=== PATIENT | female | born 1995 | race Two or more races ===

== ENCOUNTER → 2020-05-29 08:38 | Outpatient (BNVA) | payer OTHER, SELFPAY | PROVIDERS: PCP Family Medicine; Visit Provider Nurse Practitioner | DX: R10.33 Periumbilical pain (principal); K21.9 Gastro-esophageal reflux disease without esophagitis; R14.0 Abdominal distension (gaseous); K58.2 Mixed irritable bowel syndrome; Z87.891 Personal history of nicotine dependence | CPT/HCPCS: Q3014 ==

== ENCOUNTER 2023-01-27 09:56 | Outpatient (REF) | payer OTHER, MEDICAID, SELFPAY ==
[2023-01-27 11:19] LABS: MANUAL DIFF FLAG NO
[2023-01-27 11:24] LABS: Basophils Absolute Auto 0.1 X10*3/uL (0.0-0.2); Basophils Percent Auto 0.5 % (0-2); Eosinophils Absolute Auto 0.2 X10*3/uL (0.0-0.4); Eosinophils Percent Auto 2.1 % (0-4); Hematocrit 33.5 % (37.0-47.0); Imm Gran Abs Auto 0.04 X10*3/uL (0.00-0.03); Imm Gran Pct Auto 0.4 % (0.0-0.4); Lymphocytes Absolute Auto 2.2 X10*3/uL (1.2-4.9); Lymphocytes Percent Auto 21.6 % (20-40); Mean Corpuscular HGB Conc 29.9 g/dl (31.0-35.0); Mean Corpuscular Hemoglobin 24.4 pg (27.0-33.0); Mean Corpuscular Volume 81.7 fL (80.0-98.0); Monocytes Absolute Auto 0.5 X10*3/uL (0.1-1.2); Monocytes Percent Auto 5.1 % (2-11); Neutrophils Absolute Auto 7.3 x10*3/uL (2.0-8.3); Neutrophils Percent Auto 70.3 % (45-73); Platelet Count 367 X10*3/uL (160-400); Red Cell Distribution Width 16.8 % (11.0-16.0); White Blood Count 10.3 X10*3/uL (4.8-10.8)
[2023-01-27 11:58] LABS: Cholesterol 150 mg/dL (<200); HDL Cholesterol 39 mg/dL (>40); LDL Cholesterol Calculated 95 mg/dL (<100); Rheumatoid Factor < 13.0 IU/mL (<15.0); Triglycerides 83 mg/dL (<150)
[2023-01-27 12:00] LABS: Alanine Aminotransferase 24 U/L (0-31); Albumin Level 4.2 g/dL (3.5-5.0); Alkaline Phosphatase 95 U/L (39-117); Anion Gap 12 (12-20); Aspartate Amino Transferase 17 U/L (5-31); Bilirubin Total 0.3 mg/dL (0.0-1.0); Blood Urea Nitrogen 10 mg/dL (9-16); C Reactive Protein 2.99 mg/dL (< or = 0.50); Calcium 9.6 mg/dL (8.4-10.2); Carbon Dioxide 23 mmol/L (22-29); Chloride 107 mmol/L (96-108); Estimated Glomerular Filt Rate > 60; Glucose Random 107 mg/dL (60-115); Potassium 3.4 mmol/L (3.3-5.1); Sodium 139 mmol/L (135-145); TSH reflex Free T4 0.67 uIU/mL (0.32-4.0); Total Protein 8.5 g/dL (6.5-8.0)
[2023-01-27 12:04] LABS: Erythrocyte Sedimentation Rate 57 MM/HR (0-20)
[2023-01-27 12:27] LABS: Reflex LDLD? No
[2023-01-29 16:43] LABS: Gliadin Deamidated IgA Ab 1.2 U/mL; Gliadin Deamidated IgG Ab <1.0 U/mL
== END 2023-01-27 09:57 | disposition home or self-care (01) ==
LOC: HO.HHCL 09:56
PROVIDERS: Visit Provider Family Medicine
DX: M25.50 Pain in unspecified joint (principal); R03.0 Elevated blood-pressure reading, without diagnosis of hypertension; E03.9 Hypothyroidism, unspecified; K21.9 Gastro-esophageal reflux disease without esophagitis
CPT/HCPCS: 36415; 80053; 80061; 84443; 85025; 85652; 86140; 86258; 86431

== ENCOUNTER 2023-01-29 12:47 | Outpatient (REF) | payer OTHER, SELFPAY ==
[2023-01-30 14:13] LABS: Cyclic Citrullinated Peptide <16 UNITS
== END 2023-01-29 12:48 | disposition home or self-care (01) ==
LOC: HO.LAB 12:47
PROVIDERS: PCP Family Medicine; Visit Provider Family Medicine
DX: M25.50 Pain in unspecified joint (principal)
CPT/HCPCS: 36415; 86200

== ENCOUNTER 2023-02-27 11:23 | Outpatient (REF) | payer OTHER, SELFPAY ==
[2023-02-27 15:04] LABS: Iron 45 mcg/dL (30-160); Percent Iron Saturation 14 % (15-50); Total Iron Binding Capacity 325 mcg/dL (228-428); Unsaturated Iron Binding 280 ug/dL
[2023-02-27 15:08] LABS: Ferritin 15 ng/mL (10-122)
[2023-02-27 15:22] LABS: Folate 8.8 ng/mL (> or = 4.0); Vitamin B12 443 pg/mL (200-900)
== END 2023-02-27 11:24 | disposition home or self-care (01) ==
LOC: HO.LAB 11:23
PROVIDERS: PCP Family Medicine; Visit Provider Family Medicine
DX: D64.9 Anemia, unspecified (principal); K21.9 Gastro-esophageal reflux disease without esophagitis
CPT/HCPCS: 36415; 82607; 82728; 82746; 83540; 87338

== ENCOUNTER 2023-07-29 10:41 | Outpatient (REF) | payer OTHER, SELFPAY ==
[2023-07-29 11:19] LABS: MANUAL DIFF FLAG NO
[2023-07-29 11:38] LABS: Basophils Absolute Auto 0.1 X10*3/uL (0.0-0.2); Basophils Percent Auto 0.6 % (0-2); Eosinophils Absolute Auto 0.6 X10*3/uL (0.0-0.4); Eosinophils Percent Auto 4.7 % (0-4); Hematocrit 33.1 % (37.0-47.0); Hemoglobin 9.8 g/dl (12.0-16.0); Imm Gran Abs Auto 0.05 X10*3/uL (0.00-0.03); Imm Gran Pct Auto 0.4 % (0.0-0.4); Lymphocytes Absolute Auto 3.6 X10*3/uL (1.2-4.9); Lymphocytes Percent Auto 29.8 % (20-40); Mean Corpuscular HGB Conc 29.6 g/dl (31.0-35.0); Mean Corpuscular Hemoglobin 22.9 pg (27.0-33.0); Mean Corpuscular Volume 77.3 fL (80.0-98.0); Monocytes Absolute Auto 0.7 X10*3/uL (0.1-1.2); Neutrophils Absolute Auto 7.1 x10*3/uL (2.0-8.3); Neutrophils Percent Auto 58.5 % (45-73); Platelet Count 350 X10*3/uL (160-400); Red Blood Count 4.28 X10*6/uL (4.20-5.50); Red Cell Distribution Width 18.6 % (11.0-16.0); White Blood Count 12.1 X10*3/uL (4.8-10.8)
[2023-07-29 12:25] LABS: Alanine Aminotransferase 26 U/L (0-31); Albumin Level 3.9 g/dL (3.5-5.0); Alkaline Phosphatase 95 U/L (39-117); Anion Gap 12 (12-20); Aspartate Amino Transferase 17 U/L (5-31); Bilirubin Total 0.3 mg/dL (0.0-1.0); Blood Urea Nitrogen 11 mg/dL (9-16); Calcium 9.5 mg/dL (8.4-10.2); Carbon Dioxide 26 mmol/L (22-29); Chloride 105 mmol/L (96-108); Estimated Glomerular Filt Rate > 60; Glucose Random 102 mg/dL (60-115); Iron 24 mcg/dL (30-160); Percent Iron Saturation 7 % (15-50); Potassium 3.7 mmol/L (3.3-5.1); Sodium 139 mmol/L (135-145); Total Iron Binding Capacity 341 mcg/dL (228-428); Total Protein 7.9 g/dL (6.5-8.0); Unsaturated Iron Binding 317 ug/dL
[2023-07-29 12:32] LABS: Ferritin 8 ng/mL (10-122)
[2023-07-29 12:42] LABS: Folate 4.5 ng/mL (> or = 4.0); Vitamin B12 486 pg/mL (200-900)
== END 2023-07-29 10:42 | disposition home or self-care (01) ==
LOC: HO.HHCL 10:41
PROVIDERS: Visit Provider Family Medicine
DX: D64.9 Anemia, unspecified (principal); R03.0 Elevated blood-pressure reading, without diagnosis of hypertension
CPT/HCPCS: 36415; 80053; 82607; 82728; 82746; 83540; 85025

== ENCOUNTER 2024-01-07 09:56 | Outpatient (AMB) | payer OTHER, SELFPAY ==
--- NOTE | 2024-01-07 09:57 | MHC.OFFVIS ---
Vital Signs 01/07/24 10:00 Height 5 ft 1 in Weight 276 lb BMI 52.1 Intake Visit Reasons: Hemorrhoids Intake Note: This patient presents for hemorrhoids. Pt c/o; reports no rectal bleeding, reports constipation, occasional straining with bowel movements. Heat Treating Operator Required: No Goodyear Welter: Good[employer] Welter Present (Rickie) Accompanied by: Self / Same As Patient Allergies sulfamethoxazole [From BACTRIM] Allergy (Mild, Verified 01/07/24 10:10) LIVER PROBLEMS trimethoprim [From BACTRIM] Allergy (Mild, Verified 01/07/24 10:10) LIVER PROBLEMS Medication List - Last Reconciled 01/07/24 by Aston Waller MD albuterol sulfate 90 mcg/actuation 2 puffs PO Q4-6H PRN cholecalciferol (vitamin D3) 25 mcg PO DAILY dicyclomine 20 mg PO QID docusate sodium (Colace) 100 mg PO DAILY 30 days levothyroxine 137 mcg PO DAILY loratadine 10 mg PO DAILY montelukast 10 mg PO QPM omeprazole 20 mg PO DAILY PRN simethicone 180 mg PO TID 30 days wheat dextrin (Benefiber Healthy Shape) 2 grams PO BID 30 days HPI HPI Hemorrhoids: Details: [age] year old female referred for hemorrhoid issues. She describes periodic swelling and pain as well as occasional bleeding from her hemorrhoids. She does admit to a long history of constipation and she says that he has had poor control of this She says that her hemorrhoid symptoms happen on and off and these are not constant. [facility] Medical History (Updated 01/07/24 @ 10:23 by Aston Waller MD) Anxiety Hemorrhoids with complication Surgical History No pertinent past surgical history Social History Household Members: Family Alcohol intake: current Alcohol intake frequency: holidays/special occasions only Review of Systems Const Denies chills and Denies fever(s) Card Denies chest pain, Denies dyspnea and Denies dyspnea on exertion Resp Denies cough, Denies dyspnea and Denies dyspnea on exertion GI Denies hematochezia and Denies change in bowel habits Denies hematuria Musc Denies back pain and Denies limited range of motion Neuro Denies focal weakness and Denies convulsions Psych Reports anxiety, Denies depression and Denies mood swings Physical Exam Vital Signs: BMI result Body Mass Index 52.1 Const Other: Morbidly obese General: comfortable and no acute distress Orientation/consciousness: patient oriented x3 Neck Neck: Yes no lymphadenopathy Resp Auscultation: clear to auscultation bilaterally Cardio Rhythm: regular rhythm GI Palpation (GI): Soft to palpation, nontender and no guarding Neuro General: patient oriented x3 Office Procedures Anoscopy She was in joyce-knife position. The anoscope was gently inserted. A full examination of the anal canal was done. She did have mixed hemorrhoidal columns, internal and external on both the left and the right side. This were non bulky. There was no bleeding. There was no fissure. There was no ulceration. There was no induration on digital exam. [id number] Assessment & Plan Assessment & Plan (1) Hemorrhoids with complication: Code(s): K64.8 - Other hemorrhoids Category: Medical Plan: She does have internal and external hemorrhoidal columns which are not bulky. However, he does describe happens with periodic swelling, bleeding and pain. She does admit that her main problem is that she gets constipated frequently. I explained to her that control of her constipation we will be garcia to controlling symptoms of her hemorrhoids. She says she had been told in the past that she has IBS. I am going to prescribe her Colace b.i.d. She is already taking fiber supplements I told her that if she has persistent problems down the line, she can follow up with me in the office. She is comfortable with the plan. I also counseled her on the benefits of weight loss as her body mass index extremely high at 52. Coding Level of Care Code New Pt Level 3 (35687) Diagnoses Hemorrhoids with complication K64.8 CPT Codes Details - CPT: [id number] ([id number])
[2024-01-07 10:00] VITALS: BMI 52.1
== END 2024-01-07 10:22 | disposition home or self-care (01) ==
PROVIDERS: PCP Family Medicine; Visit Provider Surgery
DX: K64.8 Other hemorrhoids (principal)
CPT/HCPCS: 46600; 99203

== ENCOUNTER → 2024-01-07 09:56 | Outpatient (BNVA) | payer OTHER, SELFPAY | PROVIDERS: PCP Family Medicine; Visit Provider Surgery | DX: K64.8 Other hemorrhoids (principal) | CPT/HCPCS: 46600; 99202 ==

== ENCOUNTER 2024-01-28 11:25 | Outpatient (REF) | payer OTHER, SELFPAY ==
[2024-01-28 14:04] LABS: Alanine Aminotransferase 23 U/L (0-31); Albumin Level 4.1 g/dL (3.5-5.0); Alkaline Phosphatase 98 U/L (39-117); Anion Gap 13 (12-20); Aspartate Amino Transferase 22 U/L (5-31); Bilirubin Total 0.2 mg/dL (0.0-1.0); Blood Urea Nitrogen 12 mg/dL (9-16); Carbon Dioxide 25 mmol/L (22-29); Chloride 107 mmol/L (96-108); Estimated Glomerular Filt Rate > 60; Ferritin 11 ng/mL (10-122); Glucose Random 100 mg/dL (60-115); Iron 18 mcg/dL (30-160); Percent Iron Saturation 5 % (15-50); Potassium 4.1 mmol/L (3.3-5.1); Sodium 141 mmol/L (135-145); Total Iron Binding Capacity 352 mcg/dL (228-428); Unsaturated Iron Binding 334 ug/dL
[2024-01-28 14:17] LABS: Folate 10.3 ng/mL (> or = 4.0); Vitamin B12 537 pg/mL (200-900)
== END 2024-01-28 11:26 | disposition home or self-care (01) ==
LOC: HO.HHCL 11:25
PROVIDERS: Visit Provider Family Medicine
DX: E03.9 Hypothyroidism, unspecified (principal); D64.9 Anemia, unspecified
CPT/HCPCS: 36415; 80053; 82607; 82728; 82746; 83540; 84443

== ENCOUNTER 2024-02-23 06:00 | Outpatient (REF) | payer OTHER, SELFPAY ==
--- NOTE | 2024-02-23 | EMG_ITS ---
Bilateral median and ulnar motor and sensory studies were performed. Bilateral radial sensory studies were performed and paraspinal muscles were tested with a needle. IMPRESSION: This study is unremarkable with no evidence of median or ulnar entrapment neuropathy or radiculopathy. MD FREIDA Lozano/BANDAR / [id number]
== END 2024-02-23 06:01 | disposition home or self-care (01) ==
LOC: HO.NEURO 06:00
PROVIDERS: PCP Family Medicine; Visit Provider Family Medicine
DX: R20.0 Anesthesia of skin (principal)
CPT/HCPCS: 95886; 95911

== ENCOUNTER → 2024-03-09 20:30 | Outpatient (REF) | payer OTHER, SELFPAY ==
--- OUTSIDE RECORDS SUMMARY | 2024-03-09 21:10 | XMS_ITS | Encounter Summary ---
Author Organization [employer] Address [address] [place] [address] 7 [place] [address] Care Team Providers Care Entry Specialists Name Role Phone Bijal Mejia MD Primary Care Provider [phone] Puma Sorto Unavailable Unavailable Encounter Details Date Type Department Care Team (Late st Contact Info) Description 02/02/2023 Orders Only [facility] MEDICINE [address] [place], [place] [phone] Bijal Mejia MD [address] [place], [place] [phone] Anemia, unspecified type (Primary Dx) Social History Tobacco Use Types Packs/Day Years Used Date Smoking Tobacco: Never Smokeless Tobacco: Never Depression Answer Date Recorded Patient Health Questionnaire-9 Score 3 01/22/2023 Patient Health Questionnaire-9 Score 3 01/22/2023 Last PHQ-9: Questionnaire Data Not on file 1 03/25/2022 Housing Stability Answer Date Recorded What is your housing situation today? I have magdalena arroyo 01/16/[address] you li ve. Do you have problems with any of the following? None of the above 01/16/2023 Food Insecurity Answer Date Recorded Within the past 12 months, y ou worried that your food would run out before you got money to buy more: Never True 01/16/2023 Within the past 12 months,th e food you bought just didn't last and you didn't have enough money to get more: Never True 02/2022 Transportation Answer Date Recorded In the past 12 months, has l ack of transportation kept you from medical appts, meetings, work or from getting things needed for daily living? No 01/16/2023 Utilities Answer Date Recorded In the past 12 months, has t he electric, gas, oil or water company threatened to shut off services in your home? No 01/16/2023 Depression Answer Date Recorded Patient Health Questionnaire-2 Score 0 01/22/2023 Comments Unknown Sex and Gender Information Value Date Recorded Sex Assigned at Female 02/20/2022 12:34 PM EST Legal Sex Female 8:34 PM EDT Gender Identity Female 02/20/2022 12:34 PM EST Sexual Orientation Choose not to disclose 2023 1:15 PM EDT Sexual Orientation Straight 06/15/2023 1: 15 PM EDT documented as of this encounter Plan of Treatment Not on file documented as of this encounter Procedures Procedure Name Priority Date/Time Associated Diagnosis Comments VITAMIN B12/FOLATE, SERUM PANEL Routine 02/27/2023 11:52 AM EST Anemia, unspecified type IRON AND TOTAL IRON BINDING CAPACITY Routine 02/27/2023 11:52 AM EST Anemia, unspecified type FERRITIN Routine 02/27/2023 11:52 AM EST Anemia, unspecified type documented in this encounter Results * Vitamin B12/Folate, Serum Panel (02/27/2023 11:52 AM EST) Vitamin B12 443 200 - 900 pg/mL [facility] Comment:NORMAL 200-900 PG/ML INDETERMINATE 160-199 PG/ML DEFICIENT < 160 PG/ML Folate 8.8 > or = 4.0 ng/mL [facility] Comment:Reference Values:> o r = 4.0 ng/mL< 4.0 ng/mL suggests folate deficiency Methotrexate, aminopterin and folinic acid(leucovorin) are chemotherapeutic agents whose molecularstructures are similar to folate; therefore, the Architectfolate assay cannot be used for patients using these drugs. 02/27/2023 11:5 2 AM EST 02/27/2023 11:52 AM EST us Bijal Mejia MD LAB BLOOD ORDERABLES Final Resul t [facility] [address] [place] [phone] * (ABNORMAL) Iron And Total Iron Binding Capacity (02/27/2023 11:52 AM EST) Iron 45 30 - 160 mcg/dL [facility] Comment:Moderate Hemolysis Total Iron Binding Capacity 325 228 - 428 mcg/dL [facility] Percent Iron Saturation 14(L) 15 - 50 % [facility] Unsaturated Iron Binding 280 ug/dL [facility] Blood Venous blood specimen / Unknown 02/27/2023 11:52 AM EST 02/27/2023 11:52 AM EST us Bijal Mejia MD LAB BLOOD ORDERABLES Final Resul t Performing Organization Address [facility] Co de Phone Number [facility] [address] [place] [phone] * Ferritin (02/27/2023 11:52 AM EST) Ferritin 15 10 - 122 ng/mL [facility] Blood Venous blood specimen / Unknown 02/27/2023 11:52 AM EST 02/27/2023 11:52 AM EST Bijal Mejia MD LAB BLOOD ORDERABLES Final Resul t Performing Organization Address [facility] de Phone Number [facility] [address] [place] [phone] documented in this encounter Visit Diagnoses Diagnosis Anemia, unspecified type- Primary documented in this encounter Additional Health Concerns Assessment Noted Time PHQ-9 Depression Total Score: 3 01/23/20 23 3:38 PM EST documented as of this encounter Care Teams Entry Specialists Relationship Specialty Start Date End Date Bijal Mejia MD [address] [place] [phone] PCP - General Family Medicine 02/16/18 Puma Sorto FNP [address] [place] [address] Nurse Practitioner Family Medicine 01/06/23 documented as of this encounter
--- OUTSIDE RECORDS SUMMARY | 2024-03-09 21:10 | XMS_ITS | Encounter Summary ---
Author Organization [employer] Address [address] [place] [address] [place] [address] Care Team Providers Care Fiberglass Container Winding Operator Name Role Phone Bijal Mejia MD Primary Care Provider [phone] Puma Sorto Unavailable Unavailable Encounter Details Date Type Department Care Team (Late st Contact Info) Description 09/05/2022 Orders Only [facility] MEDICINE [address] [place], [place] [phone] Tara Amin LPN Social History Tobacco Use Types Packs/Day Years Used Date Smoking Tobacco: Never Assessed Depression Answer Date Recorded Patient Health Questionnaire-9 Score 4 03/18/2022 Depression Answer Date Recorded Patient Health Questionnaire-2 Score 0 03/18/2022 Comments Unknown Sex and Gender Information Value [...] on file documented as of this encounter Visit Diagnoses Not on filedocumented in this encounter Additional Health Concerns Assessment Noted Time PHQ-9 Depression Total Score: 4 03/18/19 23 1:44 PM EST documented as of this encounter Care Teams Fiberglass Container Winding Operator Relationship Specialty Start Date End Date Bijal Mejia MD [address] [place] [address] PCP - General Family Medicine 02/16/18 Puma Sorto FNP [address] [place] [address] Nurse Practitioner Family Medicine 01/06/23 documented as of this encounter
--- OUTSIDE RECORDS SUMMARY | 2024-03-09 21:10 | XMS_ITS | Encounter Summary ---
Author Organization [employer] Address [address] [place] [address] Care Team Providers Care Orchard Pruner Name Role Phone Bijal Mejia MD Primary Care Provider [phone] Puma Sorto Unavailable Unavailable Reason for Visit * Reason Onset Date Comments Appointment Request 04/20/2023 Encounter Details Date Type Department Care Team ([facility] st Contact Info) Description 04/20/2023 Telephone [facility] MEDICINE [address] [place], [place] [phone] Bijal Mejia MD [address] [place], [place] [phone] Appointment Request Social History Tobacco Use Types Packs/Day Years Used Date Smoking Tobacco: Never Smokeless Tobacco: Never Depression Answer Date Recorded Patient Health Questionnaire-9 Score 8 04/16/2023 Patient Health Questionnaire-9 Score 8 04/16/2023 Last PHQ-9: Questionnaire Data Not on file 0 04/16/2023 Housing Stability Answer Date Recorded What is [...] Answer Date Recorded Patient Health Questionnaire-2 Score 2 04/16/2023 Comments Unknown Sex and Gender Information Value Date Recorded Sex Assigned at Female 02/20/2022 12:34 PM EST Legal Sex Female 8:34 PM EDT Gender Identity Female 02/20/2022 12:34 PM EST Sexual Orientation Choose not to disclose 2023 1:15 PM EDT Sexual Orientation Straight 06/15/2023 1: 15 PM EDT documented as of this encounter Miscellaneous Notes * Telephone Encounter - Kelly Sanders - 04/20/2023 8:59 AM EST Tc from pt requesting to r/s PAP appt . documented in this encounter Plan of Treatment Not on file documented as of this encounter Visit Diagnoses Not on filedocumented in this encounter Additional Health Concerns Assessment Noted Time PHQ-9 Depression Total Score: 8 04/16/19 24 2:34 PM EST documented as of this encounter Care Teams Orchard Pruner Relationship Specialty Start Date End Date Bijal Mejia MD [address] [place] [address] PCP - General Family Medicine 02/16/18 Puma Sorto FNP [address] [place] [address] Nurse Practitioner Family Medicine 01/06/23 documented as of this encounter
--- OUTSIDE RECORDS SUMMARY | 2024-03-09 21:10 | XMS_ITS | Encounter Summary ---
Author Organization [employer] Address [address] [place] [address] 7 [place] [address] Care Team Providers Care Java Designer Name Role Phone Bijal Mejia MD Primary Care Provider [phone] Puma Sorto Unavailable Unavailable Encounter Details Date Type Department Care Team (Late st Contact Info) Description 09/11/2022 Orders Only [facility] [address] [place], [place] [phone] Zoya Maldonado LPN Social History Tobacco Use Types Packs/Day [...] documented as of this encounter Care Teams Java Designer Relationship Specialty Start Date End Date Bijal Mejia MD [address] [place] [address] PCP - General Family Medicine 02/16/18 Puma Sorto FNP [address] [place] [address] Nurse Practitioner Family Medicine 01/06/23 documented as of this encounter
--- OUTSIDE RECORDS SUMMARY | 2024-03-09 21:10 | XMS_ITS | Encounter Summary ---
Author Organization [employer] Address [address] [place] [address] [address] [place] [address] Care Team Providers Care Varnisher Name Role Phone Bijal Mejia MD Primary Care Provider [phone] Puma Sorto Unavailable Unavailable Reason for Visit * Reason Onset Date Comments march recall 03/03/2024 Encounter Details Date Type Department Care Team ([facility] st Contact Info) Description 03/03/2024 Telephone [facility] MEDICINE [address] [place] [address] Nesha Espana [place] march recall Social History Tobacco Use Types Packs/Day Years Used Date Smoking Tobacco: Never Smokeless Tobacco: Never Alcohol Answer Date Recorded How often do you have a drink containing alcohol ? 2 01/28/2024 Average Number of Drinks Not on file 024 Frequency of Binge Drinking Not on file 01/16 Depression Answer Date Recorded Patient Health Questionnaire-9 Score 7 07/30/2023 Patient Health Questionnaire-9 Score 7 07/30/2023 Last PHQ-9: Questionnaire Data Not on file 0 07/30/2023 Housing Stability Answer Date Recorded What is your housing situation today? I have magdalena arroyo 01/28/[address] you li ve. Do you have problems with any of the following? None of the above 01/28/2024 Food Insecurity Answer Date Recorded Within the past 12 months, y ou worried that your food would run out before you got money to buy more: Never True 01/28/2024 Within the past 12 months,th e food you bought just didn't last and you didn't have enough money to get more: Never True 01/2024 Transportation Answer Date Recorded In the past 12 months, has l ack of transportation kept you from medical appts, meetings, work or from getting things needed for daily living? No 01/28/2024 Utilities Answer Date Recorded In the past 12 months, has t he electric, gas, oil or water company threatened to shut off services in your home? Already shut Off 01/28/2024 Depression Answer Date Recorded Patient Health Questionnaire-2 Score 0 07/30/2023 Internet Access Answer Date Recorded Internet Access Q1 Yes 01/28/2024 Internet Access Q2 Not on file 01/28/2024 Comments Unknown Sex and Gender Information Value Date Recorded Sex Assigned at Female 02/20/2022 12:34 PM EST Legal Sex Female 8:34 PM EDT Gender Identity Female 02/20/2022 12:34 PM EST Sexual Orientation Choose not to disclose 2023 1:15 PM EDT Sexual Orientation Straight 06/15/2023 1: 15 PM EDT documented as of this encounter Miscellaneous Notes * Telephone Encounter - Nesha Espana [place] - 03/03/2024 4:18 PM EST .JESSICA called the patient to schedule a visit and no answer. Message left to call back and schedule. (March recall pap) documented in this encounter Plan of Treatment Not on file documented as of this encounter Visit Diagnoses Not on filedocumented in this encounter Additional Health Concerns Assessment Noted Time PHQ-9 Depression Total Score: 7 07/30/19 24 1:24 PM EDT documented as of this encounter Care Teams Varnisher Relationship Specialty Start Date End Date Bijal Mejia MD [address] [place] [address] PCP - General Family Medicine 02/16/18 Puma Sorto FNP [address] [place] [address] Nurse Practitioner Family Medicine 01/06/23 documented as of this encounter
--- OUTSIDE RECORDS SUMMARY | 2024-03-09 21:10 | XMS_ITS | Encounter Summary ---
Author Organization [employer] Address [address] [place] [address] [place] [address] Care Team Providers Care Blaster Helper Name Role Phone Bijal Mejia MD Primary Care Provider [phone] Puma Sorto Unavailable Unavailable Reason for Referral * Imaging (Routine) - Closed Specialty Diagnoses / Procedures Referred By Contac t Referred To Contact Radiology Diagnoses Chronic nonintractable headache, unspecified headache type Papilledema Procedures MR Brain w/o Contrast Bijal Mejia MD [address] [place] [address] Phone: tel: fax: [facility] [address] [place] [address] Phone: tel: fax: Referral ID Status Reason Start Date Expiration Date Visits Re quested Visits Authorized [id number] Closed 07/22/2023 07/21/2024 1 1 Encounter Details Date Type Department Care Team (Late st Contact Info) Description 07/22/2023 Orders Only [facility] [address] [place], [place] [phone] Bijal Mejia MD [address] [place], [place] [phone] Anemia, unspecified type (Primary Dx); Chronic nonintractable headache, unspecified headache type; Papilledema; Elevated blood pressure reading in office without diagnosis of hypertension Social History Tobacco Use Types Packs/Day Years Used Date Smoking Tobacco: Never Smokeless Tobacco: Never Depression Answer Date Recorded Patient Health Questionnaire-9 Score 18 06/22/2023 Patient Health Questionnaire-9 Score 18 06/22/2023 Last PHQ-9: Questionnaire Data Not on file 0 06/22/2023 Housing Stability Answer Date Recorded What is [...] Answer Date Recorded Patient Health Questionnaire-2 Score 6 06/22/2023 Comments Unknown Sex and Gender Information Value [...] Diagnosis Comments VITAMIN B12/FOLATE, SERUM PANEL Routine 07/29/2023 10:43 AM EDT Anemia, unspecified type CBC WITH AUTO DIFFERENTIAL Routine 07/29/2023 10:43 AM EDT Anemia, unspecified type IRON AND TOTAL IRON BINDING CAPACITY Routine 07/29/2023 10:43 AM EDT Anemia, unspecified type FERRITIN Routine 07/29/2023 10:43 AM EDT Anemia, unspecified type COMPREHENSIVE METABOLIC PANEL Routine 07/29/2023 10:43 AM EDT Elevated blood pressure reading in office without diagnosis of hypertension MR BRAIN WO CONTRAST Routine 07/02/2023 Chronic nonintractable headache, unspecified headache type Papilledema documented in this encounter Results * Vitamin B12/Folate, Serum Panel (07/29/2023 10:43 AM EDT) Vitamin B12 486 200 - 900 pg/mL [facility] Comment:NORMAL 200-900 PG/ML INDETERMINATE 160-199 PG/ML DEFICIENT < 160 PG/ML Folate 4.5 > or = 4.0 ng/mL [facility] Comment:Reference Values:> o r = 4.0 ng/mL< 4.0 ng/mL suggests folate deficiency Methotrexate, aminopterin and folinic acid(leucovorin) are chemotherapeutic agents whose molecularstructures are similar to folate; therefore, the Architectfolate assay cannot be used for patients using these drugs. 07/29/2023 10:4 3 AM EDT 07/29/2023 11:15 AM EDT us Bijal Mejia MD LAB BLOOD ORDERABLES Final Resul t [facility] [address] [place] [phone] * (ABNORMAL) Iron And Total Iron Binding Capacity (07/29/2023 10:43 AM EDT) Iron 24(L) 30 - 160 mcg/dL [facility] Total Iron Binding Capacity 341 228 - 428 mcg/dL [facility] Percent Iron Saturation 7(L) 15 - 50 % [facility] Unsaturated Iron Binding 317 ug/dL [facility] Blood Venous blood specimen / Unknown 07/29/2023 10:43 AM EDT 07/29/2023 11:15 AM EDT us Bijal Mejia MD LAB BLOOD ORDERABLES Final Resul t Performing Organization Address City/[facility]/ZIP Co de Phone Number [facility] [address] [place] [phone] * (ABNORMAL) Ferritin (07/29/2023 10:43 AM EDT) [facility] Ferritin 8(L) 10 - 122 ng/mL [facility] Blood Venous blood specimen / Unknown 07/29/2023 10:43 AM EDT 07/29/2023 11:15 AM EDT Bijal Mejia MD LAB BLOOD ORDERABLES Final Resul t Performing Organization Address [facility] Co de Phone Number [facility] [address] [place] [phone] * (ABNORMAL) CBC auto differential (07/29/2023 10:43 AM EDT) [facility] White Blood Count 12.1(H) 4.8 - 10.8 X10*3/uL [facility] Red Blood Count 4.28 4.20 - 5.50 X10*6/uL [facility] Hemoglobin 9.8(L) 12.0 - 16.0 g/dl [facility] Hematocrit 33.1(L) 37.0 - 47.0 % [facility] Mean Corpuscular Volume 77.3(L) 80.0 - 98.0 fL [facility] Mean Corpuscular Hemoglobin 22.9(L) 27.0 - 33.0 pg [facility] Mean Corpuscular HGB Conc 29.6(L) 31.0 - 35.0 g/dl [facility] Red Cell Distribution Width 18.6(H) 11.0 - 16.0 % [facility] Platelet Count 350 160 - 400 X10*3/uL [facility] Mean Platelet Volume 10.0 9.4 - 12.3 fL [facility] Neutrophils Percent Auto 58.5 45 - 73 % [facility] Imm Gran Pct Auto 0.4 0.0 - 0.4 % [facility] Lymphocytes Percent Auto 29.8 20 - 40 % [facility] Monocytes Percent Auto 6.0 2 - 11 % [facility] Eosinophils Percent Auto 4.7(H) 0 - 4 % [facility] Basophils Percent Auto 0.6 0 - 2 % [facility] NRBC Pct Auto 0.0 0.0 - 0.2 /100WBC [facility] Neutrophils Absolute Auto 7.1 2.0 - 8.3 x10*3/uL [facility] Imm Gran Abs Auto 0.05(H) 0.00 - 0.03 X10*3/uL [facility] Lymphocytes Absolute Auto 3.6 1.2 - 4.9 X10*3/uL [facility] Monocytes Absolute Auto 0.7 0.1 - 1.2 X10*3/uL [facility] Eosinophils Absolute Auto 0.6(H) 0.0 - 0.4 X10*3/uL [facility] Basophils Absolute Auto 0.1 0.0 - 0.2 X10*3/uL [facility] NRBC Abs Auto 0.000 0.0 - 0.012 X10*3/uL [facility] Blood Venous blood specimen / Unknown 07/29/2023 10:43 AM EDT 07/29/2023 11:15 AM EDT us Bijal Mejia MD LAB BLOOD ORDERABLES Final Resul t [facility] [address] [place] [phone] * Comprehensive Metabolic Panel (07/29/2023 10:43 AM EDT) Sodium 139 135 - 145 mmol/L [facility] Potassium 3.7 3.3 - 5.1 mmol/L [facility] Chloride 105 96 - 108 mmol/L [facility] Carbon Dioxide 26 22 - 29 mmol/L [facility] Anion Gap 12 12 - 20 [facility] Urea Nitrogen (BUN) 11 9 - 16 mg/dL [facility] Creatinine, Serum 0.65 0.5 - 1.4 mg/dL [facility] Estimated Glomerular Filt Rate >60 [facility] Comment:NOTE: For -Am erican individuals, multiply the result by 1.210.Chronic Kidney Disease: Estimated GFR < 60 mL/min/[id number] Kidney Disease: Estimated GFR < 15 mL/min/1.73m2 Glucose 102 60 - 115 mg/dL [facility] Calcium 9.5 8.4 - 10.2 mg/dL [facility] Bilirubin, Total 0.3 0.0 - 1.0 mg/dL [facility] Aspartate Amino Transferase 17 5 - 31 U/L [facility] Alanine Aminotransferase 26 0 - 31 U/L [facility] Total Protein 7.9 6.5 - 8.0 g/dL [facility] Albumin Level 3.9 3.5 - 5.0 g/dL [facility] Alkaline Phosphatase 95 39 - 117 U/L [facility] Blood Venous blood specimen / Unknown 07/29/2023 10:43 AM EDT 07/29/2023 11:15 AM EDT Bijal Mejia MD LAB BLOOD ORDERABLES Final Resul t [facility] [address] [place] [phone] * MR Brain w/o Contrast (07/02/2023) Anatomical Region Laterality Modality Brain Magnetic Resonan ce Bijal Mejia MD IMG MRI PROCEDURES Final Result documented in this encounter Visit Diagnoses Diagnosis Anemia, unspecified type- Primary Chronic nonintractable headache, unspecified headache type Papilledema Unspecified papilledema Elevated blood pressure reading in office without diagnosis of hypertension documented in this encounter Additional Health Concerns Assessment Noted Time PHQ-9 Depression Total Score: 18 024 3:30 PM EDT documented as of this encounter Care Teams Blaster Helper Relationship Specialty Start Date End Date Bijal Mejia MD [address] [place] [address] PCP - General Family Medicine 02/16/18 Puma Sorto FNP [address] [place] [address] Nurse Practitioner Family Medicine 01/06/23 documented as of this encounter
--- OUTSIDE RECORDS SUMMARY | 2024-03-09 21:10 | XMS_ITS | Encounter Summary ---
Author Organization [employer] Address [address] [place] [address] [place] [address] Care Team Providers Care Warp Coiler Name Role Phone Bijal Mejia MD Primary Care Provider [phone] Puma Sorto Unavailable Unavailable Reason for Visit * Reason Onset Date Comments Med Change Request Prior Authorization 01/26/2023 Encounter Details Date Type Department Care Team ([facility] st Contact Info) Description 01/26/2023 Refill [facility] [address] [place], [place] [phone] Bijal Mejia MD [address] [place] [address] Social History Tobacco Use Types Packs/Day Years [...] encounter Miscellaneous Notes * Telephone Encounter - Jaimie Smith - 02/02/2023 3:32 PM EST CHACHA req for Asmanex submitted through [facility]; awaiting decision. documented in this encounter Plan of Treatment Not on file documented as of this encounter Visit Diagnoses Not on filedocumented in this encounter Additional Health Concerns Assessment Noted Time PHQ-9 Depression Total Score: 3 01/23/20 23 3:38 PM EST documented as of this encounter Care Teams Warp Coiler Relationship Specialty Start Date End Date Bijal Mejia MD [address] [place] [address] PCP - General Family Medicine 02/16/18 Puma Sorto FNP [address] [place] [address] Nurse Practitioner Family Medicine 01/06/23 documented as of this encounter
--- OUTSIDE RECORDS SUMMARY | 2024-03-09 21:10 | XMS_ITS | Encounter Summary ---
Author Organization [employer] Address [address] [facility] 7 [place] [address] Care Team Providers Care Staff Radiographer Name Role Phone Bijal Mejia MD Primary Care Provider [phone] Puma Sorto Unavailable Unavailable Encounter Details Date Type Department Care Team (Late st Contact Info) Description 07/29/2023 Orders Only [facility] [address] [place], [place] [phone] Bijal Mejia MD [address] [place], [place] [phone] Social History Tobacco Use Types Packs/Day Years [...] Recorded Patient Health Questionnaire-2 Score 0 07/30/2023 Comments Unknown Sex and Gender Information Value [...] documented as of this encounter Care Teams Staff Radiographer Relationship Specialty Start Date End Date Bijal Mejia MD [address] [place] [address] PCP - General Family Medicine 02/16/18 Puma Sorto FNP [address] [place] [address] Nurse Practitioner Family Medicine 01/06/23 documented as of this encounter
--- OUTSIDE RECORDS SUMMARY | 2024-03-09 21:10 | XMS_ITS | Encounter Summary ---
Author Organization [employer] Address [address] [place] [address] [place] [address] Care Team Providers Care Admission Liaison Name Role Phone Bijal Mejia MD Primary Care Provider [phone] Puma Sorto Unavailable Unavailable Reason for Visit * Reason Comments Med Refill Encounter Details Date Type Department Care Team ([facility] st Contact Info) Description 02/27/2024 Refill [facility] [address] [place], [place] [phone] Bijal Mejia MD [address] [place], [place] [phone] Social History Tobacco Use Types Packs/Day Years [...] documented as of this encounter Care Teams Admission Liaison Relationship Specialty Start Date End Date Bijal Mejia MD [address] [place] [address] PCP - General Family Medicine 02/16/18 Puma Sorto FNP [address] [place] [address] Nurse Practitioner Family Medicine 01/06/23 documented as of this encounter
== END ==
LOC: HO.SL 20:30
PROVIDERS: PCP Family Medicine; Visit Provider Family Medicine
DX: Z13.89 Encounter for screening for other disorder (principal)

== ENCOUNTER 2024-03-14 14:03 | Outpatient (REF) | payer OTHER, SELFPAY ==
[2024-03-14 16:25] LABS: MANUAL DIFF FLAG NO
[2024-03-14 16:34] LABS: Basophils Absolute Auto 0.1 X10*3/uL (0.0-0.2); Basophils Percent Auto 0.5 % (0-2); Eosinophils Absolute Auto 0.3 X10*3/uL (0.0-0.4); Hematocrit 34.2 % (37.0-47.0); Hemoglobin 10.2 g/dl (12.0-16.0); Imm Gran Abs Auto 0.03 X10*3/uL (0.00-0.03); Imm Gran Pct Auto 0.3 % (0.0-0.4); Immature Retic Fraction 26.7 % (3.0-15.9); Lymphocytes Percent Auto 29.8 % (20-40); Mean Corpuscular HGB Conc 29.8 g/dl (31.0-35.0); Mean Corpuscular Hemoglobin 23.1 pg (27.0-33.0); Mean Corpuscular Volume 77.4 fL (80.0-98.0); Monocytes Absolute Auto 0.6 X10*3/uL (0.1-1.2); Monocytes Percent Auto 5.7 % (2-11); Neutrophils Absolute Auto 6.2 x10*3/uL (2.0-8.3); Neutrophils Percent Auto 60.7 % (45-73); Platelet Count 388 X10*3/uL (160-400); Red Blood Count 4.42 X10*6/uL (4.20-5.50); Red Cell Distribution Width 17.8 % (11.0-16.0); Retic HGB Equivalent 21.8 pg (30.0-35.0); Reticulocyte Percent 1.6 % (0.5-1.8); Reticulocytes Absolute 0.069 X10*6/uL (0.026-0.095); White Blood Count 10.2 X10*3/uL (4.8-10.8)
--- OUTSIDE RECORDS SUMMARY | 2024-03-14 18:33 | XMS_ITS | Encounter Summary ---
Author Organization [employer] Address [address] [place] [address] 7 [place] [address] Care Team Providers Care Gold Leaf Roller Name Role Phone Bijal Mejia MD Primary Care Provider [phone] Puma Sorto Unavailable Unavailable Encounter Details Date Type Department Care Team (Late st Contact Info) Description 02/02/2023 Orders Only [facility] [address] [place], [place] [phone] Bijal Mejia MD [address] [place], [place] [phone] Anemia, unspecified type (Primary Dx) Social History [...] Vitamin B12 443 200 - 900 pg/mL [facility] Comment:NORMAL 200-900 PG/ML INDETERMINATE 160-199 PG/ML DEFICIENT < 160 PG/ML Folate 8.8 > or = 4.0 ng/mL [facility] Comment:Reference Values:> o r = 4.0 ng/mL< 4.0 ng/mL suggests folate deficiency Methotrexate, aminopterin and folinic acid(leucovorin) are chemotherapeutic agents whose molecularstructures are similar to folate; therefore, the Architectfolate assay cannot be used for patients using these drugs. 02/27/2023 11:5 2 AM EST 02/27/2023 11:52 AM EST us Bijal Mejia MD LAB BLOOD ORDERABLES Final Resul t [facility] [address] [place] [phone] * (ABNORMAL) Iron And Total Iron Binding Capacity (02/27/2023 11:52 AM EST) Iron 45 30 - 160 mcg/dL [facility] Comment:Moderate Hemolysis Total Iron Binding Capacity 325 228 - 428 mcg/dL [facility] Percent Iron Saturation 14(L) 15 - 50 % [facility] Unsaturated Iron Binding 280 ug/dL [facility] Blood Venous blood specimen / Unknown 02/27/2023 11:52 AM EST 02/27/2023 11:52 AM EST us Bijal Mejia MD LAB BLOOD ORDERABLES Final Resul t Performing Organization Address [facility] Co de Phone Number [facility] [address] [place] [phone] * Ferritin (02/27/2023 11:52 AM EST) Ferritin 15 10 - 122 ng/mL [facility] Blood Venous blood specimen / Unknown 02/27/2023 11:52 AM EST 02/27/2023 11:52 AM EST Bijal Mejia MD LAB BLOOD ORDERABLES Final Resul t Performing Organization Address [facility] de Phone Number [facility] [address] [place] [phone] documented in this encounter Visit Diagnoses Diagnosis Anemia, unspecified type- Primary documented in this encounter Additional Health Concerns Assessment Noted Time PHQ-9 Depression Total Score: 3 01/23/20 23 3:38 PM EST documented as of this encounter Care Teams Gold Leaf Roller Relationship Specialty Start Date End Date Bijal Mejia MD [address] [place] [phone] PCP - General Family Medicine 02/16/18 Puma Sorto FNP [address] [place] [address] Nurse Practitioner Family Medicine 01/06/23 documented as of this encounter
--- OUTSIDE RECORDS SUMMARY | 2024-03-14 18:33 | XMS_ITS | Encounter Summary ---
Author Organization [employer] Address [address] [place] [address] Care Team Providers Care Wind Turbine Mechanic Name Role Phone Bijal Mejia MD Primary Care Provider [phone] Puma Sorto Unavailable Unavailable Reason for Visit * Reason Onset Date Comments Appointment Request 04/20/2023 Encounter Details Date Type Department Care Team ([facility] st Contact Info) Description 04/20/2023 Telephone [facility] [address] [place], [place] [phone] Bijal Mejia MD [address] [place], [place] [phone] Appointment Request Social History Tobacco Use Types Packs/Day Years Used Date Smoking Tobacco: Never Smokeless Tobacco: Never Depression Answer Date Recorded Patient Health Questionnaire-9 Score 8 04/16/2023 Patient Health Questionnaire-9 Score 8 04/16/2023 Last PHQ-9: Questionnaire Data Not on file 0 04/16/2023 Housing Stability Answer Date Recorded What is your housing situation today? I have magdaelna arroyo 01/16/[address] you [...] documented as of this encounter Care Teams Wind Turbine Mechanic Relationship Specialty Start Date End Date Bijal Mejia MD [address] [place] [address] PCP - General Family Medicine 02/16/18 Puma Sorto FNP [address] [place] [address] Nurse Practitioner Family Medicine 01/06/23 documented as of this encounter
--- OUTSIDE RECORDS SUMMARY | 2024-03-14 18:33 | XMS_ITS | Encounter Summary ---
Author Organization [employer] Address [address] [place] [address] [place] [address] Care Team Providers Care Aluminum Pool Installer Name Role Phone Bijal Mejia MD Primary Care Provider [phone] Puma Sorto Unavailable Unavailable Encounter Details Date Type Department Care Team (Late st Contact Info) Description 09/05/2022 Orders Only [facility] [address] [place], [place] [phone] Tara Amin LPN Social History Tobacco Use [...] documented as of this encounter Care Teams Aluminum Pool Installer Relationship Specialty Start Date End Date Bijal Mejia MD [address] [place] [address] PCP - General Family Medicine 02/16/18 Puma Sorto FNP [address] [place] [address] Nurse Practitioner Family Medicine 01/06/23 documented as of this encounter
--- OUTSIDE RECORDS SUMMARY | 2024-03-14 18:33 | XMS_ITS | Clinical Summary ---
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 specimen / Unknown 01/28/2024 11:27 AM EST 01/28/2024 1:13 PM EST Bijal Mejia MD LAB BLOOD ORDERABLES Final Resul t Performing Organization Address [facility] Phone Number [facility] [address] [place] [phone] * Ferritin (01/28/2024 11:27 AM EST) Ferritin 11 10 - 122 ng/mL [facility] Blood Venous blood specimen / Unknown 01/28/2024 11:27 AM EST 01/28/2024 1:13 PM EST us Bijal Mejia MD LAB BLOOD ORDERABLES Final Resul t [facility] [address] [place] [address] [phone] * Comprehensive Metabolic Panel (01/28/2024 11:27 AM EST) Sodium 141 135 - 145 mmol/L [facility] Potassium 4.1 3.3 - 5.1 mmol/L [facility] Chloride 107 96 - 108 mmol/L [facility] Carbon Dioxide 25 22 - 29 mmol/L [facility] Anion Gap 13 12 - 20 [facility] Urea Nitrogen (BUN) 12 9 - 16 mg/dL [facility] Creatinine, Serum 0.63 0.5 - 1.4 mg/dL [facility] Estimated Glomerular Filt Rate >60 [facility] Comment:Chronic Kidney Disea se: Estimated GFR < 60 mL/min/[id number] Kidney Disease: Estimated GFR < 15 mL/min/1.73m2 Glucose 100 60 - 115 mg/dL [facility] Calcium 10.0 8.4 - 10.2 mg/dL [facility] Bilirubin, Total 0.2 0.0 - 1.0 mg/dL [facility] Aspartate Amino Transferase 22 5 - 31 U/L [facility] Alanine Aminotransferase 23 0 - 31 U/L [facility] Total Protein 8.0 6.5 - 8.0 g/dL [facility] Albumin Level 4.1 3.5 - 5.0 g/dL [facility] Alkaline Phosphatase 98 39 - 117 U/L [facility] Blood Venous blood specimen / Unknown 01/28/2024 11:27 AM EST 01/28/2024 1:13 PM EST Bijal Mejia MD LAB BLOOD ORDERABLES Final Resul t Performing Organization Address [facility] Co de Phone Number [facility] [address] [place] [phone] * (ABNORMAL) Lipid Panel with Reflex to Direct LDL (01/27/2023 9:58 AM EST) Triglycerides 83 <150 mg/dL [facility] Comment:Desirable Triglyceri de: less than 150 mg/dLBorderline High Triglyceride 150-199 mg/dLHigh Triglyceride: 200-499 mg/dLVery High Triglyceride: greater than or equal to 5OO mg/dL Cholesterol 150 <200 mg/dL [facility] Comment:Desirable Cholestero l: less than 200 mg/dLBorderline High Cholesterol: 200-239 mg/dLHigh Cholesterol: greater than 239 mg/dL LDL Cholesterol Calculated 95 <100 mg/dL [facility] Comment:Desirable LDL: less than 100 mg/dLNear Optimal/Above Optimal LDL: 110- 129 mg/dLBorderline High LDL: 130-159 mg/dLHigh LDL: 160-189 mg/dLVery High LDL: greater than or equal to 190 mg/dL HDL Cholesterol 39(L) >40 mg/dL [facility] Comment:Desirable HDL: great er than 40 mg/dL Note: This HDL assay may give artificially low results in patients with liver disease. Blood 01/27/2023 9:58 AM EST 01/27/2023 11:12 AM EST Bijal Mejia MD LAB BLOOD ORDERABLES Final Resul t Performing Organization Address City/[facility]/ZIP Co de Phone Number [facility] [address] [place] [phone] * HEPATITIS C AB W/REFL TO HCV RNA, QN, PCR (07/18/2021 12:00 AM EDT) HEPATITIS C ANTIBODY NON-REACT RIMMA NON-REACT RIMMA [facility] INDEX 0.05 <1.00 [facility] Comment: ?? HCV antibody was non-reactive. There is no laboratory ?? evidence of HCV infection. ?? In most cases, no further action is required. However, if recent HCV exposure is suspected, a test for HCV RNA (test code 40106) is suggested. ?? For additional information please refer to http://Prizzm.[employer]/faq/QJO71v1 (This link is being provided for informational/ educational purposes only.) ?? 07/18/2021 Bijal Mejia MD HISTORICAL/NON ORDERABLE LABS Fi nal Result [facility] [address] * HIV 1/2 ANTIGEN/ANTIBODY,FOURTH GENERATION W/RFL (07/18/2021 12:00 AM EDT) HIV-1/2 ANTIGEN AND ANTIBODIES, 4TH GENERATION W/ REFLEX NON-REACT RIMMA NON-REACT RIMMA [facility] Comment: HIV-1 antigen and HIV-1/HIV-2 antibodies were not detected. There is no laboratory evidence of HIV infection. ?? PLEASE NOTE: This information has been disclosed to you from records whose confidentiality may be protected by state law. ??If your state requires such protection, then the state law prohibits you from making any further disclosure of the information without the specific written consent of the person to whom it pertains, or as otherwise permitted by law. A general authorization for the release of medical or other information is NOT sufficient for this purpose. ? For additional information please refer to http://Prizzm.[employer]/faq/HBF376 (This link is being provided for informational/ educational purposes only.) ? The performance of this assay has not been clinically validated in patients less than 2 years old. ?? 07/18/2021 us Bijal Mejia MD LAB BLOOD ORDERABLES Final Resul t [facility] [address] from Last 3 Months or Most Recently Relevant to Health Maintenance Insurance [facility] Member Subscriber Plan / Payer (Ef fective 2022-Present) Name:Simran Hadley Relation to Subscriber:Self Name:Simran Hadley Payer ID:Not on file Group ID:[id number] Type:Not on file Address: [address] STANDARD Care Teams Multiple Resaw Operator Relationship Specialty Start Date End Date Bijal Mejia MD [address] [place] [address] PCP - General Family Medicine 02/16/18 Puma Sorto FNP [address] [place] [phone] Nurse Practitioner Family Medicine 01/06/23
--- OUTSIDE RECORDS SUMMARY | 2024-03-14 18:33 | XMS_ITS | Encounter Summary ---
Author Organization [employer] Address [address] [place] [address] 7 [place] [address] Care Team Providers Care Naphthalene Operator Name Role Phone Bijal Mejia MD Primary Care Provider [phone] Puma Sorto Unavailable Unavailable Reason for Visit * Reason Onset Date Comments march recall 03/03/2024 Encounter Details Date Type Department Care Team ([facility] st Contact Info) Description 03/03/2024 Telephone [facility] MEDICINE [address] [place] [address] Nesha Espana [place] march recall Social History [...] documented as of this encounter Care Teams Naphthalene Operator Relationship Specialty Start Date End Date Bijal Mejia MD [address] [place] [address] PCP - General Family Medicine 02/16/18 Puma Sorto FNP [address] [place] [address] Nurse Practitioner Family Medicine 01/06/23 documented as of this encounter
--- OUTSIDE RECORDS SUMMARY | 2024-03-14 18:33 | XMS_ITS | Encounter Summary ---
Author Organization [employer] Address [address] [place] [address] 7 [place] [address] Care Team Providers Care Coremaking Machine Setter Name Role Phone Bijal Mejia MD Primary Care Provider [phone] Puma Sorto Unavailable Unavailable Encounter Details Date Type Department Care Team (Late st Contact Info) Description 09/11/2022 Orders Only [facility] [address] [place], [place] [phone] Zoya Maldonado LPN Social History Tobacco Use [...] documented as of this encounter Care Teams Coremaking Machine Setter Relationship Specialty Start Date End Date Bijal Mejia MD [address] [place] [address] PCP - General Family Medicine 02/16/18 Puma Sorto FNP [address] [place] [address] Nurse Practitioner Family Medicine 01/06/23 documented as of this encounter
--- OUTSIDE RECORDS SUMMARY | 2024-03-14 18:33 | XMS_ITS | Encounter Summary ---
Author Organization [employer] Address [address] [place] [address] [place] [address] Care Team Providers Care Asphalt Mixing Machine Operator Name Role Phone Bijal Mejia MD Primary Care Provider Puma Sorto Unavailable Unavailable Reason for Visit * Reason Onset Date Comments Med Change Request Prior Authorization 01/26/2023 Encounter Details Date Type Department Care Team ([facility] st Contact Info) Description 01/26/2023 Refill [facility] [address] [place], [place] [phone] Bijal Mejia MD [address] [place] [address] Social History Tobacco Use Types Packs/Day Years [...] EST CHACHA req for Asmanex submitted through [facility]; awaiting decision. documented in this encounter Plan of Treatment Not on file documented as of this encounter Visit Diagnoses Not on filedocumented in this encounter Additional Health Concerns Assessment Noted Time PHQ-9 Depression Total Score: 3 01/23/20 23 3:38 PM EST documented as of this encounter Care Teams Asphalt Mixing Machine Operator Relationship Specialty Start Date End Date Bijal Mejia MD [address] [place] [address] PCP - General Family Medicine 02/16/18 Puma Sorto FNP [address] [place] [address] Nurse Practitioner Family Medicine 01/06/23 documented as of this encounter
--- OUTSIDE RECORDS SUMMARY | 2024-03-14 18:33 | XMS_ITS | Encounter Summary ---
Author Organization [employer] Address [address] [place] [address] 7 [place] [address] Care Team Providers Care Correspondence Review Clerk Name Role Phone Bijal Mejia MD Primary Care Provider [phone] Puma Sorto Unavailable Unavailable Reason for Visit * Reason Onset Date Comments lab work 03/10/2024 Encounter Details Date Type Department Care Team ([facility] st Contact Info) Description 03/10/2024 Telephone [facility] MEDICINE [address] [place] [address] Nesha Espana [place] lab work Social History Tobacco Use Types Packs/Day Years [...] Telephone Encounter - Nesha Espana [place] - 03/10/2024 8:20 AM EST Maximo inform pt that she has pending labs .Lab work needs to get done before referral gets done documented in this encounter Plan of Treatment Not on file documented as of this encounter Visit Diagnoses Not on filedocumented in this encounter Additional Health Concerns Assessment Noted Time PHQ-9 Depression Total Score: 7 07/30/19 24 1:24 PM EDT documented as of this encounter Care Teams Correspondence Review Clerk Relationship Specialty Start Date End Date Bijal Mejia MD [address] [place] [address] PCP - General Family Medicine 02/16/18 Puam Sorto FNP [address] [place] [phone] Nurse Practitioner Family Medicine 01/06/23 documented as of this encounter
--- OUTSIDE RECORDS SUMMARY | 2024-03-14 18:33 | XMS_ITS | Encounter Summary ---
Author Organization [employer] Address [address] [place] [address] [place] [address] Care Team Providers Care Economics Department Chair Name Role Phone Bijal Mejia MD Primary Care Provider [phone] Puma Sorto Unavailable Unavailable Reason for Visit * Reason Comments Med Refill Encounter Details Date Type Department Care Team ([facility] st Contact Info) Description 02/27/2024 Refill [facility] MEDICINE [address] [place], [place] [phone] Bijal Mejia MD [address] [place], [place] [phone] Social History Tobacco Use Types Packs/Day Years [...] documented as of this encounter Care Teams Economics Department Chair Relationship Specialty Start Date End Date Bijal Mejia MD [address] [place] [address] PCP - General Family Medicine 02/16/18 Puma Sorto FNP [address] [place] [address] Nurse Practitioner Family Medicine 01/06/23 documented as of this encounter
--- OUTSIDE RECORDS SUMMARY | 2024-03-14 18:33 | XMS_ITS | Encounter Summary ---
Author Organization [employer] Address [address] [facility] 7 [place] [address] Care Team Providers Care Gut Sorter Name Role Phone Bijal Mejia MD Primary Care Provider [phone] Puma Sorto Unavailable Unavailable Encounter Details Date Type Department Care Team (Late st Contact Info) Description 07/29/2023 Orders Only [facility] MEDICINE [address] [place], [place] [phone] Bijal Mejia MD [address] [place], [place] [phone] Social History Tobacco Use Types Packs/Day Years [...] documented as of this encounter Care Teams Gut Sorter Relationship Specialty Start Date End Date Bijal Mejia MD [address] [place] [address] PCP - General Family Medicine 02/16/18 Puma Sorto FNP [address] [place] [address] Nurse Practitioner Family Medicine 01/06/23 documented as of this encounter
--- OUTSIDE RECORDS SUMMARY | 2024-03-14 18:33 | XMS_ITS | Encounter Summary ---
Author Organization [employer] Address [address] [place] [address] [place] [address] Care Team Providers Care Client Support Representative Name Role Phone Bijal Mejia MD Primary Care Provider [phone] Puma Sorto Unavailable Unavailable Reason for Referral * Imaging (Routine) - Closed Specialty Diagnoses / Procedures Referred By Contac t Referred To Contact Radiology Diagnoses Chronic nonintractable headache, unspecified headache type Papilledema Procedures MR Brain w/o Contrast Bijal Mejia MD [address] [place] [address] Phone: tel: fax: [facility] [address] [place] [address] Phone: tel: fax: Referral ID Status Reason Start Date Expiration Date Visits Re quested Visits Authorized [id number] Closed 07/22/2023 07/21/2024 1 1 Encounter Details Date Type Department Care Team (Late st Contact Info) Description 07/22/2023 Orders Only [facility] MED[facility] [address] [place], [place] [phone] Bijal Mejia MD [address] [place], [place] [phone] Anemia, unspecified type (Primary Dx); Chronic nonintractable [...] Vitamin B12 486 200 - 900 pg/mL [facility] Comment:NORMAL 200-900 PG/ML INDETERMINATE 160-199 PG/ML DEFICIENT < 160 PG/ML Folate 4.5 > or = 4.0 ng/mL [facility] Comment:Reference Values:> o r = 4.0 ng/mL< 4.0 ng/mL suggests folate deficiency Methotrexate, aminopterin and folinic acid(leucovorin) are chemotherapeutic agents whose molecularstructures are similar to folate; therefore, the Architectfolate assay cannot be used for patients using these drugs. 07/29/2023 10:4 3 AM EDT 07/29/2023 11:15 AM EDT us Bijal Mejia MD LAB BLOOD ORDERABLES Final Resul t [facility] [address] [place] [phone] * (ABNORMAL) Iron And Total Iron Binding Capacity (07/29/2023 10:43 AM EDT) Iron 24(L) 30 - 160 mcg/dL [facility] Total Iron Binding Capacity 341 228 - 428 mcg/dL [facility] Percent Iron Saturation 7(L) 15 - 50 % [facility] Unsaturated Iron Binding 317 ug/dL [facility] Blood Venous blood specimen / Unknown 07/29/2023 10:43 AM EDT 07/29/2023 11:15 AM EDT us Bijal Mejia MD LAB BLOOD ORDERABLES Final Resul t Performing Organization Address City/[facility]/ZIP Co de Phone Number [facility] [address] [place] [address] [phone] * (ABNORMAL) Ferritin (07/29/2023 10:43 AM EDT) [facility] Ferritin 8(L) 10 - 122 ng/mL [facility] Blood Venous blood specimen / Unknown 07/29/2023 10:43 AM EDT 07/29/2023 11:15 AM EDT Bijal Mejia MD LAB BLOOD ORDERABLES Final Resul t Performing Organization Address [facility] Co de Phone Number [facility] [address] [place] [address] [phone] * (ABNORMAL) CBC auto differential (07/29/2023 10:43 AM EDT) [facility] White Blood Count 12.1(H) 4.8 - 10.8 X10*3/uL [facility] Red Blood Count 4.28 4.20 - 5.50 X10*6/uL [facility] Hemoglobin 9.8(L) 12.0 - 16.0 g/dl [facility] Hematocrit 33.1(L) 37.0 - 47.0 % [facility] Mean Corpuscular Volume 77.3(L) 80.0 - 98.0 fL [facility] Mean Corpuscular Hemoglobin 22.9(L) 27.0 - 33.0 pg [facility] Mean Corpuscular HGB Conc 29.6(L) 31.0 - 35.0 g/dl [facility] Red Cell Distribution Width 18.6(H) 11.0 - 16.0 % [facility] Platelet Count 350 160 - 400 X10*3/uL [facility] Mean Platelet Volume 10.0 9.4 - 12.3 fL [facility] Neutrophils Percent Auto 58.5 45 - 73 % [facility] Imm Gran Pct Auto 0.4 0.0 - 0.4 % [facility] Lymphocytes Percent Auto 29.8 20 - 40 % [facility] Monocytes Percent Auto 6.0 2 - 11 % [facility] Eosinophils Percent Auto 4.7(H) 0 - 4 % [facility] Basophils Percent Auto 0.6 0 - 2 % [facility] NRBC Pct Auto 0.0 0.0 - 0.2 /100WBC [facility] Neutrophils Absolute Auto 7.1 2.0 - 8.3 x10*3/uL [facility] Imm Gran Abs Auto 0.05(H) 0.00 - 0.03 X10*3/uL [facility] Lymphocytes Absolute Auto 3.6 1.2 - 4.9 X10*3/uL [facility] Monocytes Absolute Auto 0.7 0.1 - 1.2 X10*3/uL [facility] Eosinophils Absolute Auto 0.6(H) 0.0 - 0.4 X10*3/uL [facility] Basophils Absolute Auto 0.1 0.0 - 0.2 X10*3/uL [facility] NRBC Abs Auto 0.000 0.0 - 0.012 X10*3/uL [facility] Blood Venous blood specimen / Unknown 07/29/2023 10:43 AM EDT 07/29/2023 11:15 AM EDT us Bijal Mejia MD LAB BLOOD ORDERABLES Final Resul t [facility] [address] [place] [address] [phone] * Comprehensive Metabolic Panel (07/29/2023 10:43 AM EDT) Sodium 139 135 - 145 mmol/L [facility] Potassium 3.7 3.3 - 5.1 mmol/L [facility] Chloride 105 96 - 108 mmol/L [facility] Carbon Dioxide 26 22 - 29 mmol/L [facility] Anion Gap 12 12 - 20 [facility] Urea Nitrogen (BUN) 11 9 - 16 mg/dL [facility] Creatinine, Serum 0.65 0.5 - 1.4 mg/dL [facility] Estimated Glomerular Filt Rate >60 [facility] Comment:NOTE: For -Am erican individuals, multiply the result by 1.210.Chronic Kidney Disease: Estimated GFR < 60 mL/min/1.96s5Upxvms Kidney Disease: Estimated GFR < 15 mL/min/1.73m2 Glucose 102 60 - 115 mg/dL [facility] Calcium 9.5 8.4 - 10.2 mg/dL [facility] Bilirubin, Total 0.3 0.0 - 1.0 mg/dL [facility] Aspartate Amino Transferase 17 5 - 31 U/L [facility] Alanine Aminotransferase 26 0 - 31 U/L [facility] Total Protein 7.9 6.5 - 8.0 g/dL [facility] Albumin Level 3.9 3.5 - 5.0 g/dL [facility] Alkaline Phosphatase 95 39 - 117 U/L [facility] Blood Venous blood specimen / Unknown 07/29/2023 10:43 AM EDT 07/29/2023 11:15 AM EDT Bijal Mejia MD LAB BLOOD ORDERABLES Final Resul t [facility] [address] [place] [phone] * MR Brain w/o Contrast (07/02/2023) [...] documented as of this encounter Care Teams Client Support Representative Relationship Specialty Start Date End Date Bijal Mejia MD [address] [place] [address] PCP - General Family Medicine 02/16/18 Puma Sorto FNP [address] [place] [address] Nurse Practitioner Family Medicine 01/06/23 documented as of this encounter
== END 2024-03-14 14:04 | disposition home or self-care (01) ==
LOC: HO.HHCL 14:03
PROVIDERS: Visit Provider Family Medicine
DX: D64.9 Anemia, unspecified (principal)
CPT/HCPCS: 36415; 85025; 85045

== ENCOUNTER 2024-03-16 08:47 | Day surgery (SDC) | payer OTHER, SELFPAY ==
--- NOTE | ~2024-03-16 | FL_ITS ---
FLUOROSCOPIC LUMBAR PUNCTURE Indication: Idiopathic intracranial hypertension Risks and benefits and possible complications were discussed with the patient and the consent form was signed. Patient was placed prone on the fluoroscopy table. The back was prepped and draped in routine sterile fashion. Betadine was used as a skin antiseptic. Utilizing fluoroscopic guidance, the L2-3 interlaminar space was accessed with a 22 gauge quinkie spinal needle and clear CSF fluid obtained. Opening pressure was 34 cm H2O. 12 cc of fluid was sent for analysis. The needle was removed without immediate complications. Total fluoroscopy time: 0.7 minutes FL/FL guided lumbar puncture LP Impression: Successful fluoroscopic guided lumbar puncture at L2-L3. Opening pressure was 34 cm H2O. This procedure was performed by Nahid Fernandez PA-C and supervised by Dr. Cheng. Electronically signed by: Lionel Cheng MD 03/17/2024 05:01 PM RUBEN
--- OUTSIDE RECORDS SUMMARY | 2024-03-16 09:40 | XMS_ITS | Encounter Summary ---
Author Organization [email or web address] Address [address] [place] [address] 7 [place] [address] Care Team Providers Care Relations Manager Name Role Phone Bijal Mejia MD Primary Care Provider [phone] Puma Sorto Unavailable Unavailable Reason for Visit * Reason Onset Date Comments lab work 03/10/2024 Encounter Details Date Type Department Care Team ([facility] st Contact Info) Description 03/10/2024 Telephone [facility] MEDICINE [address] [place] [address] Nesha Espana [place] lab work Social History [...] documented as of this encounter Care Teams Relations Manager Relationship Specialty Start Date End Date Bijal Mejia MD [address] [place] [address] PCP - General Family Medicine 02/16/18 Puma Sorto FNP [address] [place] [phone] Nurse Practitioner Family Medicine 01/06/23 documented as of this encounter
--- OUTSIDE RECORDS SUMMARY | 2024-03-16 09:41 | XMS_ITS | Encounter Summary ---
Author Organization [facility] Address [address] [place] [address] [place] [address] Care Team Providers Care Patient Financial Specialist Name Role Phone Bijal Mejia MD Primary Care Provider [phone] Puma Sorto Unavailable Unavailable Reason for Referral * Imaging (Routine) - Closed Specialty Diagnoses / Procedures Referred By Contac t Referred To Contact Radiology Diagnoses Chronic nonintractable headache, unspecified headache type Papilledema Procedures MR Brain w/o Contrast Bijal Mejia MD [address] [place] [address] Phone: tel: fax: [facility] [address] [place] [address] Phone: tel: fax: Referral ID Status Reason Start Date Expiration Date Visits Re quested Visits Authorized [id number] Closed 07/22/2023 07/21/2024 1 1 Encounter Details Date Type Department Care Team (Late st Contact Info) Description 07/22/2023 Orders Only [facility] [address] [place], [place] [phone] Bijal Mejia MD [address] [place], [place] [phone] Anemia, unspecified type (Primary Dx); Chronic nonintractable [...] Vitamin B12 486 200 - 900 pg/mL [facility] Comment:NORMAL 200-900 PG/ML INDETERMINATE 160-199 PG/ML DEFICIENT < 160 PG/ML Folate 4.5 > or = 4.0 ng/mL [facility] Comment:Reference Values:> o r = 4.0 ng/mL< 4.0 ng/mL suggests folate deficiency Methotrexate, aminopterin and folinic acid(leucovorin) are chemotherapeutic agents whose molecularstructures are similar to folate; therefore, the Architectfolate assay cannot be used for patients using these drugs. 07/29/2023 10:4 3 AM EDT 07/29/2023 11:15 AM EDT us Bijal Mejia MD LAB BLOOD ORDERABLES Final Resul t [facility] [address] [place] [phone] * (ABNORMAL) Iron And Total Iron Binding Capacity (07/29/2023 10:43 AM EDT) Iron 24(L) 30 - 160 mcg/dL [facility] Total Iron Binding Capacity 341 228 - 428 mcg/dL [facility] Percent Iron Saturation 7(L) 15 - 50 % [facility] Unsaturated Iron Binding 317 ug/dL [facility] Blood Venous blood specimen / Unknown 07/29/2023 10:43 AM EDT 07/29/2023 11:15 AM EDT us Bijal Mejia MD LAB BLOOD ORDERABLES Final Resul t Performing Organization Address City/[facility]/ZIP Co de Phone Number [facility] [address] [place] [phone] * (ABNORMAL) Ferritin (07/29/2023 10:43 AM EDT) [facility] Ferritin 8(L) 10 - 122 ng/mL [facility] Blood Venous blood specimen / Unknown 07/29/2023 10:43 AM EDT 07/29/2023 11:15 AM EDT Bijal Mejia MD LAB BLOOD ORDERABLES Final Resul t Performing Organization Address [facility] Co de Phone Number [facility] [address] [place] [address] [phone] * (ABNORMAL) CBC auto differential (07/29/2023 10:43 AM EDT) [facility] White Blood Count 12.1(H) 4.8 - 10.8 X10*3/uL [facility] Red Blood Count 4.28 4.20 - 5.50 X10*6/uL [facility] Hemoglobin 9.8(L) 12.0 - 16.0 g/dl [facility] Hematocrit 33.1(L) 37.0 - 47.0 % [facility] Mean Corpuscular Volume 77.3(L) 80.0 - 98.0 fL [facility] Mean Corpuscular Hemoglobin 22.9(L) 27.0 - 33.0 pg [facility] Mean Corpuscular HGB Conc 29.6(L) 31.0 - 35.0 g/dl [facility] Red Cell Distribution Width 18.6(H) 11.0 - 16.0 % [facility] Platelet Count 350 160 - 400 X10*3/uL [facility] Mean Platelet Volume 10.0 9.4 - 12.3 fL [facility] Neutrophils Percent Auto 58.5 45 - 73 % [facility] Imm Gran Pct Auto 0.4 0.0 - 0.4 % [facility] Lymphocytes Percent Auto 29.8 20 - 40 % [facility] Monocytes Percent Auto 6.0 2 - 11 % [facility] Eosinophils Percent Auto 4.7(H) 0 - 4 % [facility] Basophils Percent Auto 0.6 0 - 2 % [facility] NRBC Pct Auto 0.0 0.0 - 0.2 /100WBC [facility] Neutrophils Absolute Auto 7.1 2.0 - 8.3 x10*3/uL [facility] Imm Gran Abs Auto 0.05(H) 0.00 - 0.03 X10*3/uL [facility] Lymphocytes Absolute Auto 3.6 1.2 - 4.9 X10*3/uL [facility] Monocytes Absolute Auto 0.7 0.1 - 1.2 X10*3/uL [facility] Eosinophils Absolute Auto 0.6(H) 0.0 - 0.4 X10*3/uL [facility] Basophils Absolute Auto 0.1 0.0 - 0.2 X10*3/uL [facility] NRBC Abs Auto 0.000 0.0 - 0.012 X10*3/uL [facility] Blood Venous blood specimen / Unknown 07/29/2023 10:43 AM EDT 07/29/2023 11:15 AM EDT us Bijal Mejia MD LAB BLOOD ORDERABLES Final Resul t [facility] [address] [place] [phone] * Comprehensive Metabolic Panel (07/29/2023 10:43 AM EDT) Sodium 139 135 - 145 mmol/L [facility] Potassium 3.7 3.3 - 5.1 mmol/L [facility] Chloride 105 96 - 108 mmol/L [facility] Carbon Dioxide 26 22 - 29 mmol/L [facility] Anion Gap 12 12 - 20 [facility] Urea Nitrogen (BUN) 11 9 - 16 mg/dL [facility] Creatinine, Serum 0.65 0.5 - 1.4 mg/dL [facility] Estimated Glomerular Filt Rate >60 [facility] Comment:NOTE: For -Am erican individuals, multiply the result by 1.210.Chronic Kidney Disease: Estimated GFR < 60 mL/min/[id number] Kidney Disease: Estimated GFR < 15 mL/min/1.73m2 Glucose 102 60 - 115 mg/dL [facility] Calcium 9.5 8.4 - 10.2 mg/dL [facility] Bilirubin, Total 0.3 0.0 - 1.0 mg/dL [facility] Aspartate Amino Transferase 17 5 - 31 U/L [facility] Alanine Aminotransferase 26 0 - 31 U/L [facility] Total Protein 7.9 6.5 - 8.0 g/dL [facility] Albumin Level 3.9 3.5 - 5.0 g/dL [facility] Alkaline Phosphatase 95 39 - 117 U/L [facility] Blood Venous blood specimen / Unknown 07/29/2023 10:43 AM EDT 07/29/2023 11:15 AM EDT Bijal Mejia MD LAB BLOOD ORDERABLES Final Resul t [facility] [address] [place] [phone] * MR Brain w/o Contrast (07/02/2023) [...] documented as of this encounter Care Teams Patient Financial Specialist Relationship Specialty Start Date End Date Bijal Mejia MD [address] [place] [address] PCP - General Family Medicine 02/16/18 Puma Sorto FNP [address] [place] [address] Nurse Practitioner Family Medicine 01/06/23 documented as of this encounter
--- OUTSIDE RECORDS SUMMARY | 2024-03-16 09:41 | XMS_ITS | Encounter Summary ---
Author Organization [facility] Address [address] [place] [address] 7 [place] [address] Care Team Providers Care Doll Wig Hackler Name Role Phone Bijal Mejia MD Primary Care Provider [phone] Puma Sorto Unavailable Unavailable Reason for Visit * Reason Onset Date Comments march recall 03/03/2024 Encounter Details Date Type Department Care Team ([facility] st Contact Info) Description 03/03/2024 Telephone [facility] [address] [place] [address] Nesha Espana [place] march recall Social History [...] documented as of this encounter Care Teams Doll Wig Hackler Relationship Specialty Start Date End Date Bijal Mejia MD [address] [place] [address] PCP - General Family Medicine 02/16/18 Puma Sorto FNP [address] [place] [address] Nurse Practitioner Family Medicine 01/06/23 documented as of this encounter
--- OUTSIDE RECORDS SUMMARY | 2024-03-16 09:41 | XMS_ITS | Encounter Summary ---
Author Organization [employer] Address [address] [place] [address] [place] [address] Care Team Providers Care Mail Processing Equipment Mechanic Name Role Phone Bijal Mejia MD Primary Care Provider [phone] Puma Sorto Unavailable Unavailable Reason for Visit * Reason Onset Date Comments Med Change Request Prior Authorization 01/26/2023 Encounter Details Date Type Department Care Team ([facility] st Contact Info) Description 01/26/2023 Refill [facility] [address] [place], [place] [phone] Bijal Mejia MD [address] [place] [address] Social History Tobacco Use Types Packs/Day Years [...] EST CHACHA req for Asmanex submitted through [facility]; awaiting decision. documented in this encounter Plan of Treatment Not on file documented as of this encounter Visit Diagnoses Not on filedocumented in this encounter Additional Health Concerns Assessment Noted Time PHQ-9 Depression Total Score: 3 01/23/20 23 3:38 PM EST documented as of this encounter Care Teams Mail Processing Equipment Mechanic Relationship Specialty Start Date End Date Bijal Mejia MD [address] [place] [address] PCP - General Family Medicine 02/16/18 Puma Sorto FNP [address] [place] [address] Nurse Practitioner Family Medicine 01/06/23 documented as of this encounter
--- OUTSIDE RECORDS SUMMARY | 2024-03-16 09:41 | XMS_ITS | Encounter Summary ---
Author Organization [employer] Address [address] [place] [address] [place] [address] Care Team Providers Care Instructor Decorating Name Role Phone Bijal Mejia MD Primary Care Provider [phone] Puma Sorto Unavailable Unavailable Encounter Details Date Type Department Care Team (Late st Contact Info) Description 09/05/2022 Orders Only [facility] [address] [place], [place] [phone] Tara Amin LPN Social History Tobacco Use [...] documented as of this encounter Care Teams Instructor Decorating Relationship Specialty Start Date End Date Bijal Mejia MD [address] [place] [address] PCP - General Family Medicine 02/16/18 Puma Sorto FNP [address] [place] [address] Nurse Practitioner Family Medicine 01/06/23 documented as of this encounter
--- OUTSIDE RECORDS SUMMARY | 2024-03-16 09:41 | XMS_ITS | Encounter Summary ---
Author Organization [employer] [facility] Address [address] [place] [address] 7 [place] [address] Care Team Providers Care Florist'S Decorator Name Role Phone Bijal Mejia MD Primary Care Provider [phone] Puma Sorto Unavailable Unavailable Encounter Details Date Type Department Care Team (Late st Contact Info) Description 09/11/[address] [facility] [address] [place], [place] [phone] Zoya Maldonado LPN Social History Tobacco Use [...] documented as of this encounter Care Teams Florist'S Decorator Relationship Specialty Start Date End Date Bijal Mejia MD [address] [place] [address] PCP - General Family Medicine 02/16/18 Puma Sorto FNP [address] [place] [address] Nurse Practitioner Family Medicine 01/06/23 documented as of this encounter
--- OUTSIDE RECORDS SUMMARY | 2024-03-16 09:41 | XMS_ITS | Encounter Summary ---
Author Organization [employer] Address [address] [place] [address] [place] [address] Care Team Providers Care Aed Trainer Name Role Phone Bijal Mejia MD Primary Care Provider [phone] Puma Sorto Unavailable Unavailable Reason for Visit * Reason Comments Med Refill Encounter Details Date Type Department Care Team ([facility] st Contact Info) Description 02/27/2024 Refill [facility] [address] [place], [place] [phone] Bijal Mejia MD [address] [place], [place] [phone] Social History Tobacco Use Types Packs/Day Years [...] documented as of this encounter Care Teams Aed Trainer Relationship Specialty Start Date End Date Bijal Mejia MD [address] [place] [address] PCP - General Family Medicine 02/16/18 Puma Sorto FNP [address] [place] [address] Nurse Practitioner Family Medicine 01/06/23 documented as of this encounter
--- OUTSIDE RECORDS SUMMARY | 2024-03-16 09:41 | XMS_ITS | Encounter Summary ---
Author Organization [employer] Address [address] [facility] 7 [place] [address] Care Team Providers Care Dip Painter Name Role Phone Bijal Mejia MD Primary Care Provider [phone] Puma Sorto Unavailable Unavailable Encounter Details Date Type Department Care Team (Late st Contact Info) Description 07/29/2023 Orders Only [facility] [address] [place], [place] [phone] Bijal Mejia MD [address] [place], [place] [phone] Social History Tobacco Use Types Packs/Day Years [...] documented as of this encounter Care Teams Dip Painter Relationship Specialty Start Date End Date Bijal Mejia MD [address] [place] [address] PCP - General Family Medicine 02/16/18 Puma Sorto FNP [address] [place] [address] Nurse Practitioner Family Medicine 01/06/23 documented as of this encounter
--- OUTSIDE RECORDS SUMMARY | 2024-03-16 09:41 | XMS_ITS | Encounter Summary ---
Author Organization [employer] Address [address] [place] [address] Care Team Providers Care Tripe Washer Name Role Phone Bijal Mejia MD Primary Care Provider [phone] Puma Sorto Unavailable Unavailable Reason for Visit * Reason Onset Date Comments Appointment Request 04/20/2023 Encounter Details Date Type Department Care Team ([facility] st Contact Info) Description 04/20/2023 Telephone [facility] [address] [place], [place] [phone] Bijal Mejia MD [address] [place], [place] [phone] Appointment Request Social History Tobacco Use Types [...] documented as of this encounter Care Teams Tripe Washer Relationship Specialty Start Date End Date Bijal Mejia MD [address] [place] [address] PCP - General Family Medicine 02/16/18 Puma Sorto FNP [address] [place] [address] Nurse Practitioner Family Medicine 01/06/23 documented as of this encounter
--- OUTSIDE RECORDS SUMMARY | 2024-03-16 09:41 | XMS_ITS | Encounter Summary ---
Author Organization [employer] Address [address] [place] [address] 7 [place] [address] Care Team Providers Care Auto Service Mechanic Name Role Phone Bijal Mejia MD Primary Care Provider [phone] Puma Sorto Unavailable Unavailable Encounter Details Date Type Department Care Team (Late st Contact Info) Description 02/02/2023 Orders Only [facility] [address] [place], [place] [phone] Bijal Mejia MD [address] [place], [place] [phone] Anemia, unspecified type (Primary Dx) Social History [...] Vitamin B12 443 200 - 900 pg/mL [facility] Comment:NORMAL 200-900 PG/ML INDETERMINATE 160-199 PG/ML DEFICIENT < 160 PG/ML Folate 8.8 > or = 4.0 ng/mL [facility] Comment:Reference Values:> o r = 4.0 ng/mL< 4.0 ng/mL suggests folate deficiency Methotrexate, aminopterin and folinic acid(leucovorin) are chemotherapeutic agents whose molecularstructures are similar to folate; therefore, the Architectfolate assay cannot be used for patients using these drugs. 02/27/2023 11:5 2 AM EST 02/27/2023 11:52 AM EST us Bijal Mejia MD LAB BLOOD ORDERABLES Final Resul t [facility] [address] [place] [phone] * (ABNORMAL) Iron And Total Iron Binding Capacity (02/27/2023 11:52 AM EST) Iron 45 30 - 160 mcg/dL [facility] Comment:Moderate Hemolysis Total Iron Binding Capacity 325 228 - 428 mcg/dL [facility] Percent Iron Saturation 14(L) 15 - 50 % [facility] Unsaturated Iron Binding 280 ug/dL [facility] Blood Venous blood specimen / Unknown 02/27/2023 11:52 AM EST 02/27/2023 11:52 AM EST us Bijal Mejia MD LAB BLOOD ORDERABLES Final Resul t Performing Organization Address [facility] Co de Phone Number [facility] [address] [place] [phone] * Ferritin (02/27/2023 11:52 AM EST) Ferritin 15 10 - 122 ng/mL [facility] Blood Venous blood specimen / Unknown 02/27/2023 11:52 AM EST 02/27/2023 11:52 AM EST Bijal Mejia MD LAB BLOOD ORDERABLES Final Resul t Performing Organization Address [facility] de Phone Number [facility] [address] [place] [phone] documented in this encounter Visit Diagnoses Diagnosis Anemia, unspecified type- Primary documented in this encounter Additional Health Concerns Assessment Noted Time PHQ-9 Depression Total Score: 3 01/23/20 23 3:38 PM EST documented as of this encounter Care Teams Auto Service Mechanic Relationship Specialty Start Date End Date Bijal Mejia MD [address] [place] [address] PCP - General Family Medicine 02/16/18 Puma Sorto FNP [address] [place] [address] Nurse Practitioner Family Medicine 01/06/23 documented as of this encounter
--- OUTSIDE RECORDS SUMMARY | 2024-03-16 09:41 | XMS_ITS | Clinical Summary ---
Author Organization [employer] Address [address] [place] [address] 7 [place] [address] Care Team Providers Care Palliative Senior Np Name Role Phone Bijal Mejia MD Primary Care Provider [phone] Puma Sorto Unavailable Unavailable Allergies Active Allergy [...] EST): - Chronic headache - Dr. Hines, tool room attendant, examined her and patient had papilledema in July 2023 - MRI ion 08/02/23 was normal (done at [facility]) - Evaluated by neurologist, Dr. Trimble, [...] PM EST): - evaluated by Dr. Waller, [facility] general surgery on 01/11/24 - internal and external hemorrhoids, not bulky - continue hydrocortisone cream and/or suppository - recommended to optimize treatment for constipation - continue fiber supplement - restart docusate sodium - continue improving diet Papilledema of both eyes 11/11/2023 Assessment & Plan (01/28/2024 5:55 PM EST): - MRI normal in July 2023 - Following with [facility] Eye care Assessment & Plan (11/11/2023 10:17 [...] retiring, patient will be transferred to new [facility] prescriber. She is aware that this clinician will not be an employee of [facility] and gives permission to share PHI. All [...] & Plan (01/27/2023 11:28 AM EST): - [facility] provider: Puma and [facility] clinician - most likely Bipolar Type II - Continue Aripiprazole 20 mg daily. (Puma has been entertaining an alternative that is metabolically-neutral medication such as Latuda and Geodon). - Continue Clonidine 0.1 mg at bedtime or BID - Pt is not taking Buspirone 30 mg prn - follow up with [facility] providers as scheduled Assessment & [...] Type Department Care Team Description 03/10/2024 Telephone [facility] [place] [address] Nesha Espana [place] lab work 03/03/2024 Telephone [facility] [place] [address] Nesha Espana [place] march02/27/2024 Refill [facility] [address] Bijal Mejia MD 01/30/2024 Refill [facility] [place] [address] Bijal Mejia MD 01/28/2024 10:30 AM EST Office Visit [facility] [place] [address] Bijal Mejia MD Chronic nonintractable headache, unspecified headache type (Primary Dx); Moderate persistent asthma without complication; Hemorrhoids, unspecified hemorrhoid type; Elevated blood pressure reading in office without diagnosis of hypertension; Hypothyroidism, unspecified type; Class 3 severe obesity due to excess calories with serious comorbidity and body mass index (BMI) of 50.0 to 59.9 in adult ([facility]); Anemia, unspecified type; Eczema, unspecified type; Mood disorder ([facility]); Allergic rhinitis, unspecified seasonality, unspecified trigger; Routine general medical examination at a health care facility; Dietary counseling; Exercise counseling; Papilledema of both eyes; Gastroesophageal reflux disease, unspecified whether esophagitis present; Constipation, unspecified constipation type; Irregular periods; Intracranial hypertension; Bilateral hand numbness; Sleep disturbance; Dysmenorrhea 01/28/2024 Travel 01/27/2024 Telephone [facility] [place] [address] Nesha Espana [place] chart prep 12/23/2023 Telephone [facility] [address] [place] [address] Hilaria Dc MD 12/17/2023 1:00 PM EDT Office Visit [facility] [address] [place] [address] Hilaria Dc MD Hemorrhoids, unspecified hemorrhoid type (Primary Dx) 12/17/2023 Travel 12/16/2023 Telephone [facility] [address] [place] [address] Bijal Mejia MD Nurse Triage from Last [...] 5 Years) and At-Risk Patients (6 to 49) Years) Completed 01/26/2023 COVID-19 Vaccine Completed 11/11/2023, [...] Blood Count 10.2 4.8 - 10.8 X10*3/uL [facility] Red Blood Count 4.42 4.20 - 5.50 X10*6/uL [facility] Hemoglobin 10.2(L) 12.0 - 16.0 g/dl [facility] Hematocrit 34.2(L) 37.0 - 47.0 % [facility] Mean Corpuscular Volume 77.4(L) 80.0 - 98.0 fL [facility] Mean Corpuscular Hemoglobin 23.1(L) 27.0 - 33.0 pg [facility] Mean Corpuscular HGB Conc 29.8(L) 31.0 - 35.0 g/dl [facility] Red Cell Distribution Width 17.8(H) 11.0 - 16.0 % [facility] Platelet Count 388 160 - 400 X10*3/uL [facility] Mean Platelet Volume 10.0 9.4 - 12.3 fL [facility] Neutrophils Percent Auto 60.7 45 - 73 % [facility] Imm Gran Pct Auto 0.3 0.0 - 0.4 % [facility] Lymphocytes Percent Auto 29.8 20 - 40 % [facility] Monocytes Percent Auto 5.7 2 - 11 % [facility] Eosinophils Percent Auto 3.0 0 - 4 % [facility] Basophils Percent Auto 0.5 0 - 2 % [facility] NRBC Pct Auto 0.0 0.0 - 0.2 /100WBC [facility] Neutrophils Absolute Auto 6.2 2.0 - 8.3 x10*3/uL [facility] Imm Gran Abs Auto 0.03 0.00 - 0.03 X10*3/uL [facility] Lymphocytes Absolute Auto 3.0 1.2 - 4.9 X10*3/uL [facility] Monocytes Absolute Auto 0.6 0.1 - 1.2 X10*3/uL [facility] Eosinophils Absolute Auto 0.3 0.0 - 0.4 X10*3/uL [facility] Basophils Absolute Auto 0.1 0.0 - 0.2 X10*3/uL [facility] NRBC Abs Auto 0.000 0.0 - 0.012 X10*3/uL [facility] Blood Venous blood specimen / Unknown 03/14/2024 2:05 PM EST 03/14/2024 4:20 PM EST Bijal Mejia MD LAB BLOOD ORDERABLES Final Resul t Performing Organization Address [facility] de Phone Number [facility] [address] [place] [phone] * (ABNORMAL) Reticulocyte Count (03/14/2024 2:05 PM EST) Pathologist [facility] Reticulocytes Absolute 0.069 0.026 - 0.095 X10*6/uL [facility] Immature Retic Fraction 26.7(H) 3.0 - 15.9 % [facility] Retic HGB Equivalent 21.8(L) 30.0 - 35.0 pg [facility] Reticulocyte Percent 1.6 0.5 - 1.8 % [facility] Blood Venous blood specimen / Unknown 03/14/2024 2:05 PM EST 03/14/2024 4:20 PM EST Bijal Mejia MD LAB BLOOD ORDERABLES Final Resul t Performing Organization Address [facility] de Phone Number [facility] [address] [place] [phone] * Vitamin B12 (Cobalamin) and Folate Panel, Serum (01/28/2024 11:27 AM EST) Pathologist [facility] Vitamin B12 537 200 - 900 pg/mL [facility] Comment:NORMAL 200-900 PG/M L INDETERMINATE 160-199 PG/ML DEFICIENT < 160 PG/ML Folate 10.3 > or = 4.0 ng/mL [facility] Comment:Reference Values:> o r = 4.0 ng/mL< 4.0 ng/mL suggests folate deficiency Methotrexate, aminopterin and folinic acid(leucovorin) are chemotherapeutic agents whose molecularstructures are similar to folate; therefore, the Architectfolate assay cannot be used for patients using these drugs. Blood 01/28/2024 11:2 7 AM EST 01/28/2024 1:13 PM EST Bijal Mejia MD LAB BLOOD ORDERABLES Final Resul t Performing Organization Address [facility] de Phone Number [facility] [address] [place] [phone] * TSH with Reflex to Free T4 (01/28/2024 11:27 AM EST) TSH reflex Free T4 0.60 0.32 - 4.0 uIU/mL [facility] Blood 01/28/2024 11:2 7 AM EST 01/28/2024 1:13 PM EST Bijal Mejia MD LAB BLOOD ORDERABLES Final Resul t Performing Organization Address [facility] Phone Number [facility] [address] [place] [phone] * (ABNORMAL) Iron And Total Iron Binding Capacity (01/28/2024 11:27 AM EST) Iron 18(L) 30 - 160 mcg/dL [facility] Total Iron Binding Capacity 352 228 - 428 mcg/dL [facility] Percent Iron Saturation 5(L) 15 - 50 % [facility] Unsaturated Iron Binding 334 ug/dL [facility] Blood Venous blood specimen / Unknown 01/28/2024 11:27 AM EST 01/28/2024 1:13 PM EST Bijal Mejia MD LAB BLOOD ORDERABLES Final Resul t Performing Organization Address [facility] Co in Phone Number [facility] [address] [place] [address] [place] [phone] * Ferritin (01/28/2024 11:27 AM EST) Ferritin 11 10 - 122 ng/mL [facility] Blood Venous blood specimen / Unknown 01/28/2024 11:27 AM EST 01/28/2024 1:13 PM EST us Bijal Mejia MD LAB BLOOD ORDERABLES Final Resul t [facility] [address] [place] [phone] * Comprehensive Metabolic Panel (01/28/2024 11:27 AM EST) Sodium 141 135 - 145 mmol/L [facility] Potassium 4.1 3.3 - 5.1 mmol/L [facility] Chloride 107 96 - 108 mmol/L [facility] Carbon Dioxide 25 22 - 29 mmol/L [facility] Anion Gap 13 12 - 20 [facility] Urea Nitrogen (BUN) 12 9 - 16 mg/dL [facility] Creatinine, Serum 0.63 0.5 - 1.4 mg/dL [facility] Estimated Glomerular Filt Rate >60 [facility] Comment:Chronic Kidney Disea se: Estimated GFR < 60 mL/min/[id number] Kidney Disease: Estimated GFR < 15 mL/min/1.73m2 Glucose 100 60 - 115 mg/dL [facility] Calcium 10.0 8.4 - 10.2 mg/dL [facility] Bilirubin, Total 0.2 0.0 - 1.0 mg/dL [facility] Aspartate Amino Transferase 22 5 - 31 U/L [facility] Alanine Aminotransferase 23 0 - 31 U/L [facility] Total Protein 8.0 6.5 - 8.0 g/dL [facility] Albumin Level 4.1 3.5 - 5.0 g/dL [facility] Alkaline Phosphatase 98 39 - 117 U/L [facility] Blood Venous blood specimen / Unknown 01/28/2024 11:27 AM EST 01/28/2024 1:13 PM EST Bijal Mejia MD LAB BLOOD ORDERABLES Final Resul t Performing Organization Address [facility] Co de Phone Number [facility] [address] [place] [phone] * (ABNORMAL) Lipid Panel with Reflex to Direct LDL (01/27/2023 9:58 AM EST) Triglycerides 83 <150 mg/dL [facility] Comment:Desirable Triglyceri de: less than 150 mg/dLBorderline High Triglyceride 150-199 mg/dLHigh Triglyceride: 200-499 mg/dLVery High Triglyceride: greater than or equal to 5OO mg/dL Cholesterol 150 <200 mg/dL [facility] Comment:Desirable Cholestero l: less than 200 mg/dLBorderline High Cholesterol: 200-239 mg/dLHigh Cholesterol: greater than 239 mg/dL LDL Cholesterol Calculated 95 <100 mg/dL [facility] Comment:Desirable LDL: less than 100 mg/dLNear Optimal/Above Optimal LDL: 110- 129 mg/dLBorderline High LDL: 130-159 mg/dLHigh LDL: 160-189 mg/dLVery High LDL: greater than or equal to 190 mg/dL HDL Cholesterol 39(L) >40 mg/dL [facility] Comment:Desirable HDL: great er than 40 mg/dL Note: This HDL assay may give artificially low results in patients with liver disease. Blood 01/27/2023 9:58 AM EST 01/27/2023 11:12 AM EST us Bijal Mejia MD LAB BLOOD ORDERABLES Final Resul t Performing Organization Address [facility]/ZIP Co de Phone Number [facility] [address] [place] [phone] * HEPATITIS C AB W/REFL TO HCV RNA, QN, PCR (07/18/2021 12:00 AM EDT) HEPATITIS C ANTIBODY NON-REACT [facility] NON-REACT [facility] INDEX 0.05 <1.00 [facility] Comment: ?? HCV antibody was non-reactive. There is no laboratory ?? evidence of HCV infection. ?? In most cases, no further action is required. However, if recent HCV exposure is suspected, a test for HCV RNA (test code 99868) is suggested. ?? For additional information please refer to http://[employer] [facility]/faq/JDP53l8 (This link is being provided for informational/ educational purposes only.) ?? 07/18/2021 Bijal Mejia MD HISTORICAL/NON ORDERABLE LABS Fi nal Result [facility] [address] * HIV 1/2 ANTIGEN/ANTIBODY,FOURTH GENERATION W/RFL (07/18/2021 12:00 AM EDT) HIV-1/2 ANTIGEN AND ANTIBODIES, 4TH GENERATION W/ REFLEX NON-REACT [facility] NON-REACT [facility] Comment: HIV-1 antigen and HIV-1/HIV-2 [...] ? For additional information please refer to http://[employer] [facility]/faq/OLJ390 (This link is being provided for informational/ educational purposes only.) ? The performance of this assay has not been clinically validated in patients less than 2 years old. ?? 07/18/2021 us Bijal Mejia MD LAB BLOOD ORDERABLES Final Resul t [facility] [address] from Last 3 Months or Most Recently Relevant to Health Maintenance Insurance [facility] Member Subscriber Plan / Payer (Ef fective 2022-Present) Name:Simran Hadley Relation to Subscriber:Self Name:Simran Hadley Payer ID:Not on file Group ID:[id number] Type:Not on file Address: [address] STANDARD Care Teams Palliative Senior Np Relationship Specialty Start Date End Date Bijal Mejia MD [address] [place], [place] [phone] PCP - General Family Medicine 02/16/18 Puma Sorto FNP [address] [place] [phone] Nurse Practitioner Family Medicine 01/06/23
[2024-03-16 09:48] VITALS: BMI 51.0
[2024-03-16 10:01] VITALS: BP 135/84; PULSE 87; RESP 15; TEMP 36.7; O2SAT 97
[2024-03-16 10:11] LABS: UPreg QC Valid YES; Urine Pregnancy NEGATIVE (NEGATIVE)
[2024-03-16 11:55] VITALS: BP 106/67; PULSE 74; RESP 18; TEMP 36.9; O2SAT 98
[2024-03-16 12:10] VITALS: BP 104/64; PULSE 72; RESP 18; O2SAT 98
[2024-03-16 12:25] VITALS: BP 106/73; PULSE 68; RESP 18; O2SAT 98
[2024-03-16 12:40] VITALS: BP 118/76; PULSE 74; RESP 18; TEMP 36.6; O2SAT 98
[2024-03-16 13:08] LABS: Glucose CSF 65 mg/dL; Total Protein CSF 23.9 mg/dL (15-45)
[2024-03-16 13:17] LABS: Oligoclonal Serum Yes
[2024-03-16 14:57] LABS: Appearance CSF CLEAR; CSF Tube # 4; Color CSF COLORLESS; Lymphocytes CSF 100 %; Red Blood Cell CSF 0 MM*3; White Blood Cell CSF 1 MM*3
[2024-03-16 15:45] LABS: CSF Appearance Clear, Colorless; CSF Tube # 1
[2024-03-18 21:58] LABS: Albumin 3.9 g/dL (3.6-5.1); Albumin, CSF 10.9 mg/dL (8.0-42.0); IgG 1500 mg/dL (600-1640); IgG Synthesis Rate -4.3 mg/24 h (-9.9-3.3); IgG, CSF 2.2 mg/dL (0.8-7.7)
[2024-03-22 12:03] LABS: Oligoclonal Banding Absent (Absent)
== END 2024-03-16 12:49 | disposition home or self-care (01) ==
PROVIDERS: Physician Assistant Surgical; PCP Family Medicine; Visit Provider Psychiatry & Neurology Neurology
PROC: 009U3ZZ Drainage of Spinal Canal, Percutaneous Approach (ICD-10-PCS; CPT 62270; principal; 2024-03-16 11:00)
DX: G93.2 Benign intracranial hypertension (principal); H47.10 Unspecified papilledema; E66.01 Morbid (severe) obesity due to excess calories; Z68.42 Body mass index [BMI] 45.0-49.9, adult; F31.9 Bipolar disorder, unspecified; E03.9 Hypothyroidism, unspecified; K21.9 Gastro-esophageal reflux disease without esophagitis; Z79.899 Other long term (current) drug therapy; Z88.2 Allergy status to sulfonamides
CPT/HCPCS: 62328; 81025; 82042; 82945; 83916; 84157; 87015; 87070; 87205; 89051; J2003

== ENCOUNTER → 2024-03-16 11:20 | Outpatient (BNV) | payer OTHER, SELFPAY | PROVIDERS: PCP Family Medicine; Visit Provider Physician Assistant Surgical | DX: G93.2 Benign intracranial hypertension (principal) | CPT/HCPCS: 62328 ==

== ENCOUNTER 2024-05-10 13:02 | Outpatient (REF) | payer OTHER, SELFPAY ==
[2024-05-10 18:33] LABS: CT PCR NOT DETECTED (Not Detect.); NG PCR NOT DETECTED (Not Detect.)
[2024-05-13 14:55] LABS: HPV Genotype 16 Negative (Negative); HPV High Risk Negative (Negative)
[2024-05-13 14:56] LABS: HPV Genotype 18 Negative (Negative)
== END 2024-05-10 13:03 | disposition home or self-care (01) ==
LOC: HO.LNP 13:02
PROVIDERS: PCP Family Medicine; Visit Provider Obstetrics & Gynecology
DX: Z12.4 Encounter for screening for malignant neoplasm of cervix (principal); Z11.51 Encounter for screening for human papillomavirus (HPV); N93.9 Abnormal uterine and vaginal bleeding, unspecified
CPT/HCPCS: 87491; 87591; 87626; 88175; 99202

== ENCOUNTER 2024-05-10 13:02 | Outpatient (AMB) | payer OTHER, SELFPAY ==
--- NOTE | 2024-05-10 13:20 | MHC.OFFVIS ---
Vital Signs 05/10/24 13:32 Height 5 ft 1 in Weight 265 lb BMI 50.1 BP 136/72 Intake Visit Reasons: AUB/Anemia per Social Work Therapist: Social Work Therapist Present (Michela) Accompanied by: Self / Same As Patient Allergies sulfamethoxazole [From BACTRIM] Allergy (Mild, Verified 05/10/24 13:28) LIVER PROBLEMS trimethoprim [From BACTRIM] Allergy (Mild, Verified 05/10/24 13:28) LIVER PROBLEMS Is last menstrual period known: Yes Last menstrual period: 04/29/24 Post menopausal: No Patient : No HPI Comments Details: Presenting complaining of heavy menstrual cycles associated with passage of blood clots and pelvic cramping no associated hair growth or nipple discharge or any other complaints No recent Pap smear [facility] Medical History (Updated 05/10/24 @ 13:45 by Joe Pimentel MD) Intracranial hypertension Bipolar disease, chronic Thyroid disease GERD (gastroesophageal reflux disease) Asthma Anxiety Hemorrhoids with complication Surgical History No pertinent past surgical history Social History Household Members: Family Alcohol intake: current Alcohol intake frequency: holidays/special occasions only Patient Tobacco Use Status: Never used Tobacco service: No Current occupational status: student Female Reproductive History Menstrual Age of Menarche: 10 Duration of menses: 3-5 days Date of last menstrual period: 04/29/24 Total pregnancies: 0 Review of Systems Const All systems reviewed & are unremarkable except as noted in HPI and below Card Reports as per HPI Resp Reports as per HPI GI Reports as per HPI and Reports no additional complaints Reports as per HPI Physical Exam Chest Chest palpation & inspection: normal inspection of the chest and normal palpation of entire chest wall Breast/axilla inspection: normal inspection of the breasts and normal inspection of the axillae Breast/axilla palpation: normal palpation of the breasts, normal palpation of the axillae and no axillary lymphadenopathy General: Yes bladder normal to palpation External Female Exam: No lesion Speculum Exam - Vagina: normal appearance of the vagina, normal palpation, normal vaginal discharge and not erythematous Speculum Exam - Cervix: normal appearance of the cervix and normal palpation Bimanual exam- vagina & uterus: normal bimanual exam, normal palpation, uterine size normal, bladder normal to palpation, consistency normal and normal palpation Bimanual Exam- Adnexa, other: normal adnexae, no masses and no tenderness Assessment & Plan Assessment & Plan (1) Abnormal uterine bleeding (AUB): Comment: History of intracranial hypertension Code(s): N93.9 - Abnormal uterine and vaginal bleeding, unspecified Category: Medical Plan: Pap smear taken, GC and chlamydia taken CBC, TSH, HCG, and pelvic ultrasound ordered. Discussed with the patient the different causes of abnormal bleeding including thyroid disorders, uterine and ovarian pathology and others. Discussed with the patient the work up including CBC (to r/o anemia), TSH, pelvic Ultrasound. All questions answered and the patient verbalized understanding. Instructed the patient to schedule a follow up appointment in 2 weeks. Orders: Orders HCG Quantitative Today N93.9 - Abnormal uterine and vaginal bleeding, unspecified US pelvic and transvaginal Today N93.9 - Abnormal uterine and vaginal bleeding, unspecified TSH reflex Free T4 Today N93.9 - Abnormal uterine and vaginal bleeding, unspecified Complete Blood Count no Diff Today N93.9 - Abnormal uterine and vaginal bleeding, unspecified Coding Level of Care Code New Pt Level 3 (66319) Diagnoses Abnormal uterine bleeding (AUB) N93.9
[2024-05-10 13:32] VITALS: BP 136/72; BMI 50.1
--- OUTSIDE RECORDS SUMMARY | 2024-05-10 15:51 | XMS_ITS | Encounter Summary ---
Author Organization [employer] Address [address] [place] [address] [place] [address] Care Team Providers Care Special Education Superintendent Name Role Phone Bijal Mejia MD Primary Care Provider [phone] Puma Sorto Unavailable Unavailable Reason for Visit * Reason Onset Date Comments Med Refill 04/25/2024 Encounter Details Date Type Department Care Team (Late st Contact Info) Description 04/25/2024 Refill [facility] [address] [place], [place] [phone] Bijal Mejia MD [address] [place] [address] Social History Tobacco Use Types Packs/Day Years [...] as of this encounter Plan of Treatment Upcoming Encounters Date Type Department Care Team (Late st Contact Info) Description 05/16/2024 3:45 PM EDT Office Visit [facility] [address] [place] [phone] Bijal Mejia MD [address] [place] [phone] documented as of this encounter Visit Diagnoses Not on filedocumented in this encounter Additional Health Concerns Assessment Noted Time PHQ-9 Depression Total Score: 7 07/30/19 24 1:24 PM EDT documented as of this encounter Care Teams Special Education Superintendent Relationship Specialty Start Date End Date Bijal Mejia MD [address] [place] [phone] PCP - General Family Medicine 02/16/18 Puma Sorto FNP [address] [place] [phone] Nurse Practitioner Family Medicine 01/06/23 documented as of this encounter
--- OUTSIDE RECORDS SUMMARY | 2024-05-10 15:51 | XMS_ITS | Encounter Summary ---
Author Organization [employer] Address [address] [place] [address] [place] [address] Care Team Providers Care Bindery Operator Name Role Phone Bijal Mejia MD Primary Care Provider [phone] Puma Sorto Unavailable Unavailable Reason for Visit * Reason Comments Pre-visit Planning SDOH Screening negat milo and Tobacco screening negative Encounter Details Date Type Department Care Team ([facility] st Contact Info) Description 05/09/2024 Patient Outreach [facility] [address] [place], [place] [phone] Bijal Mejia MD [address] [place] [address] Pre-visit Planning (SDOH Screening negative and Tobacco screening negative) Social History Tobacco Use Types Packs/Day Years [...] shut off services in your home? No 05/09/2024 Depression Answer Date Recorded Patient Health Questionnaire-2 [...] PM EDT documented as of this encounter Progress Notes * Magy Montanez - 05/09/2024 10:20 AM EDT TERA Tong placed successful outbound call to patient for pre-visit planning. Patient name and confirmed. Patient confirms appt date and time, and has transportation arrangements. Biggest concern for appointment at this time is her weight. Patient advised to bring to appointment a photo id and insurance card. Appropriate screenings completed in anticipation of appointment. documented in this encounter Plan of Treatment Upcoming Encounters Date Type Department Care Team (Late st Contact Info) Description 05/16/2024 3:45 PM EDT Office Visit [facility] [address] [place] [address] Bijal Mejia MD [address] [place] [address] documented as of this encounter Visit Diagnoses Not on filedocumented in this encounter Additional Health Concerns Assessment Noted Time PHQ-9 Depression Total Score: 7 07/30/19 24 1:24 PM EDT documented as of this encounter Care Teams Bindery Operator Relationship Specialty Start Date End Date Bijal Mejia MD [address] [place] [address] PCP - General Family Medicine 02/16/18 Puma Sorto FNP [address] [place] [address] Nurse Practitioner Family Medicine 01/06/23 documented as of this encounter
--- OUTSIDE RECORDS SUMMARY | 2024-05-10 15:51 | XMS_ITS | Clinical Summary ---
Author Organization [employer] Address [address] [place] [address] 7 [place] [address] Care Team Providers Care Music Manager Name Role Phone Bijal Mejia MD Primary Care Provider [phone] Puma Sorto Unavailable Unavailable Allergies Active Allergy [...] USE. 13 g 3 12/03/19 24 Active hydrocortisone (Anusol-HC) 2.5 % rectal [...] in the morning and at bedtime for constipation . 60 capsule 5 01/28/20 24 Active loratadine [...] HEARTBURN 90 capsule 3 02/28/19 25 Active ondansetron (Zofran) 4 MG tablet Take 1 tablet (4 mg) by mouth every 8 (eight) hours if needed for nausea or vomiting for up to 27 days. 20 tablet 3 04/23/19 25 025 Active albuterol 108 (90 Base) MCG/ACT inhaler INHALE 2 PUFFS BY MOUTH EVERY 4 HOURS IF NEEDED FOR WHEEZING OR SHORTNESS OF BREATH. MAXIMUM 8 PUFFS PER DAY. 18 g 3 04/26/19 25 Active simethicone (Mylicon,Gas-X) 180 MG capsule Take 1 capsule (180 mg) by mouth if needed in the morning, at noon, and at bedtime for flatulence. 90 capsule 1 04/26/19 25 Active albuterol 108 (90 Base) MCG/ACT inhaler INHALE 2 PUFFS BY MOUTH EVERY 4 HOURS IF NEEDED FOR WHEEZING OR SHORTNESS OF BREATH. MAXIMUM 8 PUFFS PER DAY. 18 g 3 12/03/19 24 025 Discontinued(Re order (will not trigger notification to Pharmacy)) simethicone (Mylicon,Gas-X) 180 MG capsule Take 1 capsule (180 mg) by mouth if needed in the morning, at noon, and at bedtime for flatulence. 90 capsule 1 12/04/19 24 025 Discontinued(Re order (will not trigger notification to Pharmacy)) Active Problems Problem Noted Date Diagnosed Date Intracranial hypertension 01/28/2024 Assessment & Plan (01/28/2024 5:51 PM EST): - Chronic headache - Dr. Hines, room manager, examined her and patient had papilledema in July 2023 - MRI ion 08/02/23 was normal (done at [facility]) - Evaluated by neurologist, Dr. Trimble, [...] PM EST): - evaluated by Dr. Waller, [facility] general surgery on 01/11/24 - internal and external hemorrhoids, not bulky - continue hydrocortisone cream and/or suppository - recommended to optimize treatment for constipation - continue fiber supplement - restart docusate sodium - continue improving diet Papilledema of both eyes 11/11/2023 Assessment & Plan (01/28/2024 5:55 PM EST): - MRI normal in July 2023 - Following with [facility] Eye care Assessment & Plan (11/11/2023 10:17 AM EDT): Saw Ophthalmology on 07/22/23, had Optic Nerve Study showing Papilledema. Advised to refer to Neurology and obtain MR. MR Brain on 08/02/23 IMPRESSION: Unremarkable MR Brain without contrast. Referred to Neurology 11/11/23 to evaluate for possible normal pressure hydrocephalus. Chronic nonintractable headache 11/11/2023 Assessment & Plan (04/27/2024 9:15 AM EDT): Her main concern around the headaches is having nausea with them and not being controlled by Tylenol. - likely she would be able to have acetazolamide for IIH. - for now, trial Excedrin migraine and Zofran for relief (scripts sent) - continue working on diet and exercise for sustainable weight loss as well. Assessment & Plan (01/28/2024 5:55 PM EST): [...] retiring, patient will be transferred to new [facility] prescriber. She is aware that this clinician will not be an employee of [facility] and gives permission to share PHI. All [...] & Plan (01/27/2023 11:28 AM EST): - [facility] provider: [facility] clinician - most likely Bipolar Type II - Continue Aripiprazole 20 mg daily. (Puma has been entertaining an alternative that is metabolically-neutral medication such as Latuda and Geodon). - Continue Clonidine 0.1 mg at bedtime or BID - Pt is not taking Buspirone 30 mg prn - follow up with [facility] providers as scheduled Assessment & Plan (01/22/2023 [...] Encounters Date Type Department Care Team Description 05/09/2024 Patient Outreach [facility] [address] [place] [phone] Bijal Mejia MD Pre-visit Planning (SDOH Screening negative and Tobacco screening negative) 04/25/2024 Refill [facility] [address] [place], [place] [phone] Bijal Mejia MD 04/25/2024 Refill [facility] [address] [place], [place] [phone] Bijal Mejia MD 04/22/2024 3:15 PM EST Office Visit [facility] [address] [place] [phone] Briana Galeas MD Chronic nonintractable headache, unspecified headache type (Primary Dx); Papilledema of both eyes 04/22/2024 Travel 03/16/2024 Orders Only GENERIC EXTERNAL DATA DEPARTMENT Provider, Generic External Data 03/10/[address] [address] Nesha Espana [place] lab work 03/03/[address] [address] Nesha Espana [place] march02/27/2024 Refill [facility] [address] [place] [address] Bijal Mejia MD from Last 3 Months Immunizations Name Administration [...] Sign Reading Time Taken Comments Blood Pressure 127/75 04/22/2024 3:13 PM EST Pulse 84 04/22/2024 3:13 PM EST Temperature 36 ??C (96.8 ??F) 04/22/2024 3:13 PM EST Respiratory Rate 18 04/22/2024 3:13 PM EST Oxygen Saturation 98% 01/28/2024 10:36 AM EST Inhaled Oxygen Concentration - - Weight 121 kg (266 lb 9.6 oz) 04/22/2024 3:13 PM EST Height 154.9 cm (5' 1 ) 04/22/2024 3:13 PM EST Body Mass Index 50.37 04/22/2024 3:13 PM EST Plan of Treatment Upcoming Encounters Date Type Department Care Team (Late st Contact Info) Description 05/16/2024 3:45 PM EDT Office Visit [facility] [address], [place] [phone] Bijal Mejia MD [address], [place] [phone] Health Maintenance Due Date Last Done Comments Family Planning (PISQ) 2010 Pap Smear 2016 Depression Screening 07/29/2024 07/30/2023, 07/30/19 Alcohol/Substance Use Screening 01/27/2025 01/28/2024 Tobacco Screening 04/27/2025 04/27/2024 SDOH Screening 05/09/2025 05/09/2024 Lipid Panel 01/28/2028 01/27/2023, 07/18/2021 DTaP/Tdap/Td Vaccines (7 - Td or Tdap) 07/07/2028 07/07/2018, 04/27/2008, 11/03/1996, Additional history exists Zoster Vaccines (1 of 2) 2045 RSV Patients and Patients Aged 60 years or older (1 - 1-dose 75+ series) 2070 Hepatitis B Vaccines Completed 1995, 1995, 1995 HIB Vaccines Completed 07/05/1996, 06/1995, 1995, Additional history exists IPV Vaccines Completed 07/05/1996, 06/1995, 1995, Additional history exists HPV Vaccines Completed 04/27/2009, 07/02/2008, 04/27/2008 Meningococcal Vaccine Completed 11/19/2012, 009 Hepatitis [...] Procedure Name Priority Date/Time Associated Diagnosis Comments OLIGOCLONAL BANDING Routine 03/16/2024 1 1:30 AM EST IGG SYNTHESIS RATE/INDEX, CSF Routine 03/16/2024 11:30 AM EST CSF CELL COUNT WITH DIFFERENTIAL Routine 03/16/2024 11:30 AM EST TOTAL PROTEIN CSF Routine 03/16/2024 11: 30 AM EST GLUCOSE, CSF Routine 03/16/2024 11:30 AM EST GRAM STAIN Routine 03/16/2024 11:30 AM EST FL GUIDED LUMBAR PUNCTURE LP Routine 03/16/2024 11:20 AM EST HCG, QL, URINE Routine 03/16/2024 9:45 AM EST RETICULOCYTE COUNT Routine 03/14/2024 2: 05 PM EST Anemia, unspecified type CBC WITH AUTO DIFFERENTIAL Routine 03/14/2024 2:05 PM EST Anemia, unspecified type LIPID PANEL WITH REFLEX TO [...] Recently Relevant to Health Maintenance Results * Total Protein CSF (03/16/2024 11:30 AM EST) Total Protein CSF 23.9 15 - 45 mg/dL [facility] 03/16/2024 11:3 0 AM EST 03/16/2024 12:36 PM EST us Generic External Data Provider LAB BODY FLUIDS A ND STOOLS ORDERABLES Final Result [facility] [address] [place] [phone] * Oligoclonal banding (03/16/2024 11:30 AM EST) Oligoclonal Bands (IgG), CSF Absent Absent [facility] Comment: GREATER THAN FIVE identical (mirror image) gammarestriction bands are observed in the patient's CSFand serum sample. This finding is indicative ofsystemic rather than intra-cerebral synthesis ofgamma globulins. The results should be interpreted inconjunction with all clinical and laboratory datapertaining to this patient.Oligoclonal bands are present in the CSF of more than85% of patients with clinically definite multiplesclerosis (MS). To distinguish between oligoclonalbands in the CSF due to a peripheral gammopathy andoligoclonal bands due to local production in the COSTUME TECHNICIAN,serum and CSF should be tested simultaneously.Oligoclonal bands can however be observed in a varietyof other diseases, e.g., subacute sclerosing panen-cephalitis, inflammatory polyneuropathy, COSTUME TECHNICIAN lupus,and brain tumors and infarctions. The clinicalsignificance of a numerical band count, determinedby isoelectric focusing, has not been definitivelydefined. The data should be interpreted in conjunctionwith all pertinent clinical and laboratory data forthis patient.THIS TEST WAS PERFORMED AT:[facility] [place], [place] ??[address]HEATHER HELLER MD,PHD 03/16/2024 11:3 0 AM EST 03/16/2024 12:36 PM EST us Generic External Data Provider LAB BLOOD ORDERAB LES Final Result [facility] [address] [place] [phone] * IgG Synthesis Rate/Index, CSF (03/16/2024 11:30 AM EST) Albumin 3.9 3.6 - 5.1 g/dL [facility] Comment:THIS TEST WAS PERFOR MED AT:[facility] [place] [phone] HELLER MD,PHD Immunoglobulin G 1500 600 - 1640 mg/dL [facility] IgG, CSF 2.2 0.8 - 7.7 mg/dL [facility] Albumin, CSF 10.9 8.0 - 42.0 mg/dL [facility] IgG Index, CSF 0.52 <0.70 [facility] Comment:The IgG Synthesis ra te, CSF and IgG index, CSF are twoformulae for estimating the amount of IgG produced inthe central nervous system. Evidence of increasedsynthesis of IgG provides support for the diagnosis ofmultiple sclerosis. Synthesis Rate IgG, CSF -4.3 -9.9 - 3.3 mg/24 h [facility] 03/16/2024 11:3 0 AM EST 03/16/2024 12:36 PM EST us Generic External Data Provider LAB BODY FLUIDS A ND STOOLS ORDERABLES Final Result Performing Organization Address [facility] de Phone Number [facility] [address] [place] [phone] * Gram stain (03/16/2024 11:30 AM EST) 03/16/2024 11:3 0 AM EST 03/16/2024 12:36 PM EST Comment:CSF Narrative [facility] - 03/19/2024 8:00 AM EST TUBE #3 Gram stain results: No polys No organisms seen TUBE #3 CSF Volume CSF volume mL CSF Volume 3 TUBE #3 Appearance Appearance Appearance Clear Appearance COLORLESS TUBE #3 CSF Culture No growth after 3 days. Specimen Source: Cerebrospinal Fluid Generic External Data Provider LAB MICROBIOLOGY - GENERAL ORDERABLES Final Result Performing Organization Address [facility] de Phone Number [facility] [address] [place] [phone] * CSF cell count with differential (03/16/2024 11:30 AM EST) Appearance CSF CLEAR [facility] CSF Tube Number 4 [facility] CSF Volume 3.0 ML [facility] CSF Color COLORLESS [facility] CSF White Blood Cell 1 MM*3 [facility] Comment:Body Fluid WBC is a total nucleated cell count.When a differential is performed, the specimen isconcentrated by cytocentrifugation. This sometimes resultsin the number of cells in the differential being greaterthan the actual cell count performed on thenon-concentrated specimen. CSF Red Blood Cell 0 MM*3 [facility] Comment:The reference interv al(s) and other method performancespecifications are unavailable for this body fluid.Comparison of the result with concentration in the blood,serum, or plasma is recommended. LYMPHOCYTES %, CSF 100 % [facility] 03/16/2024 11:3 0 AM EST 03/16/2024 12:36 PM EST us Generic External Data Provider LAB BODY FLUIDS A ND STOOLS ORDERABLES Final Result Performing Organization Address [facility] de Phone Number [facility] [address] [place] [phone] * Glucose, CSF (03/16/2024 11:30 AM EST) CSF Appearance Clear, Colorless [facility] CSF Tube Number 1 [facility] Glucose CSF 65 mg/dL [facility] 03/16/2024 11:3 0 AM EST 03/16/2024 12:36 PM EST us Generic External Data Provider LAB BODY FLUIDS A ND STOOLS ORDERABLES Final Result Performing Organization Address [facility] de Phone Number [facility] [address] [place] [phone] * FL guided lumbar puncture LP (03/16/2024 11:20 AM EST) Anatomical Region Laterality Modality Abdomen Radiographic Jordyn ging 03/16/2024 11:2 0 AM EST Narrative 03/17/2024 5:04 PM EST ? [facility] ?[address] ?[place] [address] ? Fluoroscopy Report ? Signed ? Patient: Leonie,Simran ?MR#: [id number] ?? 2 ? : 1995 ?Acct:[id number] ? Age/Sex: 28 / F ?ADM Date: 03/16/24 ? Loc: HO.SSS ? Attending Dr: Robert Trimble MD ? Ordering Physician: Robert Trimble MD ?? Date of Service: 01/29/25 ?? Procedure(s): FL guided lumbar puncture LP ?? Accession Number(s): [id number] ? cc: Robert Trimble MD; Bijal Mejia MD ? FLUOROSCOPIC LUMBAR PUNCTURE ? Indication: Idiopathic intracranial hypertension ? Risks and benefits and possible complications were discussed with the ?? patient and the consent form was signed. Patient was placed prone on ?? the fluoroscopy table. The back was prepped and draped in routine ?? sterile fashion. Betadine was used as a skin antiseptic. Utilizing ?? fluoroscopic guidance, the L2-3 interlaminar space was accessed with a ?? 22 gauge quinkie spinal needle and clear CSF fluid obtained. Opening ?? pressure was 34 cm H2O. ??12 cc of fluid was sent for analysis. The ?? needle was removed without immediate complications. ? Total fluoroscopy time: 0.7 minutes ? FL/FL guided lumbar puncture LP ?? Impression: Successful fluoroscopic guided lumbar puncture at L2-L3. ?? Opening pressure was 34 cm H2O. ? This procedure was performed by Nahid Fernandez PA-C and supervised by ?? Prosper. ? Electronically signed by: ??Lionel Cheng MD ??03/17/2024 05:01 PM EST RP ? Dictated By: ?Nahid Fernandez ? Signed By: ?<Electronically signed by Nahid Fernandez in OV> ? 03/17/24 1701 ?<Electronically signed by Lionel Cheng MD in OV> ? 03/17/24 1704 ? DD/ 1120 ? TD/TT: 03/16/24 1150 ? Steam Turbine Operator: ? Procedure Note Donblake, Image - 03/17/2024 [place] [address] Fluoroscopy Report Signed Patient: Sabrina Hadley#: [id number] 2 : 1995Acct:[id number] Age/Sex: 28 / FADM Date: 03/16/24 Loc: [facility] Attending Dr: Robert Trimble MD Ordering Physician: Robert Trimble MD Date of Service: 03/16/24 Procedure(s): FL guided lumbar puncture LP Accession Number(s): [id number] cc: Robert Trimble MD; Bijal eMjia MD FLUOROSCOPIC LUMBAR PUNCTURE Indication: Idiopathic intracranial hypertension Risks and benefits and possible complications were discussed with the patient and the consent form was signed. Patient was placed prone on the fluoroscopy table. The back was prepped and draped in routine sterile fashion. Betadine was used as a skin antiseptic. Utilizing fluoroscopic guidance, the L2-3 interlaminar space was accessed with a 22 gauge quinkie spinal needle and clear CSF fluid obtained. Opening pressure was 34 cm H2O. 12 cc of fluid was sent for analysis. The needle was removed without immediate complications. Total fluoroscopy time: 0.7 minutes FL/FL guided lumbar puncture LP Impression: Successful fluoroscopic guided lumbar puncture at L2-L3. Opening pressure was 34 cm H2O. This procedure was performed by Nahid Fernandez PA-C and supervised by Dr. Cheng. Electronically signed by: Lionel Cheng MD 03/17/2024 05:01 PM EST RP Dictated By: Nahid Fernandez Signed By: <Electronically signed by Nahid Fernandez in OV> 03/17/24 1701 <Electronically signed by Lionel Cheng MD in OV> 03/17/24 1704 DD/ 1120 TD/TT: 03/16/24 1150 Steam Turbine Operator: [facility] External Provider IMG FLU OROSCOPY PROCEDURES Final Result * HCG, Qualitative, Urine (03/16/2024 9:45 AM EST) Urine NEGATIVE NEGATIVE [facility] Comment:This test was develo ped to detect early . Falsenegative results may occur after the 5th - 7th week ofpregnancy when using this test method. If clinicallyindicated, consider a serum hCG. 03/16/2024 9:45 AM EST 03/16/2024 10:06 AM EST Generic External Data Provider LAB URINE ORDERAB LES Final Result [facility] [address] [place] [phone] * (ABNORMAL) CBC auto differential (03/14/2024 2:05 PM EST) White Blood Count 10.2 4.8 - 10.8 X10*3/uL [facility] Red Blood Count 4.42 4.20 - 5.50 X10*6/uL [facility] Hemoglobin 10.2(L) 12.0 - 16.0 g/dl [facility] Hematocrit 34.2(L) 37.0 - 47.0 % [facility] Mean Corpuscular Volume 77.4(L) 80.0 - 98.0 fL [facility] Mean Corpuscular Hemoglobin 23.1(L) 27.0 - 33.0 pg [facility] Mean Corpuscular HGB Conc 29.8(L) 31.0 - 35.0 g/dl [facility] Red Cell Distribution Width 17.8(H) 11.0 - 16.0 % [facility] Platelet Count 388 160 - 400 X10*3/uL [facility] Mean Platelet Volume 10.0 9.4 - 12.3 fL [facility] Neutrophils Percent Auto 60.7 45 - 73 % [facility] Imm Gran Pct Auto 0.3 0.0 - 0.4 % [facility] Lymphocytes Percent Auto 29.8 20 - 40 % [facility] Monocytes Percent Auto 5.7 2 - 11 % [facility] Eosinophils Percent Auto 3.0 0 - 4 % [facility] Basophils Percent Auto 0.5 0 - 2 % [facility] NRBC Pct Auto 0.0 0.0 - 0.2 /100WBC [facility] Neutrophils Absolute Auto 6.2 2.0 - 8.3 x10*3/uL [facility] Imm Gran Abs Auto 0.03 0.00 - 0.03 X10*3/uL [facility] Lymphocytes Absolute Auto 3.0 1.2 - 4.9 X10*3/uL [facility] Monocytes Absolute Auto 0.6 0.1 - 1.2 X10*3/uL [facility] Eosinophils Absolute Auto 0.3 0.0 - 0.4 X10*3/uL [facility] Basophils Absolute Auto 0.1 0.0 - 0.2 X10*3/uL [facility] NRBC Abs Auto 0.000 0.0 - 0.012 X10*3/uL [facility] Blood Venous blood specimen / Unknown 03/14/2024 2:05 PM EST 03/14/2024 4:20 PM EST Bijal Mejia MD LAB BLOOD ORDERABLES Final Resul t Performing Organization Address [facility] de Phone Number [facility] [address] [place] [phone] * (ABNORMAL) Reticulocyte Count (03/14/2024 2:05 PM EST) Reticulocytes Absolute 0.069 0.026 - 0.095 X10*6/uL [facility] Immature Retic Fraction 26.7(H) 3.0 - 15.9 % [facility] Retic HGB Equivalent 21.8(L) 30.0 - 35.0 pg [facility] Reticulocyte Percent 1.6 0.5 - 1.8 % [facility] Blood Venous blood specimen / Unknown 03/14/2024 2:05 PM EST 03/14/2024 4:20 PM EST Bijal Mejia MD LAB BLOOD ORDERABLES Final Resul t Performing Organization Address [facility] Co nv Phone Number [facility] [address] [place] [phone] * (ABNORMAL) Lipid Panel with Reflex to Direct LDL (01/27/2023 9:58 AM EST) Triglycerides 83 <150 mg/dL [facility] Comment:Desirable Triglyceri de: less than 150 mg/dLBorderline High Triglyceride 150-199 mg/dLHigh Triglyceride: 200-499 mg/dLVery High Triglyceride: greater than or equal to 5OO mg/dL Cholesterol 150 <200 mg/dL [facility] Comment:Desirable Cholestero l: less than 200 mg/dLBorderline High Cholesterol: 200-239 mg/dLHigh Cholesterol: greater than 239 mg/dL LDL Cholesterol Calculated 95 <100 mg/dL [facility] Comment:Desirable LDL: less than 100 mg/dLNear Optimal/Above Optimal LDL: 110- 129 mg/dLBorderline High LDL: 130-159 mg/dLHigh LDL: 160-189 mg/dLVery High LDL: greater than or equal to 190 mg/dL HDL Cholesterol 39(L) >40 mg/dL [facility] Comment:Desirable HDL: great er than 40 mg/dL Note: This HDL assay may give artificially low results in patients with liver disease. Blood 01/27/2023 9:58 AM EST 01/27/2023 11:12 AM EST us Bijal Mejia MD LAB BLOOD ORDERABLES Final Resul t [facility] [address] [place] [phone] * HEPATITIS C AB W/REFL TO HCV RNA, QN, PCR (07/18/2021 12:00 AM EDT) HEPATITIS C ANTIBODY NON-REACT [facility] NON-REACT [facility] INDEX 0.05 <1.00 [facility] Comment: ?? HCV antibody was non-reactive. There is no laboratory ?? evidence of HCV infection. ?? In most cases, no further action is required. However, if recent HCV exposure is suspected, a test for HCV RNA (test code 49299) is suggested. ?? For additional information please refer to http://education.[employer]/faq/IRL30v4 (This link is being provided for informational/ educational purposes only.) ?? 07/18/2021 us Bijal Mejia MD HISTORICAL/NON ORDERABLE LABS Fi nal Result [facility] [address] * HIV 1/2 ANTIGEN/ANTIBODY,FOURTH GENERATION W/RFL (07/18/2021 12:00 AM EDT) HIV-1/2 ANTIGEN AND ANTIBODIES, 4TH GENERATION W/ REFLEX NON-REACT [facility] NON-REACT [facility] Comment: HIV-1 antigen and HIV-1/HIV-2 [...] ? For additional information please refer to http://education.[employer]/faq/MXE602 (This link is being provided for informational/ educational purposes only.) ? The performance of this assay has not been clinically validated in patients less than 2 years old. ?? 07/18/2021 us Bijal Mejia MD LAB BLOOD ORDERABLES Final Resul t [facility] [address] from Last 3 Months or Most Recently Relevant to Health Maintenance Insurance [facility] Member Subscriber Plan / Payer (Ef fective 2022-Present) Name:Simran Hadley Relation to Subscriber:Self Name:Simran Hadley Payer ID:Not on file Group ID:[id number] Type:Not on file Address: [address] STANDARD Care Teams Music Manager Relationship Specialty Start Date End Date Bijal Mejia MD [address] [place] [address] PCP - General Family Medicine 02/16/18 Puma Sorto FNP [address] [place] [address] Nurse Practitioner Family Medicine 01/06/23
--- OUTSIDE RECORDS SUMMARY | 2024-05-10 15:51 | XMS_ITS | Encounter Summary ---
Author Organization [employer] Address [address] [place] [address] 7 [place] [address] Care Team Providers Care Customs Compliance Director Name Role Phone Bijal Mejia MD Primary Care Provider [phone] Puma Sorto Unavailable Unavailable Encounter Details Date Type Department Care Team (Latest Contact Info) Description 04/22/2024 Travel Social History Tobacco Use Types Packs/Day Years [...] t he electric, gas, oil or water [employer] threatened to shut off services in your [...] Description 05/16/2024 3:45 PM EDT Office Visit [facility] [address] [place] [address] Bijal Mejia MD [address] [place] [address] documented as of this encounter Visit Diagnoses Not on filedocumented in this encounter Additional Health Concerns Assessment Noted Time PHQ-9 Depression Total Score: 7 07/30/19 24 1:24 PM EDT documented as of this encounter Care Teams Customs Compliance Director Relationship Specialty Start Date End Date Bijal Mejia MD [address] [place] [address] PCP - General Family Medicine 02/16/18 Puma Sorto FNP [address] [place] [address] Nurse Practitioner Family Medicine 01/06/23 documented as of this encounter
--- OUTSIDE RECORDS SUMMARY | 2024-05-10 15:51 | XMS_ITS | Encounter Summary ---
Author Organization [employer] Address [address] [place] [address] Care Team Providers Care Offset Pressman Name Role Phone Bijal Mejia MD Primary Care Provider [phone] Puma Sorto Unavailable Unavailable Reason for Visit * Reason Onset Date Comments Appointment Request 04/20/2023 Encounter Details Date Type Department Care Team ([facility] st Contact Info) Description 04/20/2023 Telephone [facility] [address] [place], [place] [phone] Bijal Mejia MD [address] [place], [place] [phone] Appointment Request Social History Tobacco Use Types [...] Description 05/16/2024 3:45 PM EDT Office Visit [facility] [address] [place] [phone] Bijal Mejia MD [address] [place] [address] documented as of this encounter Visit Diagnoses Not on filedocumented in this encounter Additional Health Concerns Assessment Noted Time PHQ-9 Depression Total Score: 8 04/16/19 24 2:34 PM EST documented as of this encounter Care Teams Offset Pressman Relationship Specialty Start Date End Date Bijal Mejia MD [address] [place] [address] PCP - General Family Medicine 02/16/18 Puma Sorto FNP [address] [place] [address] Nurse Practitioner Family Medicine 01/06/23 documented as of this encounter
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
--- OUTSIDE RECORDS SUMMARY | 2024-05-10 15:51 | XMS_ITS | Encounter Summary ---
Author Organization [employer] Address [address] [place] [address] Care Team Providers Care Motorboat Mechanic Inboard Name Role Phone Bijal Mejia MD Primary Care Provider [phone] Puma Sorto Unavailable Unavailable Encounter Details Date Type Department Care Team (Late Contact Info) Description 09/11/2022 Orders Only [facility] [address] [place], [place] [phone] Zoya Maldonado LPN Social History Tobacco Use [...] Description 05/16/2024 3:45 PM EDT Office Visit [facility] [address] [place], [place] [phone] Bijal Mejia MD [address] [place], [place] [phone] documented as of this encounter Visit Diagnoses Not on filedocumented in this encounter Additional Health Concerns Assessment Noted Time PHQ-9 Depression Total Score: 4 03/18/19 23 1:44 PM EST documented as of this encounter Care Teams Motorboat Mechanic Inboard Relationship Specialty Start Date End Date Bijal Mejia MD [address] [place] [address] PCP - General Family Medicine 02/16/18 Puma Sorto FNP [address] [place] [address] Nurse Practitioner Family Medicine 01/06/23 documented as of this encounter
--- OUTSIDE RECORDS SUMMARY | 2024-05-10 15:51 | XMS_ITS | Encounter Summary ---
Author Organization [employer] Address [address] [place] [address] [place] [address] Care Team Providers Care Microfilm Processor Name Role Phone Bijal Mejia MD Primary Care Provider [phone] Puma Sorto Unavailable Unavailable Reason for Referral * Imaging (Routine) - Closed Specialty Diagnoses / Procedures Referred By Contac t Referred To Contact Radiology Diagnoses Chronic nonintractable headache, unspecified headache type Papilledema Procedures MR Brain w/o Contrast Bijal Mejia MD [address] [place] [address] Phone: tel: fax: [facility] [address] [place] [address] Phone: tel: fax: Referral ID Status Reason Start Date Expiration Date Visits Re quested Visits Authorized [id number] Closed 07/22/2023 07/21/2024 1 1 Encounter Details Date Type Department Care Team (Late st Contact Info) Description 07/22/2023 Orders Only [facility] [address] [place], [place] [phone] Bijal Mejia MD [address] [place], [place] [phone] Anemia, unspecified type (Primary Dx); Chronic nonintractable [...] Description 05/16/2024 3:45 PM EDT Office Visit [facility] [address] [place] [address] Bijal Mejia MD [address] [place] [address] documented as of this encounter Procedures Procedure [...] Vitamin B12 486 200 - 900 pg/mL [facility] Comment:NORMAL 200-900 PG/ML INDETERMINATE 160-199 PG/ML DEFICIENT < 160 PG/ML Folate 4.5 > or = 4.0 ng/mL [facility] Comment:Reference Values:> o r = 4.0 ng/mL< 4.0 ng/mL suggests folate deficiency Methotrexate, aminopterin and folinic acid(leucovorin) are chemotherapeutic agents whose molecularstructures are similar to folate; therefore, the Architectfolate assay cannot be used for patients using these drugs. 07/29/2023 10:4 3 AM EDT 07/29/2023 11:15 AM EDT us Bijal Mejia MD LAB BLOOD ORDERABLES Final Resul t [facility] [address] [place] [address] [phone] * (ABNORMAL) Iron And Total Iron Binding Capacity (07/29/2023 10:43 AM EDT) Iron 24(L) 30 - 160 mcg/dL [facility] Total Iron Binding Capacity 341 228 - 428 mcg/dL [facility] Percent Iron Saturation 7(L) 15 - 50 % [facility] Unsaturated Iron Binding 317 ug/dL [facility] Blood Venous blood specimen / Unknown 07/29/2023 10:43 AM EDT 07/29/2023 11:15 AM EDT Bijal Mejia MD LAB BLOOD ORDERABLES Final Resul t Performing Organization Address City/[facility]/ZIP Co de Phone Number [facility] [address] [place] [phone] * (ABNORMAL) Ferritin (07/29/2023 10:43 AM EDT) Pathologist [facility] Ferritin 8(L) 10 - 122 ng/mL [facility] Blood Venous blood specimen / Unknown 07/29/2023 10:43 AM EDT 07/29/2023 11:15 AM EDT Bijal Mejia MD LAB BLOOD ORDERABLES Final Resul t Performing Organization Address [facility] Co de Phone Number [facility] [address] [place] [phone] * (ABNORMAL) CBC auto differential (07/29/2023 10:43 AM EDT) White Blood Count 12.1(H) 4.8 - 10.8 X10*3/uL [facility] Red Blood Count 4.28 4.20 - 5.50 X10*6/uL [facility] Hemoglobin 9.8(L) 12.0 - 16.0 g/dl [facility] Hematocrit 33.1(L) 37.0 - 47.0 % [facility] Mean Corpuscular Volume 77.3(L) 80.0 - 98.0 fL [facility] Mean Corpuscular Hemoglobin 22.9(L) 27.0 - 33.0 pg [facility] Mean Corpuscular HGB Conc 29.6(L) 31.0 - 35.0 g/dl [facility] Red Cell Distribution Width 18.6(H) 11.0 - 16.0 % [facility] Platelet Count 350 160 - 400 X10*3/uL [facility] Mean Platelet Volume 10.0 9.4 - 12.3 fL [facility] Neutrophils Percent Auto 58.5 45 - 73 % [facility] Imm Gran Pct Auto 0.4 0.0 - 0.4 % [facility] Lymphocytes Percent Auto 29.8 20 - 40 % [facility] Monocytes Percent Auto 6.0 2 - 11 % [facility] Eosinophils Percent Auto 4.7(H) 0 - 4 % [facility] Basophils Percent Auto 0.6 0 - 2 % [facility] NRBC Pct Auto 0.0 0.0 - 0.2 /100WBC [facility] Neutrophils Absolute Auto 7.1 2.0 - 8.3 x10*3/uL [facility] Imm Gran Abs Auto 0.05(H) 0.00 - 0.03 X10*3/uL [facility] Lymphocytes Absolute Auto 3.6 1.2 - 4.9 X10*3/uL [facility] Monocytes Absolute Auto 0.7 0.1 - 1.2 X10*3/uL [facility] Eosinophils Absolute Auto 0.6(H) 0.0 - 0.4 X10*3/uL [facility] Basophils Absolute Auto 0.1 0.0 - 0.2 X10*3/uL [facility] NRBC Abs Auto 0.000 0.0 - 0.012 X10*3/uL [facility] Blood Venous blood specimen / Unknown 07/29/2023 10:43 AM EDT 07/29/2023 11:15 AM EDT us Bijal Mejia MD LAB BLOOD ORDERABLES Final Resul t [facility] [address] [place] [phone] * Comprehensive Metabolic Panel (07/29/2023 10:43 AM EDT) Sodium 139 135 - 145 mmol/L [facility] Potassium 3.7 3.3 - 5.1 mmol/L [facility] Chloride 105 96 - 108 mmol/L [facility] Carbon Dioxide 26 22 - 29 mmol/L [facility] Anion Gap 12 12 - 20 [facility] Urea Nitrogen (BUN) 11 9 - 16 mg/dL [facility] Creatinine, Serum 0.65 0.5 - 1.4 mg/dL [facility] Estimated Glomerular Filt Rate >60 [facility] Comment:NOTE: For -Am erican individuals, multiply the result by 1.210.Chronic Kidney Disease: Estimated GFR < 60 mL/min/1.86z3Mmpqvj Kidney Disease: Estimated GFR < 15 mL/min/1.73m2 Glucose 102 60 - 115 mg/dL [facility] Calcium 9.5 8.4 - 10.2 mg/dL [facility] Bilirubin, Total 0.3 0.0 - 1.0 mg/dL [facility] Aspartate Amino Transferase 17 5 - 31 U/L [facility] Alanine Aminotransferase 26 0 - 31 U/L [facility] Total Protein 7.9 6.5 - 8.0 g/dL [facility] Albumin Level 3.9 3.5 - 5.0 g/dL [facility] Alkaline Phosphatase 95 39 - 117 U/L [facility] Blood Venous blood specimen / Unknown 07/29/2023 10:43 AM EDT 07/29/2023 11:15 AM EDT Bijal Mejia MD LAB BLOOD ORDERABLES Final Resul t [facility] [address] [place] [phone] * MR Brain w/o Contrast (07/02/2023) [...] documented as of this encounter Care Teams Microfilm Processor Relationship Specialty Start Date End Date Bijal Mejia MD [address] [place] [address] PCP - General Family Medicine 02/16/18 Puma Sorto FNP [address] [place] [address] Nurse Practitioner Family Medicine 01/06/23 documented as of this encounter
--- OUTSIDE RECORDS SUMMARY | 2024-05-10 15:51 | XMS_ITS | Encounter Summary ---
Author Organization [employer] Address [address] [place] [address] [place] [address] Care Team Providers Care Demonstrator Sewing Techniques Name Role Phone Bijal Mejia MD Primary Care Provider Puma Sorto Unavailable Unavailable Reason for Visit * Reason Onset Date Comments Med Refill 04/25/2024 Encounter Details Date Type Department Care Team (Late st Contact Info) Description 04/25/2024 Refill [facility] [address] [place], [place] [phone] Bijal Mejia MD [address] [place] [address] Social History Tobacco Use Types Packs/Day Years [...] Description 05/16/2024 3:45 PM EDT Office Visit [facility] [address] [place] [phone] Bijal Mejia MD [address] [place] [address] documented as of this encounter Visit Diagnoses Not on filedocumented in this encounter Additional Health Concerns Assessment Noted Time PHQ-9 Depression Total Score: 7 07/30/19 24 1:24 PM EDT documented as of this encounter Care Teams Demonstrator Sewing Techniques Relationship Specialty Start Date End Date Bijal Mejia MD [address] [place] [address] PCP - General Family Medicine 02/16/18 Puma Sorto FNP [address] [place] [address] Nurse Practitioner Family Medicine 01/06/23 documented as of this encounter
--- OUTSIDE RECORDS SUMMARY | 2024-05-10 15:51 | XMS_ITS | Encounter Summary ---
Author Organization [employer] Address [address] [place] [address] Care Team Providers Care Tele Grout Sewer Line Repairer Name Role Phone Bijal Mejia MD Primary Care Provider [phone] Puma Sorto Unavailable Unavailable Encounter Details Date Type Department Care Team (Late st Contact Info) Description 09/05/[address] [facility] [address] [place] [address] Tara Amin LPN Social History Tobacco Use [...] Description 05/16/2024 3:45 PM EDT Office Visit [facility] [address] [place] [address] [phone] Bijal Mejia MD [address] [place], [place] [phone] documented as of this encounter Visit Diagnoses Not on filedocumented in this encounter Additional Health Concerns Assessment Noted Time PHQ-9 Depression Total Score: 4 03/18/19 23 1:44 PM EST documented as of this encounter Care Teams Tele Grout Sewer Line Repairer Relationship Specialty Start Date End Date Bijal Mejia MD [address] [place] [address] PCP - General Family Medicine 02/16/18 Puma Sorto FNP [address] [place] [address] Nurse Practitioner Family Medicine 01/06/23 documented as of this encounter
--- OUTSIDE RECORDS SUMMARY | 2024-05-10 15:51 | XMS_ITS | Encounter Summary ---
Author Organization [employer] Address [address] [facility] 7 [place] [address] Care Team Providers Care Consumer Insight Analyst Name Role Phone Bijal Mejia MD Primary Care Provider [phone] Puma Sorto Unavailable Unavailable Encounter Details Date Type Department Care Team (Late st Contact Info) Description 07/29/2023 Orders Only [facility] [address] [place], [place] [phone] Bijal Mejia MD [address] [place], [place] [phone] Social History Tobacco Use Types Packs/Day Years [...] Description 05/16/2024 3:45 PM EDT Office Visit [facility] [address] [place] [phone] Bijal Mejia MD [address] [place] [address] documented as of this encounter Visit Diagnoses Not on filedocumented in this encounter Additional Health Concerns Assessment Noted Time PHQ-9 Depression Total Score: 18 024 3:30 PM EDT documented as of this encounter Care Teams Consumer Insight Analyst Relationship Specialty Start Date End Date Bijal Mejia MD [address] [place] [phone] PCP - General Family Medicine 02/16/18 Puma Sorto FNP [address] [place] [address] Nurse Practitioner Family Medicine 01/06/23 documented as of this encounter
--- OUTSIDE RECORDS SUMMARY | 2024-05-10 15:51 | XMS_ITS | Encounter Summary ---
Author Organization [employer] Address [address] [place] [address] 7 [place] [address] Care Team Providers Care Sql Ssis Developer Name Role Phone Bijal Mejia MD Primary Care Provider [phone] Puma Sorto Unavailable Unavailable Encounter Details Date Type Department Care Team (Late st Contact Info) Description 02/02/2023 Orders Only [facility] [address] [place], [place] [phone] Bijal Mejia MD [address] [place], [place] [phone] Anemia, unspecified type (Primary Dx) Social History [...] Description 05/16/2024 3:45 PM EDT Office Visit [facility] [address] [place], [place] [phone] Bijal Mejia MD [address] [place], [place] [phone] documented as of this encounter Procedures Procedure [...] Vitamin B12 443 200 - 900 pg/mL [facility] Comment:NORMAL 200-900 PG/ML INDETERMINATE 160-199 PG/ML DEFICIENT < 160 PG/ML Folate 8.8 > or = 4.0 ng/mL [facility] Comment:Reference Values:> o r = 4.0 ng/mL< 4.0 ng/mL suggests folate deficiency Methotrexate, aminopterin and folinic acid(leucovorin) are chemotherapeutic agents whose molecularstructures are similar to folate; therefore, the Architectfolate assay cannot be used for patients using these drugs. 02/27/2023 11:5 2 AM EST 02/27/2023 11:52 AM EST Bijal Mejia MD LAB BLOOD ORDERABLES Final Resul t Performing Organization Address [facility] de Phone Number [facility] [address] [place] [phone] * (ABNORMAL) Iron And Total Iron Binding Capacity (02/27/2023 11:52 AM EST) Iron 45 30 - 160 mcg/dL [facility] Comment:Moderate Hemolysis Total Iron Binding Capacity 325 228 - 428 mcg/dL [facility] Percent Iron Saturation 14(L) 15 - 50 % [facility] Unsaturated Iron Binding 280 ug/dL [facility] Blood Venous blood specimen / Unknown 02/27/2023 11:52 AM EST 02/27/2023 11:52 AM EST Bijal Mejia MD LAB BLOOD ORDERABLES Final Resul t Performing Organization Address [facility] Phone Number [facility] [address] [place] [phone] * Ferritin (02/27/2023 11:52 AM EST) Ferritin 15 10 - 122 ng/mL [facility] Blood Venous blood specimen / Unknown 02/27/2023 11:52 AM EST 02/27/2023 11:52 AM EST Bijal Mejia MD LAB BLOOD ORDERABLES Final Resul t Performing Organization Address [facility] Phone Number [facility] [address] [place] [phone] documented in this encounter Visit Diagnoses Diagnosis Anemia, unspecified type- Primary documented in this encounter Additional Health Concerns Assessment Noted Time PHQ-9 Depression Total Score: 3 01/23/20 3:38 PM EST documented as of this encounter Care Teams Sql Ssis Developer Relationship Specialty Start Date End Date Bijal Mejia MD [address] [place] [address] PCP - General Family Medicine 02/16/18 Puma Sorto FNP [address] [place] [address] Nurse Practitioner Family Medicine 01/06/23 documented as of this encounter
--- OUTSIDE RECORDS SUMMARY | 2024-05-10 15:51 | XMS_ITS | Encounter Summary ---
Author Organization [employer] Address [address] [place] [address] [place] [address] Care Team Providers Care Flight Test Engineer Name Role Phone Bijal Mejia MD Primary Care Provider [phone] Puma Sorto Unavailable Unavailable Reason for Visit * Reason Onset Date Comments Med Change Request Prior Authorization 01/26/2023 Encounter Details Date Type Department Care Team ([facility] st Contact Info) Description 01/26/2023 Refill [facility] [address] [place], [place] [phone] Bijal Mejia MD [address] [place] [address] Social History Tobacco Use Types Packs/Day Years [...] EST CHACHA req for Asmanex submitted [facility]; awaiting decision. documented in this encounter Plan of Treatment Upcoming Encounters Date Type Department Care Team (Late st Contact Info) Description 05/16/2024 3:45 PM EDT Office Visit [facility] [address] [place] [address] Bijal Mejia MD [address] [place] [address] documented as of this encounter Visit Diagnoses Not on filedocumented in this encounter Additional Health Concerns Assessment Noted Time PHQ-9 Depression Total Score: 3 01/23/20 23 3:38 PM EST documented as of this encounter Care Teams Flight Test Engineer Relationship Specialty Start Date End Date Bijal Mejia MD [address] [place] [address] PCP - General Family Medicine 02/16/18 Puma Sorto FNP [address] [place] [phone] Nurse Practitioner Family Medicine 01/06/23 documented as of this encounter
== END 2024-05-10 14:04 | disposition home or self-care (01) ==
LOC: HO.HWS 13:02
PROVIDERS: PCP Family Medicine; Visit Provider Obstetrics & Gynecology
DX: N93.9 Abnormal uterine and vaginal bleeding, unspecified (principal)
CPT/HCPCS: 99203

== ENCOUNTER 2024-05-19 11:30 | Outpatient (RCR) | payer OTHER, SELFPAY ==
[2024-04-14 10:44] VITALS: BP 123/89; PULSE 99; RESP 20; TEMP 37.4; O2SAT 99
[2024-04-14] MEDS: Iron Sucrose Complex 200 MG/10 ML VIAL IVPUSH (10:55)
[2024-04-21 11:18] VITALS: BP 126/85; PULSE 91; RESP 18; TEMP 36.6; O2SAT 100
[2024-04-21] MEDS: Iron Sucrose Complex 200 MG/10 ML VIAL IVPUSH (11:39)
[2024-04-28 11:36] VITALS: BP 158/91; PULSE 110; RESP 18; TEMP 36.5; O2SAT 99
[2024-04-28] MEDS: Iron Sucrose Complex 200 MG/10 ML VIAL IVPUSH (12:01)
[2024-05-05 11:38] VITALS: BP 137/85; PULSE 92; RESP 16; TEMP 36.6; O2SAT 100
[2024-05-05] MEDS: Iron Sucrose Complex 200 MG/10 ML VIAL IVPUSH (11:51)
[2024-05-05 12:02] LABS: Hematocrit 36.1 % (37.0-47.0); Hemoglobin 11.2 g/dl (12.0-16.0); Mean Corpuscular Hemoglobin 24.6 pg (27.0-33.0); Mean Corpuscular Volume 79.2 fL (80.0-98.0); Mean Platelet Volume 9.5 fL (9.4-12.3); Platelet Count 387 X10*3/uL (160-400); Red Blood Count 4.56 X10*6/uL (4.20-5.50); Red Cell Distribution Width 24.6 % (11.0-16.0); White Blood Count 9.6 X10*3/uL (4.8-10.8)
[2024-05-05 12:34] LABS: Ferritin 121 ng/mL (10-122)
[2024-05-12 12:55] VITALS: BP 140/83; PULSE 91; RESP 16; TEMP 37.3; O2SAT 100
[2024-05-12] MEDS: Iron Sucrose Complex 200 MG/10 ML VIAL IVPUSH (13:13)
[2024-05-19 11:41] VITALS: BP 154/96; PULSE 105; RESP 16; TEMP 36.4; O2SAT 100
[2024-05-19] MEDS: Iron Sucrose Complex 200 MG/10 ML VIAL IVPUSH (11:54)
== END 2024-05-19 12:03 | disposition home or self-care (01) ==
LOC: HO.INF 11:30
PROVIDERS: Visit Provider Nurse Practitioner Family
DX: D64.9 Anemia, unspecified (principal)
CPT/HCPCS: 36415; 82728; 85027; 96374; J1756

== ENCOUNTER 2024-06-07 11:32 | Outpatient (REF) | payer OTHER, SELFPAY ==
[2024-06-07 13:35] LABS: Hematocrit 40.5 % (37.0-47.0); Hemoglobin 12.2 g/dl (12.0-16.0); Mean Corpuscular HGB Conc 30.1 g/dl (31.0-35.0); Mean Corpuscular Hemoglobin 26.8 pg (27.0-33.0); Mean Platelet Volume 10.1 fL (9.4-12.3); Platelet Count 319 X10*3/uL (160-400); Red Blood Count 4.55 X10*6/uL (4.20-5.50); Red Cell Distribution Width 25.7 % (11.0-16.0); White Blood Count 9.9 X10*3/uL (4.8-10.8)
--- OUTSIDE RECORDS SUMMARY | 2024-06-07 14:05 | XMS_ITS | Encounter Summary ---
Author Organization [employer] Address [address] [place] [address] [place] [address] Care Team Providers Care Ribbon Tier Name Role Phone Bijal Mejia MD Primary Care Provider [phone] Puma Sorto Unavailable Unavailable Reason for Visit * Reason Onset Date Comments Med Refill 06/02/2024 Encounter Details Date Type Department Care Team (Late st Contact Info) Description 06/02/2024 Refill [facility] 230 [place], [place] [phone] Bijal Mejia MD [address] [place] [address] Social History Tobacco Use Types Packs/Day Years Used Date Smoking Tobacco: Never Smokeless Tobacco: Never Alcohol Answer Date Recorded How often do you have a drink containing alcohol ? 2 01/28/2024 Average Number of Drinks Not on file Frequency of Binge Drinking Not on file 01/16 Depression Answer Date Recorded Patient Health Questionnaire-9 Score 10 05/16/2024 Patient Health Questionnaire-9 Score 10 05/16/2024 Last PHQ-9: Questionnaire Data Not on file 0 05/16/2024 Housing Stability Answer Date Recorded What is [...] Date Recorded Patient Health Questionnaire-2 Score 2 05/16/2024 Internet Access Answer Date Recorded Internet Access [...] Assessment Noted Time PHQ-9 Depression Total Score: 10 025 4:27 PM EDT documented as of this encounter Care Teams Ribbon Tier Relationship Specialty Start Date End Date Bijal Mejia MD [address] [place] [address] PCP - General Family Medicine 02/16/18 Puma Sorto FNP [address] [place] [address] Nurse Practitioner Family Medicine 01/06/23 documented as of this encounter
--- OUTSIDE RECORDS SUMMARY | 2024-06-07 14:05 | XMS_ITS | Encounter Summary ---
Author Organization [employer] Address [address] [facility] 7 [place] [address] Care Team Providers Care Tool Sharpener Name Role Phone Bijal Mejia MD Primary Care Provider [phone] Puma Sorto Unavailable Unavailable Encounter Details Date Type Department Care Team (Late st Contact Info) Description 07/29/2023 Orders Only [facility] [address] [place], [place] [phone] Bijal Mejia MD 230 [place], [place] [phone] Social History Tobacco Use Types Packs/Day Years [...] documented as of this encounter Care Teams Tool Sharpener Relationship Specialty Start Date End Date Bijal Mejia MD 230 [place] [address] PCP - General Family Medicine 02/16/18 Puma Sorto FNP 230 [place] [address] Nurse Practitioner Family Medicine 01/06/23 documented as of this encounter
--- OUTSIDE RECORDS SUMMARY | 2024-06-07 14:05 | XMS_ITS | Encounter Summary ---
Author Organization [employer] Address [address] [place] [address] Care Team Providers Care Head Of Insight Name Role Phone Bijal Mejia MD Primary Care Provider [phone] Puma Sorto Unavailable Unavailable Reason for Visit * Reason Onset Date Comments Appointment Request 04/20/2023 Encounter Details Date Type Department Care Team ([facility] st Contact Info) Description 04/20/2023 Telephone [facility] [address] [place], [place] [phone] Bijal Mejia MD [address] [place], [place] [phone] Appointment Request Social History Tobacco Use Types [...] documented as of this encounter Care Teams Head Of Insight Relationship Specialty Start Date End Date Bijal Mejia MD [address] [place] [address] PCP - General Family Medicine 02/16/18 Puma Sorto FNP [address] [place] [address] Nurse Practitioner Family Medicine 01/06/23 documented as of this encounter
--- OUTSIDE RECORDS SUMMARY | 2024-06-07 14:05 | XMS_ITS | Encounter Summary ---
Author Organization [employer] Address [address] [place] [address] [place] [address] Care Team Providers Care Post Hole Digging Machine Operator Name Role Phone Bijal Mejia MD Primary Care Provider [phone] Puma Sorto Unavailable Unavailable Reason for Referral * Imaging (Routine) - Closed Specialty Diagnoses / Procedures Referred By Contac t Referred To Contact Radiology Diagnoses Chronic nonintractable headache, unspecified headache type Papilledema Procedures MR Brain w/o Contrast Bijal Mejia MD [address] [place] [address] Phone: tel: fax: [facility] [address] [place] [address] Phone: tel: fax: Referral ID Status Reason Start Date Expiration Date Visits Re quested Visits Authorized [id number] Closed 07/22/2023 07/21/2024 1 1 Encounter Details Date Type Department Care Team (Late st Contact Info) Description 07/22/2023 Orders Only [facility] 230 [place], [place] [phone] Bijal Mejia MD [address] [place], [place] [phone] Anemia, unspecified type (Primary Dx); Chronic nonintractable [...] Vitamin B12 486 200 - 900 pg/mL [facility] Comment:NORMAL 200-900 PG/ML INDETERMINATE 160-199 PG/ML DEFICIENT < 160 PG/ML Folate 4.5 > or = 4.0 ng/mL [facility] Comment:Reference Values:> o r = 4.0 ng/mL< 4.0 ng/mL suggests folate deficiency Methotrexate, aminopterin and folinic acid(leucovorin) are chemotherapeutic agents whose molecularstructures are similar to folate; therefore, the Architectfolate assay cannot be used for patients using these drugs. 07/29/2023 10:4 3 AM EDT 07/29/2023 11:15 AM EDT us iBjal Mejia MD LAB BLOOD ORDERABLES Final Resul t [facility] [address] [place] [phone] * (ABNORMAL) Iron And Total Iron Binding Capacity (07/29/2023 10:43 AM EDT) Iron 24(L) 30 - 160 mcg/dL [facility] Total Iron Binding Capacity 341 228 - 428 mcg/dL [facility] Percent Iron Saturation 7(L) 15 - 50 % [facility] Unsaturated Iron Binding 317 ug/dL [facility] Blood Venous blood specimen / Unknown 07/29/2023 10:43 AM EDT 07/29/2023 11:15 AM EDT us Bijal Mejia MD LAB BLOOD ORDERABLES Final Resul t Performing Organization Address City/[facility]/ZIP Co de Phone Number [facility] [address] [place] [address] [phone] * (ABNORMAL) Ferritin (07/29/2023 10:43 AM EDT) [facility] Ferritin 8(L) 10 - 122 ng/mL [facility] Blood Venous blood specimen / Unknown 07/29/2023 10:43 AM EDT 07/29/2023 11:15 AM EDT Bijal Mejia MD LAB BLOOD ORDERABLES Final Resul t Performing Organization Address [facility] Co de Phone Number [facility] [address] [place] [phone] [phone] * (ABNORMAL) CBC auto differential (07/29/2023 10:43 AM EDT) [facility] White Blood Count 12.1(H) 4.8 - 10.8 X10*3/uL [facility] Red Blood Count 4.28 4.20 - 5.50 X10*6/uL [facility] Hemoglobin 9.8(L) 12.0 - 16.0 g/dl [facility] Hematocrit 33.1(L) 37.0 - 47.0 % [facility] Mean Corpuscular Volume 77.3(L) 80.0 - 98.0 fL [facility] Mean Corpuscular Hemoglobin 22.9(L) 27.0 - 33.0 pg [facility] Mean Corpuscular HGB Conc 29.6(L) 31.0 - 35.0 g/dl [facility] Red Cell Distribution Width 18.6(H) 11.0 - 16.0 % [facility] Platelet Count 350 160 - 400 X10*3/uL [facility] Mean Platelet Volume 10.0 9.4 - 12.3 fL [facility] Neutrophils Percent Auto 58.5 45 - 73 % [facility] Imm Gran Pct Auto 0.4 0.0 - 0.4 % [facility] Lymphocytes Percent Auto 29.8 20 - 40 % [facility] Monocytes Percent Auto 6.0 2 - 11 % [facility] Eosinophils Percent Auto 4.7(H) 0 - 4 % [facility] Basophils Percent Auto 0.6 0 - 2 % [facility] NRBC Pct Auto 0.0 0.0 - 0.2 /100WBC [facility] Neutrophils Absolute Auto 7.1 2.0 - 8.3 x10*3/uL [facility] Imm Gran Abs Auto 0.05(H) 0.00 - 0.03 X10*3/uL [facility] Lymphocytes Absolute Auto 3.6 1.2 - 4.9 X10*3/uL [facility] Monocytes Absolute Auto 0.7 0.1 - 1.2 X10*3/uL [facility] Eosinophils Absolute Auto 0.6(H) 0.0 - 0.4 X10*3/uL [facility] Basophils Absolute Auto 0.1 0.0 - 0.2 X10*3/uL [facility] NRBC Abs Auto 0.000 0.0 - 0.012 X10*3/uL [facility] Blood Venous blood specimen / Unknown 07/29/2023 10:43 AM EDT 07/29/2023 11:15 AM EDT us Bijal Mejia MD LAB BLOOD ORDERABLES Final Resul t [facility] [address] [place] [phone] * Comprehensive Metabolic Panel (07/29/2023 10:43 AM EDT) Sodium 139 135 - 145 mmol/L [facility] Potassium 3.7 3.3 - 5.1 mmol/L [facility] Chloride 105 96 - 108 mmol/L [facility] Carbon Dioxide 26 22 - 29 mmol/L [facility] Anion Gap 12 12 - 20 [facility] Urea Nitrogen (BUN) 11 9 - 16 mg/dL [facility] Creatinine, Serum 0.65 0.5 - 1.4 mg/dL [facility] Estimated Glomerular Filt Rate >60 [facility] Comment:NOTE: For -Am erican individuals, multiply the result by 1.210.Chronic Kidney Disease: Estimated GFR < 60 mL/min/1.67n3Wlxlgi Kidney Disease: Estimated GFR < 15 mL/min/1.73m2 Glucose 102 60 - 115 mg/dL [facility] Calcium 9.5 8.4 - 10.2 mg/dL [facility] Bilirubin, Total 0.3 0.0 - 1.0 mg/dL [facility] Aspartate Amino Transferase 17 5 - 31 U/L [facility] Alanine Aminotransferase 26 0 - 31 U/L [facility] Total Protein 7.9 6.5 - 8.0 g/dL [facility] Albumin Level 3.9 3.5 - 5.0 g/dL [facility] Alkaline Phosphatase 95 39 - 117 U/L [facility] Blood Venous blood specimen / Unknown 07/29/2023 10:43 AM EDT 07/29/2023 11:15 AM EDT Bijal Mejia MD LAB BLOOD ORDERABLES Final Resul t [facility] [address] [place] [phone] * MR Brain w/o Contrast (07/02/2023) [...] documented as of this encounter Care Teams Post Hole Digging Machine Operator Relationship Specialty Start Date End Date Bijal Mejia MD [address] [place] [address] PCP - General Family Medicine 02/16/18 Puma Sorto FNP [address] [place] [address] Nurse Practitioner Family Medicine 01/06/23 documented as of this encounter
--- OUTSIDE RECORDS SUMMARY | 2024-06-07 14:05 | XMS_ITS | Encounter Summary ---
Author Organization [employer] Address [address] [place] [address] 7 [place] [address] Care Team Providers Care Loss Prevention Specialist Name Role Phone Bijal Mejia MD Primary Care Provider [phone] Puma Sorto Unavailable Unavailable Encounter Details Date Type Department Care Team (Late st Contact Info) Description 09/11/2022 Orders Only [facility] [address] [place], [place] [phone] Zoya Maldonado LPN Social History Tobacco Use [...] documented as of this encounter Care Teams Loss Prevention Specialist Relationship Specialty Start Date End Date Bijal Mejia MD [address] [place] [address] PCP - General Family Medicine 02/16/18 Puma Sorto FNP [address] [place] [address] Nurse Practitioner Family Medicine 01/06/23 documented as of this encounter
--- OUTSIDE RECORDS SUMMARY | 2024-06-07 14:05 | XMS_ITS | Encounter Summary ---
Author Organization [employer] Address [address] [place] [address] [place] [address] Care Team Providers Care Express Clerk Name Role Phone Bijal Mejia MD Primary Care Provider [phone] Puma Sorto Unavailable Unavailable Reason for Visit * Reason Onset Date Comments Med Change Request Prior Authorization 01/26/2023 Encounter Details Date Type Department Care Team ([facility] st Contact Info) Description 01/26/2023 Refill [facility] [address] [place], [place] [phone] Bijal Mejia MD [address] [place] [address] Social History Tobacco Use Types Packs/Day Years Used Date Smoking Tobacco: Never Smokeless Tobacco: Never Depression Answer Date Recorded Patient Health Questionnaire-9 Score 3 01/22/2023 Patient Health Questionnaire-9 Score 3 01/22/2023 Last PHQ-9: Questionnaire Data Not on file 1 03/25/2022 Housing Stability Answer Date Recorded What is your housing situation today? I have magdalena arrooy 01/16/[address] you li [...] EST CHACHA req for Asmanex submitted through [facility]; awaiting decision. documented in this encounter Plan of Treatment Not on file documented as of this encounter Visit Diagnoses Not on filedocumented in this encounter Additional Health Concerns Assessment Noted Time PHQ-9 Depression Total Score: 3 01/23/20 23 3:38 PM EST documented as of this encounter Care Teams Express Clerk Relationship Specialty Start Date End Date Bijal Mejia MD [address] [place] [address] PCP - General Family Medicine 02/16/18 Puma Sorto FNP [address] [place] [address] Nurse Practitioner Family Medicine 01/06/23 documented as of this encounter
--- OUTSIDE RECORDS SUMMARY | 2024-06-07 14:05 | XMS_ITS | Encounter Summary ---
Author Organization [employer] Address [address] [place] [address] [place] [address] Care Team Providers Care Scouring Machine Operator Name Role Phone Bijal Mejia MD Primary Care Provider [phone] Puma Sorto Unavailable Unavailable Encounter Details Date Type Department Care Team (Late st Contact Info) Description 09/05/2022 Orders Only [facility] [address] [place], [place] [phone] Tara Amin LPN Social History Tobacco Use [...] documented as of this encounter Care Teams Scouring Machine Operator Relationship Specialty Start Date End Date Bijal Mejia MD [address] [place] [address] PCP - General Family Medicine 02/16/18 Puma Sorto FNP [address] [place] [address] Nurse Practitioner Family Medicine 01/06/23 documented as of this encounter
--- OUTSIDE RECORDS SUMMARY | 2024-06-07 14:05 | XMS_ITS | Encounter Summary ---
Author Organization [employer] Address [address] [place] [address] [place] [address] Care Team Providers Care Block Sorter Name Role Phone Bijal Mejia MD Primary Care Provider Puma Sorto Unavailable Unavailable Reason for Visit * Reason Onset Date Comments Med Refill 04/25/2024 Encounter Details Date Type Department Care Team (Late st Contact Info) Description 04/25/2024 Refill [facility] MED[facility]INE [address] [place], [place] [phone] Bijal Mejia MD [address] [place] [address] Social History Tobacco Use Types Packs/Day Years [...] documented as of this encounter Care Teams Block Sorter Relationship Specialty Start Date End Date Bijal Mejia MD [address] [place] [address] PCP - General Family Medicine 02/16/18 Puma Sorto FNP [address] [place] [address] Nurse Practitioner Family Medicine 01/06/23 documented as of this encounter
--- OUTSIDE RECORDS SUMMARY | 2024-06-07 14:05 | XMS_ITS | Encounter Summary ---
Author Organization [employer] Address [address] [place] [address] 7 [place] [address] Care Team Providers Care Human Resources Hr Representative Name Role Phone Bijal Mejia MD Primary Care Provider Puma Sorto Unavailable Unavailable Encounter Details Date Type Department Care Team (Late st Contact Info) Description 02/02/2023 Orders Only [facility]INE [address] [place], [place] [phone] Bijal Mejia MD [address] [place], [place] [phone] Anemia, unspecified type (Primary Dx) Social History [...] Vitamin B12 443 200 - 900 pg/mL [facility] Comment:NORMAL 200-900 PG/ML INDETERMINATE 160-199 PG/ML DEFICIENT < 160 PG/ML Folate 8.8 > or = 4.0 ng/mL [facility] Comment:Reference Values:> o r = 4.0 ng/mL< 4.0 ng/mL suggests folate deficiency Methotrexate, aminopterin and folinic acid(leucovorin) are chemotherapeutic agents whose molecularstructures are similar to folate; therefore, the Architectfolate assay cannot be used for patients using these drugs. 02/27/2023 11:5 2 AM EST 02/27/2023 11:52 AM EST us Bijal Mejia MD LAB BLOOD ORDERABLES Final Resul t [facility] [address] [place] [phone] * (ABNORMAL) Iron And Total Iron Binding Capacity (02/27/2023 11:52 AM EST) Iron 45 30 - 160 mcg/dL [facility] Comment:Moderate Hemolysis Total Iron Binding Capacity 325 228 - 428 mcg/dL [facility] Percent Iron Saturation 14(L) 15 - 50 % [facility] Unsaturated Iron Binding 280 ug/dL [facility] Blood Venous blood specimen / Unknown 02/27/2023 11:52 AM EST 02/27/2023 11:52 AM EST us Bijal Mejia MD LAB BLOOD ORDERABLES Final Resul t Performing Organization Address [facility] Co de Phone Number [facility] [address] [place] [phone] * Ferritin (02/27/2023 11:52 AM EST) Ferritin 15 10 - 122 ng/mL [facility] Blood Venous blood specimen / Unknown 02/27/2023 11:52 AM EST 02/27/2023 11:52 AM EST Bijal Mejia MD LAB BLOOD ORDERABLES Final Resul t Performing Organization Address [facility] de Phone Number [facility] [address] [place] [phone] documented in this encounter Visit Diagnoses Diagnosis Anemia, unspecified type- Primary documented in this encounter Additional Health Concerns Assessment Noted Time PHQ-9 Depression Total Score: 3 01/23/20 23 3:38 PM EST documented as of this encounter Care Teams Human Resources Hr Representative Relationship Specialty Start Date End Date Bijal Mejia MD [address] [place] [address] PCP - General Family Medicine 02/16/18 Puma Sorto FNP [address] [place] [address] Nurse Practitioner Family Medicine 01/06/23 documented as of this encounter
--- OUTSIDE RECORDS SUMMARY | 2024-06-07 14:05 | XMS_ITS | Clinical Summary ---
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 0.3 0.0 - 0.4 X10*3/uL [facility] Basophils Absolute Auto 0.1 0.0 - 0.2 X10*3/uL [facility] NRBC Abs Auto 0.000 0.0 - 0.012 X10*3/uL [facility] Blood Venous blood specimen / Unknown 03/14/2024 2:05 PM EST 03/14/2024 4:20 PM EST us Bijal Mejia MD LAB BLOOD ORDERABLES Final Resul t [facility] [address] [place], [place] [phone] * (ABNORMAL) Reticulocyte Count (03/14/2024 2:05 PM EST) Reticulocytes Absolute 0.069 0.026 - 0.095 X10*6/uL [facility] Immature Retic Fraction 26.7(H) 3.0 - 15.9 % [facility] Retic HGB Equivalent 21.8(L) 30.0 - 35.0 pg [facility] Reticulocyte Percent 1.6 0.5 - 1.8 % [facility] Blood Venous blood specimen / Unknown 03/14/2024 2:05 PM EST 03/14/2024 4:20 PM EST Bijal Mejia MD LAB BLOOD ORDERABLES Final Resul t Performing Organization Address [facility] Co de Phone Number [facility] [address] [place] [phone] * (ABNORMAL) Lipid Panel with Reflex to Direct LDL (01/27/2023 9:58 AM EST) Triglycerides 83 <150 mg/dL [facility] Comment:Desirable Triglyceri de: less than 150 mg/dLBorderline High Triglyceride 150-199 mg/dLHigh Triglyceride: 200-499 mg/dLVery High Triglyceride: greater than or equal to 5OO mg/dL Cholesterol 150 <200 mg/dL [facility] Comment:Desirable Cholestero l: less than 200 mg/dLBorderline High Cholesterol: 200-239 mg/dLHigh Cholesterol: greater than 239 mg/dL LDL Cholesterol Calculated 95 <100 mg/dL [facility] Comment:Desirable LDL: less than 100 mg/dLNear Optimal/Above Optimal LDL: 110- 129 mg/dLBorderline High LDL: 130-159 mg/dLHigh LDL: 160-189 mg/dLVery High LDL: greater than or equal to 190 mg/dL HDL Cholesterol 39(L) >40 mg/dL [facility] Comment:Desirable HDL: great er than 40 mg/dL Note: This HDL assay may give artificially low results in patients with liver disease. Blood 01/27/2023 9:58 AM EST 01/27/2023 11:12 AM EST us Bijal Mejia MD LAB BLOOD ORDERABLES Final Resul t Performing Organization Address [facility] [address]/ZIP Co de Phone Number [facility] [address] [place] [phone] * HEPATITIS C AB W/REFL TO HCV RNA, QN, PCR (07/18/2021 12:00 AM EDT) HEPATITIS C ANTIBODY NON-REACT RIMMA NON-REACT RIMMA [facility] INDEX 0.05 <1.00 [facility] Comment: ?? HCV antibody was non-reactive. There is no laboratory ?? evidence of HCV infection. ?? In most cases, no further action is required. However, if recent HCV exposure is suspected, a test for HCV RNA (test code 29335) is suggested. ?? For additional information please refer to http://FIXO.SpineThera/faq/ZTQ86a3 (This link is being provided for informational/ educational purposes only.) ?? 07/18/2021 us Bijal Mejia MD HISTORICAL/NON ORDERABLE LABS Fi nal Result Performing Organization Address City/[facility] [address] [facility] Co de Phone Number [facility] [address] [place] [address], * HIV 1/2 ANTIGEN/ANTIBODY,FOURTH GENERATION W/RFL (07/18/2021 12:00 AM EDT) HIV-1/2 ANTIGEN AND ANTIBODIES, 4TH GENERATION W/ REFLEX NON-REACT RIMMA NON-REACT RIMMA [facility] Comment: HIV-1 antigen and HIV-1/HIV-2 [...] ? For additional information please refer to http://FIXO.SpineThera/faq/YFO863 (This link is being provided for informational/ educational purposes only.) ? The performance of this assay has not been clinically validated in patients less than 2 years old. ?? 07/18/2021 us Bijal Mejia MD LAB BLOOD ORDERABLES Final Resul t Performing Organization Address City/State/[facility] Co de Phone Number [facility] [address] from Last 3 Months or Most Recently Relevant to Health Maintenance Insurance [facility] Care Teams Technology Specialist Relationship Specialty Start Date End Date Bijal Mejia MD [address] [place] [phone] PCP - General Family Medicine 02/16/18 Puma Sorto FNP [address] [place] [phone] Nurse Practitioner Family Medicine 01/06/23
[2024-06-07 14:13] LABS: HCG Quantitative < 2 mIU/mL
[2024-06-07 14:44] LABS: Free T4 (Free Thyroxine) 1.21 ng/dL (0.71-1.85)
== END 2024-06-07 11:33 | disposition home or self-care (01) ==
LOC: HO.HHCL 11:32
PROVIDERS: Visit Provider Obstetrics & Gynecology
DX: N93.9 Abnormal uterine and vaginal bleeding, unspecified (principal)
CPT/HCPCS: 36415; 84439; 84443; 84702; 85027

== ENCOUNTER 2024-06-10 14:40 | Outpatient (REF) | payer OTHER, SELFPAY ==
--- OUTSIDE RECORDS SUMMARY | 2024-06-10 15:21 | XMS_ITS | Encounter Summary ---
Author Organization [employer] Address [address] [place] [phone] Care Team Providers Care Vp Rheumatology Name Role Phone Bijal Mejia MD Primary Care Provider [phone] Puma Sorto Unavailable Unavailable Encounter Details Date Type Department Care Team (Late st Contact Info) Description 09/05/2022 Orders Only [facility] [address] [place] [phone] Tara Amin LPN Social History Tobacco [...] Care Team (Late st Contact Info) Description 08/03/2024 10:15 AM EDT Office Visit [facility] [address] [place] [address] [phone] Bijal Mejia MD [address] [place], [place] [phone] documented as of this encounter Visit Diagnoses Not on filedocumented in this encounter Additional Health Concerns Assessment Noted Time PHQ-9 Depression Total Score: 4 03/18/19 23 1:44 PM EST documented as of this encounter Care Teams Vp Rheumatology Relationship Specialty Start Date End Date Bijal Mejia MD [address] [place] [address] PCP - General Family Medicine 02/16/18 Puma Sorto FNP [address] [place] [address] Nurse Practitioner Family Medicine 01/06/23 documented as of this encounter
--- OUTSIDE RECORDS SUMMARY | 2024-06-10 15:21 | XMS_ITS | Encounter Summary ---
Author Organization [employer] Address [address] [place] [address] [place] [address] Care Team Providers Care Exercise Physiology Professor Name Role Phone Bijal Mejia MD Primary Care Provider [phone] Puma Sorto Unavailable Unavailable Reason for Visit * Reason Onset Date Comments Med Refill 04/25/2024 Encounter Details Date Type Department Care Team (Late st Contact Info) Description 04/25/[address] [facility] [address] [place], [place] [phone] Bijal Mejia MD [address] [place] [address] Social History Tobacco Use Types Packs/Day Years [...] Description 08/03/2024 10:15 AM EDT Office Visit [facility] [address] [place] [phone] Bijal Mejia MD [address] [place] [phone] documented as of this encounter Visit Diagnoses Not on filedocumented in this encounter Additional Health Concerns Assessment Noted Time PHQ-9 Depression Total Score: 7 07/30/19 24 1:24 PM EDT documented as of this encounter Care Teams Exercise Physiology Professor Relationship Specialty Start Date End Date Bijal Mejia MD [address] [place] [phone] PCP - General Family Medicine 02/16/18 Puma Sorto FNP [address] [place] [phone] Nurse Practitioner Family Medicine 01/06/23 documented as of this encounter
--- OUTSIDE RECORDS SUMMARY | 2024-06-10 15:21 | XMS_ITS | Encounter Summary ---
Author Organization [employer] Address [address] [place] [address] [place] [address] Care Team Providers Care Chemical Dependency Counselor Name Role Phone Bijal Mejia MD Primary Care Provider [phone] Puma Sorto Unavailable Unavailable Reason for Visit * Reason Onset Date Comments Med Refill 06/02/2024 Encounter Details Date Type Department Care Team (Late st Contact Info) Description 06/02/2024 Refill [facility] [address] [place], [place] [phone] Bijal Mejia MD [address] [place] [phone] Social History Tobacco Use Types Packs/Day Years [...] Description 08/03/2024 10:15 AM EDT Office Visit [facility] [address] [place] [phone] Bijal Mejia MD [address] [place] [phone] documented as of this encounter Visit Diagnoses Not on filedocumented in this encounter Additional Health Concerns Assessment Noted Time PHQ-9 Depression Total Score: 10 025 4:27 PM EDT documented as of this encounter Care Teams Chemical Dependency Counselor Relationship Specialty Start Date End Date Bijal Mejia MD [address] [place] [phone] PCP - General Family Medicine 02/16/18 Puma Sorto FNP [address] [place] [address] Nurse Practitioner Family Medicine 01/06/23 documented as of this encounter
--- OUTSIDE RECORDS SUMMARY | 2024-06-10 15:21 | XMS_ITS | Encounter Summary ---
Author Organization [employer] Address [address] [place] [address] [place] [address] Care Team Providers Care Padding Gluer Name Role Phone Bijal Mejia MD Primary Care Provider [phone] Puma Sorto Unavailable Unavailable Reason for Visit * Reason Onset Date Comments Med Change Request Prior Authorization 01/26/2023 Encounter Details Date Type Department Care Team ([facility] st Contact Info) Description 01/26/2023 Refill [facility] [address] [place], [place] [phone] Bijal Mejia MD [address] [place] [address] Social History Tobacco Use Types Packs/Day Years [...] EST CHACHA req for Asmanex submitted through [facility]; awaiting decision. documented in this encounter Plan of Treatment Upcoming Encounters Date Type Department Care Team (Late st Contact Info) Description 08/03/2024 10:15 AM EDT Office Visit [facility] [address] [place] [address] Bijal Mejia MD [address] [place] [address] documented as of this encounter Visit Diagnoses Not on filedocumented in this encounter Additional Health Concerns Assessment Noted Time PHQ-9 Depression Total Score: 3 01/23/20 23 3:38 PM EST documented as of this encounter Care Teams Padding Gluer Relationship Specialty Start Date End Date Bijal Mejia MD [address] [place] [phone] PCP - General Family Medicine 02/16/18 Puma Sorto FNP [address] [place] [phone] Nurse Practitioner Family Medicine 01/06/23 documented as of this encounter
--- OUTSIDE RECORDS SUMMARY | 2024-06-10 15:21 | XMS_ITS | Encounter Summary ---
Author Organization [employer] Address [address] [place] [phone] Care Team Providers Care All Terrain Vehicle Racer Name Role Phone Bijal Mejia MD Primary Care Provider [phone] Puma Sorto Unavailable Unavailable Reason for Visit * Reason Onset Date Comments Appointment Request 04/20/2023 Encounter Details Date Type Department Care Team ([facility] st Contact Info) Description 04/20/2023 Telephone [facility] [address] [place], [place] [phone] Bijal Mejia MD [address] [place], [place] [phone] Appointment Request Social History Tobacco Use Types [...] Description 08/03/2024 10:15 AM EDT Office Visit [facility] [address] [place] [address] Bijal Mejia MD [address] [place] [address] documented as of this encounter Visit Diagnoses Not on filedocumented in this encounter Additional Health Concerns Assessment Noted Time PHQ-9 Depression Total Score: 8 04/16/19 24 2:34 PM EST documented as of this encounter Care Teams All Terrain Vehicle Racer Relationship Specialty Start Date End Date Bijal Mejia MD [address] [place] [phone] PCP - General Family Medicine 02/16/18 Puma Sorto FNP [address] [place] [phone] Nurse Practitioner Family Medicine 01/06/23 documented as of this encounter
--- OUTSIDE RECORDS SUMMARY | 2024-06-10 15:21 | XMS_ITS | Encounter Summary ---
Author Organization [employer] Address [address] [facility] [address] [place] [address] Care Team Providers Care Elementary Tutor Name Role Phone Bijal Mejia MD Primary Care Provider [phone] Puma Sorto Unavailable Unavailable Encounter Details Date Type Department Care Team (Late st Contact Info) Description 07/29/2023 Orders Only [facility] [address] [place], [place] [phone] Bijal Mejia MD [address] [place], [place] [phone] Social History Tobacco Use Types Packs/Day Years [...] Description 08/03/2024 10:15 AM EDT Office Visit [facility] [address] [place] [phone] Bijal Mejia MD [address] [place] [phone] documented as of this encounter Visit Diagnoses Not on filedocumented in this encounter Additional Health Concerns Assessment Noted Time PHQ-9 Depression Total Score: 18 024 3:30 PM EDT documented as of this encounter Care Teams Elementary Tutor Relationship Specialty Start Date End Date Bijal Mejia MD [address] [place] [phone] PCP - General Family Medicine 02/16/18 Puma Sorto FNP [address] [place] [address] Nurse Practitioner Family Medicine 01/06/23 documented as of this encounter
--- OUTSIDE RECORDS SUMMARY | 2024-06-10 15:21 | XMS_ITS | Clinical Summary ---
Author Organization [employer] Address [address] [place] [address] 7 [place] [address] Care Team Providers Care Financial Planning Assistant Name Role Phone Bijal Mejia MD Primary Care Provider [phone] Puma Sorto Unavailable Unavailable Allergies Active Allergy [...] double negative - seen by Dr. Pimentel, [facility] TRIM CREW SUPERVISOR. AUB full work-up started. Intracranial hypertension 01/28/2024 Assessment & Plan (05/16/2024 5:20 PM EDT): - Chronic headache - Dr. Hines, gardener florist, examined her and patient had papilledema in July 2023 - MRI ion 08/02/23 was normal (done at [facility]) - Following up with neurologist Dr. Trimble Lumbar puncture by Dr. Trimble on 03/16/24. Opening pressure 34 cm H2O - Started on Diamox by Dr. Trimble - Pt will continue working on weight loss by life style modifications Assessment & Plan (01/28/2024 5:51 PM EST): - Chronic headache - Dr. Hines, gardener florist, examined her and patient had papilledema in July 2023 - MRI ion 08/02/23 was normal (done at [facility]) - Evaluated by neurologist, Dr. Trimble, on [...] PM EST): - evaluated by Dr. Waller, [facility] general surgery on 01/11/24 - internal and [...] hypertension / pseudotumor cerebri. - Following with [facility] Eye care and neurologist - Continue acetazolamide Assessment & Plan (01/28/2024 5:55 PM EST): - MRI normal in July 2023 - Following with [facility] Eye care Assessment & Plan (11/11/2023 [...] supplementation - receiving iron infusion currently at [facility] - Evaluated by TRIM CREW SUPERVISOR for AUB - Up coming appointment with [...] retiring, patient will be transferred to new [facility] prescriber. She is aware that this clinician will not be an employee of [facility] and gives permission to share PHI. [...] & Plan (01/27/2023 11:28 AM EST): - [facility] provider: Puma and [facility] clinician - most likely Bipolar Type II - Continue Aripiprazole 20 mg daily. (Puma has been entertaining an alternative that is metabolically-neutral medication such as Latuda and Geodon). - Continue Clonidine 0.1 mg at bedtime or BID - Pt is not taking Buspirone 30 mg prn - follow up with [facility] providers as scheduled Assessment & Plan [...] Type Department Care Team Description 06/02/2024 Refill [facility] [address] [place] [address] Bijal Mejia MD 05/30/[address] [address] Bijal Mejia MD Durable Medical Equipment (CPAP) 05/16/2024 3:45 PM EDT Office Visit [address] [address] Bijal Mejia MD Chronic nonintractable headache, unspecified [...] (BMI) of 50.0 to 59.9 in adult ([facility]); Mixed anxiety and depressive disorder; Mood disorder ([facility]); Hypothyroidism, unspecified type; Irritable bowel syndrome, unspecified type 05/16/2024 Travel 05/10/2024 Orders Only GENERIC EXTERNAL DATA DEPARTMENT Provider, Generic External Data 05/09/2024 Patient Outreach [facility] [address] [place] [address] Bijal Mejia MD Pre-visit Planning (SDOH Screening negative and Tobacco screening negative) 04/25/2024 Refill [facility] [address] [place] [address] Bijal Mejia MD 04/25/2024 Refill [facility] [address] [place] [address] Bijal Mejia MD 04/22/2024 3:15 PM EST Office Visit [facility] [address] [place] [address] Briana Galeas MD Chronic nonintractable headache, unspecified headache type (Primary Dx); Papilledema of both eyes 04/22/2024 Travel 03/16/2024 Orders Only GENERIC EXTERNAL DATA DEPARTMENT Provider, Generic External Data from Last 3 Months Immunizations Name Administration [...] Description 08/03/2024 10:15 AM EDT Office Visit [facility] [address] [place] [address] Bijal Mejia MD [address] [place] [address] Health Maintenance Due Date Last Done Comments [...] PM EDT) HPV High Risk Negative Negative [facility] HPV Genotype 16 Negative Negative [facility] HPV Genotype 18 Negative Negative [facility] Comment:HPV testing performe d at [facility] (CLIA#[id number]), [address] [place] [address].Testing for HPV was performed using the Kandy [...] Provider LAB BLOOD ORDERAB LES Final Result [facility] [address] [place] [phone] * Pap Smear (05/10/2024 2:01 PM EDT) 05/10/2024 2:01 PM EDT 05/11/2024 7:30 AM EDT Narrative [facility] - 05/16/2024 8:31 AM EDT ----- ------- Name: Simran Hadley ?Age/Sex: 29/F ? : 1995 Unit#: [id number] ?? Attend Dr: Joe Pimentel MD ?Re05/10/24 ?Status: DEP REF ? Location: HO.LNP ?Disch: ? ----- ------- SPEC : [id number] ? RECD: 05/11/24 ? STATUS: ??SOUT ? REQ NUM: [id number] ? JED: 05/10/24-1401 ? SUBM DR: Joe Pimentel MD ? ENTERED: ??05/11/24-0759 ?SP TYPE: Pap Smr ?OTHR DR: Bijal [...] Copies To: ?? Bijal Mejia MD ?? [facility] ?? [address] ?? [place] [address] ?? [phone] ?? Joe Pimentel MD ?? [facility] Women's Services ?? [address] ?? [place] [address] ?? [phone] ----- ------- Signed (signature on file) LEYLA Williamson (ASCP) 05/16/24 0831 ? ----- ------- ? END OF REPORT ? us Generic External Data Provider LAB CYTOLOGY BEVERLY BORJAS Final Result [facility] [address] [facility] [place] [address] [phone] * Chlamydia/N. Gonorrhoeae RNA, TMA, Urogenitial (05/10/2024 1:02 PM EDT) [facility] CT PCR NOT DETECTED Not Detect. [facility] Comment:A not detected test result [...] psychologicalconsequences. NG PCR NOT DETECTED Not Detect. [facility] Comment:A not detected test result [...] PM EDT 05/10/2024 3:08 PM EDT Narrative [facility] - 05/10/2024 6:33 PM EDT Vaginal us Generic External Data Provider LAB MICROBIOLOGY - GENERAL ORDERABLES Final Result [facility] [address] [place] [address] [phone] * Total Protein CSF (03/16/2024 11:30 AM EST) [facility] Total Protein CSF 23.9 15 - 45 mg/dL [facility] 03/16/2024 11:3 0 AM EST 03/16/2024 12:36 PM EST us Generic External Data Provider LAB BODY FLUIDS A ND STOOLS ORDERABLES Final Result Performing Organization Address City/[facility]/ZIP Co de Phone Number [facility] [address] [place] [phone] * Oligoclonal banding (03/16/2024 11:30 AM EST) Oligoclonal Bands (IgG), CSF Absent Absent [facility] Comment: GREATER THAN FIVE identical [...] bands due to local production in the JIGSAW OPERATOR,serum and CSF should be tested simultaneously.Oligoclonal bands can however be observed in a varietyof other diseases, e.g., subacute sclerosing panen-cephalitis, inflammatory polyneuropathy, JIGSAW OPERATOR lupus,and brain tumors and infarctions. The clinicalsignificance of a numerical band count, determinedby isoelectric focusing, has not been definitivelydefined. The data should be interpreted in conjunctionwith all pertinent clinical and laboratory data forthis patient.THIS TEST WAS PERFORMED AT:[employer]/[id number] [place], [place] ??[phone] HELLER MD,PHD 03/16/2024 11:3 0 AM EST 03/16/2024 12:36 PM EST us Generic External Data Provider LAB BLOOD ORDERAB LES Final Result [facility] [address] [place] [address] [phone] * IgG Synthesis Rate/Index, CSF (03/16/2024 11:30 AM EST) Albumin 3.9 3.6 - 5.1 g/dL [facility] Comment:THIS TEST WAS PERFOR MED AT:[employer]/[id number] [place] [address]WGPVJNOHEATHER HELLER MD,PHD Immunoglobulin G 1500 600 - 1640 mg/dL [facility] IgG, CSF 2.2 0.8 - 7.7 mg/dL [facility] Albumin, CSF 10.9 8.0 - 42.0 mg/dL [facility] IgG Index, CSF 0.52 <0.70 [facility] Comment:The IgG Synthesis ra te, CSF and IgG index, CSF are twoformulae for estimating the amount of IgG produced inthe central nervous system. Evidence of increasedsynthesis of IgG provides support for the diagnosis ofmultiple sclerosis. Synthesis Rate IgG, CSF -4.3 -9.9 - 3.3 mg/24 h [facility] 03/16/2024 11:3 0 AM EST 03/16/2024 12:36 PM EST us Generic External Data Provider LAB BODY FLUIDS A ND STOOLS ORDERABLES Final Result Performing Organization Address City/State/[facility] Co de Phone Number [facility] [address] [place] [phone] * Gram stain (03/16/2024 11:30 AM EST) 03/16/2024 11:3 0 AM EST 03/16/2024 12:36 PM EST Comment:CSF Narrative [facility] - 03/19/2024 8:00 AM EST TUBE #3 Gram stain results: No polys No organisms seen TUBE #3 CSF Volume CSF volume mL CSF Volume 3 TUBE #3 Appearance Appearance Appearance Clear Appearance COLORLESS TUBE #3 CSF Culture No growth after 3 days. Specimen Source: Cerebrospinal Fluid Generic External Data Provider LAB MICROBIOLOGY - GENERAL ORDERABLES Final Result Performing Organization Address [facility] Co de Phone Number [facility] [address] [place] [address] [phone] * CSF cell count with differential (03/16/2024 11:30 AM EST) Appearance CSF CLEAR [facility] CSF Tube Number 4 [facility] CSF Volume 3.0 ML [facility] CSF Color COLORLESS [facility] CSF White Blood Cell 1 MM*3 [facility] Comment:Body Fluid WBC is a total nucleated cell count.When a differential is performed, the specimen isconcentrated by cytocentrifugation. This sometimes resultsin the number of cells in the differential being greaterthan the actual cell count performed on thenon-concentrated specimen. CSF Red Blood Cell 0 MM*3 [facility] Comment:The reference interv al(s) and other method performancespecifications are unavailable for this body fluid.Comparison of the result with concentration in the blood,serum, or plasma is recommended. LYMPHOCYTES %, CSF 100 % [facility] 03/16/2024 11:3 0 AM EST 03/16/2024 12:36 PM EST Generic External Data Provider LAB BODY FLUIDS A ND STOOLS ORDERABLES Final Result Performing Organization Address [facility] Co de Phone Number [facility] [address] [place] [address] [phone] * Glucose, CSF (03/16/2024 11:30 AM EST) CSF Appearance Clear, Colorless [facility] CSF Tube Number 1 [facility] Glucose CSF 65 mg/dL [facility] 03/16/2024 11:3 0 AM EST 03/16/2024 12:36 PM EST Generic External Data Provider LAB BODY FLUIDS A ND STOOLS ORDERABLES Final Result [facility] [address] [place] [address] [phone] * FL guided lumbar puncture LP (03/16/2024 11:20 AM EST) Anatomical Region Laterality Modality Abdomen Radiographic Jordyn ging 03/16/2024 11:2 0 AM EST Narrative 03/17/2024 5:04 PM EST ? [facility] ?[address] ?[place] [address] ? Fluoroscopy Report ? Signed ? Patient: Leonie,Simran ?MR#: [id number] ?? 2 ? : 1995 ?Acct:[id number] ? Age/Sex: 28 / F ?ADM Date: 03/16/24 ? Loc: HO.SSS ? Attending Dr: Robert Trimble MD ? Ordering Physician: Robert Trimble MD ?? Date of Service: 03/16/24 ?? Procedure(s): FL guided lumbar puncture LP ?? Accession Number(s): [id number] ? cc: Robert Trimble MD; Bijal Mejia [...] DD/ 1120 ? TD/TT: 03/16/24 1150 ? Sql Analyst: ? Procedure Note Donotuseinterpreter, Image - 03/17/2024 [place] [address] Fluoroscopy Report Signed Patient: Sabrina Hadley#: [id number] 2 : 1995Acct:[id number] Age/Sex: Date: 03/16/24 Loc: .[facility] Attending Dr: Robert Trimble MD Ordering Physician: Robert Trimble MD Date of Service: 03/16/24 Procedure(s): FL guided lumbar puncture LP Accession Number(s): [id number] cc: Robert Trimble MD; Bijal Mejia MD [...] by: Lionel Cheng MD 03/17/2024 05:01 PM [facility] Dictated By: Nahid Fernandez Signed By: <Electronically signed by Nahid Fernandez in OV> 03/17/24 1701 <Electronically signed by Lionel Cheng MD in OV> 03/17/24 1704 DD/ 1120 TD/TT: 03/16/24 1150 Sql Analyst: [facility] External Provider IMG FLU OROSCOPY PROCEDURES Final Result * HCG, Qualitative, Urine (03/16/2024 9:45 AM EST) Urine NEGATIVE NEGATIVE [facility] Comment:This test was develo ped to detect early . Falsenegative results may occur after the 5th - 7th week ofpregnancy when using this test method. If clinicallyindicated, consider a serum hCG. 03/16/2024 9:45 AM EST 03/16/2024 10:06 AM EST Generic External Data Provider LAB URINE ORDERAB LES Final Result [facility] [address] [place] [phone] * (ABNORMAL) CBC auto differential (03/14/2024 2:05 PM EST) White Blood Count 10.2 4.8 - 10.8 X10*3/uL [facility] Red Blood Count 4.42 4.20 - 5.50 X10*6/uL [facility] Hemoglobin 10.2(L) 12.0 - 16.0 g/dl [facility] Hematocrit 34.2(L) 37.0 - 47.0 % [facility] Mean Corpuscular Volume 77.4(L) 80.0 - 98.0 fL [facility] Mean Corpuscular Hemoglobin 23.1(L) 27.0 - 33.0 pg [facility] Mean Corpuscular HGB Conc 29.8(L) 31.0 - 35.0 g/dl [facility] Red Cell Distribution Width 17.8(H) 11.0 - 16.0 % [facility] Platelet Count 388 160 - 400 X10*3/uL [facility] Mean Platelet Volume 10.0 9.4 - 12.3 fL [facility] Neutrophils Percent Auto 60.7 45 - 73 % [facility] Imm Gran Pct Auto 0.3 0.0 - 0.4 % [facility] Lymphocytes Percent Auto 29.8 20 - 40 % [facility] Monocytes Percent Auto 5.7 2 - 11 % [facility] Eosinophils Percent Auto 3.0 0 - 4 % [facility] Basophils Percent Auto 0.5 0 - 2 % [facility] NRBC Pct Auto 0.0 0.0 - 0.2 /100WBC [facility] Neutrophils Absolute Auto 6.2 2.0 - 8.3 x10*3/uL [facility] Imm Gran Abs Auto 0.03 0.00 - 0.03 X10*3/uL [facility] Lymphocytes Absolute Auto 3.0 1.2 - 4.9 X10*3/uL [facility] Monocytes Absolute Auto 0.6 0.1 - 1.2 X10*3/uL [facility] Eosinophils Absolute Auto 0.3 0.0 - 0.4 X10*3/uL [facility] Basophils Absolute Auto 0.1 0.0 - 0.2 X10*3/uL [facility] NRBC Abs Auto 0.000 0.0 - 0.012 X10*3/uL [facility] Blood Venous blood specimen / Unknown 03/14/2024 2:05 PM EST 03/14/2024 4:20 PM EST us Bijal Mejia MD LAB BLOOD ORDERABLES Final Resul t [facility] [address] [place] [phone] [phone] * (ABNORMAL) Reticulocyte Count (03/14/2024 2:05 PM EST) Reticulocytes Absolute 0.069 0.026 - 0.095 X10*6/uL [facility] Immature Retic Fraction 26.7(H) 3.0 - 15.9 % [facility] Retic HGB Equivalent 21.8(L) 30.0 - 35.0 pg [facility] Reticulocyte Percent 1.6 0.5 - 1.8 % [facility] Blood Venous blood specimen / Unknown 03/14/2024 2:05 PM EST 03/14/2024 4:20 PM EST us Bijal Mejia MD LAB BLOOD ORDERABLES Final Resul t Performing Organization Address [facility] Co de Phone Number [facility] [address] [place] [phone] * (ABNORMAL) Lipid Panel with Reflex to Direct LDL (01/27/2023 9:58 AM EST) Triglycerides 83 <150 mg/dL [facility] Comment:Desirable Triglyceri de: less than 150 mg/dLBorderline High Triglyceride 150-199 mg/dLHigh Triglyceride: 200-499 mg/dLVery High Triglyceride: greater than or equal to 5OO mg/dL Cholesterol 150 <200 mg/dL [facility] Comment:Desirable Cholestero l: less than 200 mg/dLBorderline High Cholesterol: 200-239 mg/dLHigh Cholesterol: greater than 239 mg/dL LDL Cholesterol Calculated 95 <100 mg/dL [facility] Comment:Desirable LDL: less than 100 mg/dLNear Optimal/Above Optimal LDL: 110- 129 mg/dLBorderline High LDL: 130-159 mg/dLHigh LDL: 160-189 mg/dLVery High LDL: greater than or equal to 190 mg/dL HDL Cholesterol 39(L) >40 mg/dL [facility] Comment:Desirable HDL: great er than 40 mg/dL Note: This HDL assay may give artificially low results in patients with liver disease. Blood 01/27/2023 9:58 AM EST 01/27/2023 11:12 AM EST us Bijal Mejia MD LAB BLOOD ORDERABLES Final Resul t Performing Organization Address [facility] Co de Phone Number [facility] [address] [place] [phone] * HEPATITIS C AB W/REFL TO [...] a test for HCV RNA (test code 88214) is suggested. ?? For additional information please refer to http://Jobaline.MediaPass/faq/UEB78q8 (This link is being provided for informational/ educational purposes only.) ?? 07/18/2021 us Bijal Mejia MD HISTORICAL/NON ORDERABLE LABS Fi nal Result [facility] [address] * HIV 1/2 ANTIGEN/ANTIBODY,FOURTH GENERATION W/RFL [...] ? For additional information please refer to http://Jobaline.MediaPass/faq/IBV619 (This link is being provided for informational/ educational purposes only.) ? The performance of this assay has not been clinically validated in patients less than 2 years old. ?? 07/18/2021 us Bijal Mejia MD LAB BLOOD ORDERABLES Final Resul t [facility] [address] [place] [address], from Last 3 Months or Most Recently Relevant to Health Maintenance Insurance [facility] Care Teams Financial Planning Assistant Relationship Specialty Start Date End Date Bijal Mejia MD [address] [place] [address] PCP - General Family Medicine 02/16/18 Puma Sorto FNP [address] [place] [address] Nurse Practitioner Family Medicine 01/06/23
--- OUTSIDE RECORDS SUMMARY | 2024-06-10 15:21 | XMS_ITS | Encounter Summary ---
Author Organization [employer] Address [address] [place] [address] 7 [place] [address] Care Team Providers Care Almond Huller Name Role Phone Bijal Mejia MD Primary Care Provider [phone] Puma Sorto Unavailable Unavailable Encounter Details Date Type Department Care Team (Late st Contact Info) Description 02/02/2023 Orders Only [facility] [address] [place], [place] [phone] Bijal Mejia MD [address] [place], [place] [phone] Anemia, unspecified type (Primary Dx) Social History [...] Description 08/03/2024 10:15 AM EDT Office Visit [facility] [address] [place], [place] [phone] Bijal Mejia MD [address] [place], [place] [phone] documented as of this encounter Procedures Procedure [...] Vitamin B12 443 200 - 900 pg/mL [facility] Comment:NORMAL 200-900 PG/ML INDETERMINATE 160-199 PG/ML DEFICIENT < 160 PG/ML Folate 8.8 > or = 4.0 ng/mL [facility] Comment:Reference Values:> o r = 4.0 ng/mL< 4.0 ng/mL suggests folate deficiency Methotrexate, aminopterin and folinic acid(leucovorin) are chemotherapeutic agents whose molecularstructures are similar to folate; therefore, the Architectfolate assay cannot be used for patients using these drugs. 02/27/2023 11:5 2 AM EST 02/27/2023 11:52 AM EST Bijal Mejia MD LAB BLOOD ORDERABLES Final Resul t Performing Organization Address [facility] de Phone Number [facility] [address] [place] [phone] * (ABNORMAL) Iron And Total Iron Binding Capacity (02/27/2023 11:52 AM EST) Iron 45 30 - 160 mcg/dL [facility] Comment:Moderate Hemolysis Total Iron Binding Capacity 325 228 - 428 mcg/dL [facility] Percent Iron Saturation 14(L) 15 - 50 % [facility] Unsaturated Iron Binding 280 ug/dL [facility] Blood Venous blood specimen / Unknown 02/27/2023 11:52 AM EST 02/27/2023 11:52 AM EST Bijal Mejia MD LAB BLOOD ORDERABLES Final Resul t Performing Organization Address [facility] Phone Number [facility] [address] [place] [phone] * Ferritin (02/27/2023 11:52 AM EST) Ferritin 15 10 - 122 ng/mL [facility] Blood Venous blood specimen / Unknown 02/27/2023 11:52 AM EST 02/27/2023 11:52 AM EST Bijal Mejia MD LAB BLOOD ORDERABLES Final Resul t Performing Organization Address [facility] Phone Number [facility] [address] [place] [phone] documented in this encounter Visit Diagnoses Diagnosis Anemia, unspecified type- Primary documented in this encounter Additional Health Concerns Assessment Noted Time PHQ-9 Depression Total Score: 3 01/23/20 3:38 PM EST documented as of this encounter Care Teams Almond Huller Relationship Specialty Start Date End Date Bijal Mejia MD [address] [place] [address] PCP - General Family Medicine 02/16/18 Puma Sorto FNP [address] [place] [address] Nurse Practitioner Family Medicine 01/06/23 documented as of this encounter
--- OUTSIDE RECORDS SUMMARY | 2024-06-10 15:21 | XMS_ITS | Encounter Summary ---
Author Organization [employer] Address [address] [place] [address] Care Team Providers Care Track Repair Laborer Name Role Phone Bijal Mejia MD Primary Care Provider [phone] Puma Sorto Unavailable Unavailable Encounter Details Date Type Department Care Team (Late Contact Info) Description 09/11/2022 Orders Only [facility] & PEDS [address] [place], [place] [phone] Zoya Maldonado LPN Social History Tobacco Use [...] Description 08/03/2024 10:15 AM EDT Office Visit [facility] [address] [place], [place] [phone] Bijal Mejia MD [address] [place], [place] [phone] documented as of this encounter Visit Diagnoses Not on filedocumented in this encounter Additional Health Concerns Assessment Noted Time PHQ-9 Depression Total Score: 4 03/18/19 23 1:44 PM EST documented as of this encounter Care Teams Track Repair Laborer Relationship Specialty Start Date End Date iBjal Mejia MD [address] [place] [address] PCP - General Family Medicine 02/16/18 Pmua Sorto FNP [address] [place] [address] Nurse Practitioner Family Medicine 01/06/23 documented as of this encounter
--- OUTSIDE RECORDS SUMMARY | 2024-06-10 15:21 | XMS_ITS | Encounter Summary ---
Author Organization [employer] Address [address] [place] [address] [place] [address] Care Team Providers Care Powerbuilder Name Role Phone Bijal Mejia MD Primary Care Provider [phone] Puma Sorto Unavailable Unavailable Reason for Referral * Imaging (Routine) - Closed Specialty Diagnoses / Procedures Referred By Contac t Referred To Contact Radiology Diagnoses Chronic nonintractable headache, unspecified headache type Papilledema Procedures MR Brain w/o Contrast Bijal Mejia MD [address] [place] [address] Phone: tel: fax: [facility] [address] [place] [address] Phone: tel: fax: Referral ID Status Reason Start Date Expiration Date Visits Re quested Visits Authorized [id number] Closed 07/22/2023 07/21/2024 1 1 Encounter Details Date Type Department Care Team (Late st Contact Info) Description 07/22/2023 Orders Only [facility] MEDICINE [address] [place], [place] [phone] Bijal Mejia MD [address], [place] [phone] Anemia, unspecified type (Primary Dx); Chronic nonintractable [...] Description 08/03/2024 10:15 AM EDT Office Visit [facility] MEDICINE [address] [place] [address] Bijal Mejia MD [address] [place] [address] documented as of this encounter Procedures Procedure [...] Vitamin B12 486 200 - 900 pg/mL [facility] Comment:NORMAL 200-900 PG/ML INDETERMINATE 160-199 PG/ML DEFICIENT < 160 PG/ML Folate 4.5 > or = 4.0 ng/mL [facility] Comment:Reference Values:> o r = 4.0 ng/mL< 4.0 ng/mL suggests folate deficiency Methotrexate, aminopterin and folinic acid(leucovorin) are chemotherapeutic agents whose molecularstructures are similar to folate; therefore, the Architectfolate assay cannot be used for patients using these drugs. 07/29/2023 10:4 3 AM EDT 07/29/2023 11:15 AM EDT us Bijal Mejia MD LAB BLOOD ORDERABLES Final Resul t [facility] [address] [place] [phone] * (ABNORMAL) Iron And Total Iron Binding Capacity (07/29/2023 10:43 AM EDT) Iron 24(L) 30 - 160 mcg/dL [facility] Total Iron Binding Capacity 341 228 - 428 mcg/dL [facility] Percent Iron Saturation 7(L) 15 - 50 % [facility] Unsaturated Iron Binding 317 ug/dL [facility] Blood Venous blood specimen / Unknown 07/29/2023 10:43 AM EDT 07/29/2023 11:15 AM EDT Bijal Mejia MD LAB BLOOD ORDERABLES Final Resul t Performing Organization Address City/[facility]/ZIP Co de Phone Number [facility] [address] [place] [phone] * (ABNORMAL) Ferritin (07/29/2023 10:43 AM EDT) Pathologist [facility] Ferritin 8(L) 10 - 122 ng/mL [facility] Blood Venous blood specimen / Unknown 07/29/2023 10:43 AM EDT 07/29/2023 11:15 AM EDT Bijal Mejia MD LAB BLOOD ORDERABLES Final Resul t Performing Organization Address [facility] Co de Phone Number [facility] [address] [place] [phone] * (ABNORMAL) CBC auto differential (07/29/2023 10:43 AM EDT) White Blood Count 12.1(H) 4.8 - 10.8 X10*3/uL [facility] Red Blood Count 4.28 4.20 - 5.50 X10*6/uL [facility] Hemoglobin 9.8(L) 12.0 - 16.0 g/dl [facility] Hematocrit 33.1(L) 37.0 - 47.0 % [facility] Mean Corpuscular Volume 77.3(L) 80.0 - 98.0 fL [facility] Mean Corpuscular Hemoglobin 22.9(L) 27.0 - 33.0 pg [facility] Mean Corpuscular HGB Conc 29.6(L) 31.0 - 35.0 g/dl [facility] Red Cell Distribution Width 18.6(H) 11.0 - 16.0 % [facility] Platelet Count 350 160 - 400 X10*3/uL [facility] Mean Platelet Volume 10.0 9.4 - 12.3 fL [facility] Neutrophils Percent Auto 58.5 45 - 73 % [facility] Imm Gran Pct Auto 0.4 0.0 - 0.4 % [facility] Lymphocytes Percent Auto 29.8 20 - 40 % [facility] Monocytes Percent Auto 6.0 2 - 11 % [facility] Eosinophils Percent Auto 4.7(H) 0 - 4 % [facility] Basophils Percent Auto 0.6 0 - 2 % [facility] NRBC Pct Auto 0.0 0.0 - 0.2 /100WBC [facility] Neutrophils Absolute Auto 7.1 2.0 - 8.3 x10*3/uL [facility] Imm Gran Abs Auto 0.05(H) 0.00 - 0.03 X10*3/uL [facility] Lymphocytes Absolute Auto 3.6 1.2 - 4.9 X10*3/uL [facility] Monocytes Absolute Auto 0.7 0.1 - 1.2 X10*3/uL [facility] Eosinophils Absolute Auto 0.6(H) 0.0 - 0.4 X10*3/uL [facility] Basophils Absolute Auto 0.1 0.0 - 0.2 X10*3/uL [facility] NRBC Abs Auto 0.000 0.0 - 0.012 X10*3/uL [facility] Blood Venous blood specimen / Unknown 07/29/2023 10:43 AM EDT 07/29/2023 11:15 AM EDT us Bijal Mejia MD LAB BLOOD ORDERABLES Final Resul t [facility] [address] [place] [phone] * Comprehensive Metabolic Panel (07/29/2023 10:43 AM EDT) Sodium 139 135 - 145 mmol/L [facility] Potassium 3.7 3.3 - 5.1 mmol/L [facility] Chloride 105 96 - 108 mmol/L [facility] Carbon Dioxide 26 22 - 29 mmol/L [facility] Anion Gap 12 12 - 20 [facility] Urea Nitrogen (BUN) 11 9 - 16 mg/dL [facility] Creatinine, Serum 0.65 0.5 - 1.4 mg/dL [facility] Estimated Glomerular Filt Rate >60 [facility] Comment:NOTE: For -Am erican individuals, multiply the result by 1.210.Chronic Kidney Disease: Estimated GFR < 60 mL/min/1.81l7Amxmwo Kidney Disease: Estimated GFR < 15 mL/min/1.73m2 Glucose 102 60 - 115 mg/dL [facility] Calcium 9.5 8.4 - 10.2 mg/dL [facility] Bilirubin, Total 0.3 0.0 - 1.0 mg/dL [facility] Aspartate Amino Transferase 17 5 - 31 U/L [facility] Alanine Aminotransferase 26 0 - 31 U/L [facility] Total Protein 7.9 6.5 - 8.0 g/dL [facility] Albumin Level 3.9 3.5 - 5.0 g/dL [facility] Alkaline Phosphatase 95 39 - 117 U/L [facility] Blood Venous blood specimen / Unknown 07/29/2023 10:43 AM EDT 07/29/2023 11:15 AM EDT Bijal Mejia MD LAB BLOOD ORDERABLES Final Resul t [facility] [address] [place] [phone] * MR Brain w/o Contrast (07/02/2023) [...] documented as of this encounter Care Teams Powerbuilder Relationship Specialty Start Date End Date Bijal Mejia MD [address] [place] [address] PCP - General Family Medicine 02/16/18 Puma Sorto FNP [address] [place] [address] Nurse Practitioner Family Medicine 01/06/23 documented as of this encounter
== END 2024-06-10 14:41 | disposition home or self-care (01) ==
LOC: HO.US 14:40
PROVIDERS: PCP Family Medicine; Visit Provider Obstetrics & Gynecology
DX: N93.9 Abnormal uterine and vaginal bleeding, unspecified (principal)
CPT/HCPCS: 76830; 76856

== ENCOUNTER → 2024-06-10 14:42 | Outpatient (BNV) | payer OTHER, SELFPAY | PROVIDERS: PCP Family Medicine; Visit Provider Radiology Diagnostic Radiology | DX: N93.9 Abnormal uterine and vaginal bleeding, unspecified (principal) | CPT/HCPCS: 76830; 76856; 93975 ==

== ENCOUNTER 2024-06-30 11:30 | Outpatient (AMB) | payer OTHER, SELFPAY ==
--- NOTE | 2024-06-30 11:31 | MHC.OFFVIS ---
Vital Signs 06/30/24 11:37 Height 5 ft 1 in Weight 265 lb BMI 50.1 Intake Visit Reasons: Ultrasound Results Allergies sulfamethoxazole [From BACTRIM] Allergy (Mild, Verified 05/10/24 13:28) LIVER PROBLEMS trimethoprim [From BACTRIM] Allergy (Mild, Verified 05/10/24 13:28) LIVER PROBLEMS HPI Comments Details: The patient is presenting for follow-up to discuss the results of her abnormal uterine bleeding workup and options of treatment. The following workup was done.: H&H= 12.2/40.5 TSH=0.1, normal free T4 hCG, GC and chlamydia were negative. Co testing was done was negative. Pelvic ultrasound showed the following: Anteverted uterus is 9.1 cm length. Normal myometrium. Endometrium 14 mm thickness. Right ovary 2.3 x 2.1 x 1.9 cm. Left ovary 2.9 x 1.8 x 3.0 cm. Normal color Doppler with arterial/venous spectral tracing of both ovaries. No free fluid PFSH Medical History Intracranial hypertension Bipolar disease, chronic Thyroid disease GERD (gastroesophageal reflux disease) Asthma Anxiety Hemorrhoids with complication Surgical History No pertinent past surgical history Social History Household Members: Family Alcohol intake: current Alcohol intake frequency: holidays/special occasions only Patient Tobacco Use Status: Never used Tobacco service: No Current occupational status: student Female Reproductive History Menstrual Age of Menarche: 10 Review of Systems Const All systems reviewed & are unremarkable except as noted in HPI and below Reports as per HPI and Reports no additional complaints GI Reports no additional complaints Reports no additional complaints Assessment & Plan Assessment & Plan (1) Abnormal uterine bleeding (AUB): Comment: History of intracranial hypertension Code(s): N93.9 - Abnormal uterine and vaginal bleeding, unspecified Category: Medical Plan: Discussed with the patient the results of the work up done and options of treatment. All pros, cons, risks and benefits if each option was discussed with the patient . Will wait for normalization of TSH after adjustment of the levothyroxine dose and if menstrual cycles are still irregular will proceed with possible EMB in further management. Instructions given the patient to call in case DUB persists within 3 months. All questions answered, the patient verbalized understanding (2) Abnormal TSH: Code(s): R79.89 - Other specified abnormal findings of blood chemistry Category: Medical Plan: Discussed with the patient the results of the TSH being suppressed with normal free T4, the patient will contact her PCP for further management Coding Level of Care Code Est Pt Level 3 (84175) Diagnoses Abnormal uterine bleeding (AUB) N93.9 Abnormal TSH R79.89
[2024-06-30 11:37] VITALS: BMI 50.1
--- OUTSIDE RECORDS SUMMARY | 2024-06-30 12:36 | XMS_ITS | Encounter Summary ---
Author Organization [employer] Address [address] [place] [address] 7 [place] [address] Care Team Providers Care Core Mounter Name Role Phone Bijal Mejia MD Primary Care Provider [phone] Puma Sorto Unavailable Unavailable Encounter Details Date Type Department Care Team ([facility] st Contact Info) Description 02/02/2023 Orders Only [facility] MEDICINE [address] [place], [place] [phone] Bijal Mejia MD [address] [place], [place] [phone] Anemia, unspecified type (Primary Dx) Social History [...] Female 02/20/2022 12:34 PM EST Sexual Orientation Straight 06/22/2024 2: 41 PM EDT Sexual Orientation Choose not to disclose 2024 2:41 PM EDT documented as of this encounter Plan of Treatment Upcoming Encounters Date Type Department Care Team (Late st Contact Info) Description 07/04/2024 3:30 PM EDT Office Visit [facility] MEDICINE [address] [place] [phone] Biajl Mejia MD [address] [place] [address] [phone] 08/03/2024 10:15 AM EDT Office Visit [facility] MEDICINE [address] [place] [phone] Bijal Mejia MD [address] [place] [address] [phone] documented as of this encounter Procedures Procedure [...] Vitamin B12 443 200 - 900 pg/mL [facility] Comment:NORMAL 200-900 PG/ML INDETERMINATE 160-199 PG/ML DEFICIENT < 160 PG/ML Folate 8.8 > or = 4.0 ng/mL [facility] Comment:Reference Values:> o r = 4.0 ng/mL< 4.0 ng/mL suggests folate deficiency Methotrexate, aminopterin and folinic acid(leucovorin) are chemotherapeutic agents whose molecularstructures are similar to folate; therefore, the Architectfolate assay cannot be used for patients using these drugs. 02/27/2023 11:5 2 AM EST 02/27/2023 11:52 AM EST us Bijal Mejia MD LAB BLOOD ORDERABLES Final Resul t Performing Organization Address [facility] Co de Phone Number [facility] [address] [place] [phone] * (ABNORMAL) Iron And Total Iron Binding Capacity (02/27/2023 11:52 AM EST) Iron 45 30 - 160 mcg/dL [facility] Comment:Moderate Hemolysis Total Iron Binding Capacity 325 228 - 428 mcg/dL [facility] Percent Iron Saturation 14(L) 15 - 50 % [facility] Unsaturated Iron Binding 280 ug/dL [facility] Blood Venous blood specimen / Unknown 02/27/2023 11:52 AM EST 02/27/2023 11:52 AM EST us Bijal Mejia MD LAB BLOOD ORDERABLES Final Resul t Performing Organization Address [facility] Co de Phone Number [facility] [address] [place] [phone] * Ferritin (02/27/2023 11:52 AM EST) Ferritin 15 10 - 122 ng/mL [facility] Blood Venous blood specimen / Unknown 02/27/2023 11:52 AM EST 02/27/2023 11:52 AM EST Bijal Mejia MD LAB BLOOD ORDERABLES Final Resul t Performing Organization Address City/[facility] Co de Phone Number [facility] [address] [place] [phone] documented in this encounter Visit Diagnoses Diagnosis Anemia, unspecified type- Primary documented in this encounter Additional Health Concerns Assessment Noted Time PHQ-9 Depression Total Score: 3 01/23/20 23 3:38 PM EST documented as of this encounter Care Teams Core Mounter Relationship Specialty Start Date End Date Bijal Mejia MD [address] [place] [phone] PCP - General Family Medicine 02/16/18 Puma Sorto FNP [address] [place] [phone] Nurse Practitioner Family Medicine 01/06/23 documented as of this encounter
--- OUTSIDE RECORDS SUMMARY | 2024-06-30 12:36 | XMS_ITS | Encounter Summary ---
Author Organization [employer] Address [address] [place] [address] Care Team Providers Care Power Shovel Engineer Name Role Phone Bijal Meija MD Primary Care Provider [phone] Puma Sorto Unavailable Unavailable Reason for Visit * Reason Onset Date Comments Med Change Request Prior Authorization 01/26/2023 Encounter Details Date Type Department Care Team ([facility] st Contact Info) Description 01/26/2023 Refill [facility] MEDICINE [address], [place] [phone] Bijal Mejia MD [address] [place] [address] Social History Tobacco Use Types Packs/Day Years [...] EST CHACHA req for Asmanex submitted through [facility]; awaiting decision. documented in this encounter Plan of Treatment Upcoming Encounters Date Type Department Care Team (Late st Contact Info) Description 07/04/2024 3:30 PM EDT Office Visit [facility] MEDICINE [address] [place] [phone] Bijal Mejia MD [address] [place] [phone] 08/03/2024 10:15 AM EDT Office Visit [address] [address] Bijal Mejia MD [address] [place] [phone] documented as of this encounter Visit Diagnoses Not on filedocumented in this encounter Additional Health Concerns Assessment Noted Time PHQ-9 Depression Total Score: 3 01/23/20 23 3:38 PM EST documented as of this encounter Care Teams Power Shovel Engineer Relationship Specialty Start Date End Date Bijal Mejia MD [address] [place] [phone] PCP - General Family Medicine 02/16/18 Puma Sorto FNP [address] [place] [address] Nurse Practitioner Family Medicine 01/06/23 documented as of this encounter
--- OUTSIDE RECORDS SUMMARY | 2024-06-30 12:37 | XMS_ITS | Clinical Summary ---
Author Organization [employer] Address [address] [place] [address] 7 [place] [address] Care Team Providers Care Elastic Tape Inserter Name Role Phone Bijal Mejia MD Primary Care Provider [phone] Puma Sorto Unavailable Unavailable Allergies Active Allergy [...] MOUTH TWICE A DAY NEEDED 4 Active Active Problems Problem Noted Date Diagnosed Date IBS (irritable bowel syndrome) 05/20/2024 Assessment & Plan (05/20/2024 2:55 PM EDT): -previously seeing GI - continue dicyclomine and simethicone prn Abnormal uterine bleeding (AUB) 05/16/2024 Assessment & Plan (05/20/2024 2:49 PM EDT): - iron deficiency anemia - cotest on 04/20/24 double negative - seen by Dr. Pimentel, [facility] DIRECTOR SOCIAL SERVICE. AUB full work-up started. Intracranial hypertension 01/28/2024 Assessment & Plan (05/16/2024 5:20 PM EDT): - Chronic headache - Dr. Hines, certified medical biller, examined her and patient had papilledema in July 2023 - MRI ion 08/02/23 was normal (done at [facility]) - Following up with neurologist Dr. Trimble Lumbar puncture by Dr. Trimble on 03/16/24. Opening pressure 34 cm H2O - Started on Diamox by Dr. Trimble - Pt will continue working on weight loss by life style modifications Assessment & Plan (01/28/2024 5:51 PM EST): - Chronic headache - Dr. Hines, certified medical biller, examined her and patient had papilledema in July 2023 - MRI ion 08/02/23 was normal (done at [facility]) - Evaluated by neurologist, Dr. Trimble, [...] PM EST): - evaluated by Dr. Waller, [facility] general surgery on 01/11/24 - internal and [...] hypertension / pseudotumor cerebri. - Following with [facility] Eye care and neurologist - Continue acetazolamide Assessment & Plan (01/28/2024 5:55 PM EST): - MRI normal in July 2023 - Following with [facility] Eye care Assessment & Plan (11/11/2023 10:17 [...] supplementation - receiving iron infusion currently at [facility] - Evaluated by DIRECTOR SOCIAL SERVICE for AUB - Up coming appointment with [...] retiring, patient will be transferred to new [facility] prescriber. She is aware that this clinician will not be an employee of [facility] and gives permission to share PHI. All [...] & Plan (01/27/2023 11:28 AM EST): - [facility] provider: Puma and [facility] clinician - most likely Bipolar Type II - Continue Aripiprazole 20 mg daily. (Puma has been entertaining an alternative that is metabolically-neutral medication such as Latuda and Geodon). - Continue Clonidine 0.1 mg at bedtime or BID - Pt is not taking Buspirone 30 mg prn - follow up with S providers as scheduled Assessment & Plan (01/22/2023 [...] organization. Date Type Department Care Team Description 06/10/2024 Orders Only [facility] External Provider, [facility] 06/10/[address] [address] Brenda Palm RN Appointment Confirmation 06/02/[address] [address] Bijal Mejia MD 05/30/[address] [address] Bijal Mejia MD Durable Medical Equipment (CPAP) 05/16/2024 3:45 PM EDT Office Visit [address] [address] Bijal Mejia MD Chronic nonintractable headache, unspecified [...] (BMI) of 50.0 to 59.9 in adult ([facility]); Mixed anxiety and depressive disorder; Mood disorder ([facility]); Hypothyroidism, unspecified type; Irritable bowel syndrome, unspecified type 05/16/2024 Travel 05/10/2024 Orders Only GENERIC EXTERNAL DATA DEPARTMENT Provider, Generic External Data 05/09/2024 Patient Outreach [facility] MEDICINE [address] [place] [address] Bijal Mejia MD Pre-visit Planning (SDOH Screening negative and Tobacco screening negative) 04/25/2024 Refill [facility] MEDICINE [address] [place] [address] Bijal Mejia MD 04/25/[address] [address] Bijal Mejia MD 04/22/2024 3:15 PM EST Office Visit [address] [address] Briana Galeas MD Chronic nonintractable headache, unspecified headache type (Primary Dx); Papilledema of both eyes 04/22/2024 Travel from Last 3 Months Immunizations Immunization Administration Dates Next Due DTP 11/03/1996, 6,1995,06/09 [...] is your housing situation today? I have magdalenaangel arroyo 01/28/[address] you [...] not to disclose 2024 2:41 PM EDT Last Filed Vital Signs Vital [...] Description 07/04/2024 3:30 PM EDT Office Visit [facility] MEDICINE [address] [place] [address] Bijal Mejia MD [address] [place] [address] 08/03/2024 10:15 AM EDT Office Visit [facility] MEDICINE [address] [place] [address] Bijal Mejia MD [address] [place] [address] Health Maintenance Due Date Last Done Comments [...] Completed 11/11/2023, , 11/04/2021, Additional history exists Meningococcal B Vaccine Aged Out No l onger eligible based on patient's age to complete this topic RSV under 20 months Aged Out No longe r eligible based on patient's age to complete this topic Rotavirus Vaccines Aged Out No longer eligible based on patient's age to complete this topic Procedures Procedure Name Priority Date/Time Associated Diagnosis Comments US PELVIS TRANSVAGINAL Routine 06/14/2024 5:22 PM EDT PAP SMEAR Routine 05/10/2024 2:01 PM EDT HPV DNA, LOW/HIGH RISK Routine 05/10/2024 2:01 PM EDT CHLAMYDIA/N. GONORRHOEAE RNA, TMA, UROGENITAL Routine 05/10/2024 1:02 PM EDT LIPID PANEL WITH REFLEX TO DIRECT LDL Routine 01/27/2023 9:58 AM EST Elevated blood pressure reading in office without diagnosis of hypertension ZZZ HISTORICAL HEPATITIS C AB W/REFL TO HCV RNA, QN, PCR Routine 07/18/2021 12:00 AM EDT HIV 1/2 ANTIGEN/ANTIBODY, FOURTH GENERATION W/RFL Routine 07/18/2021 12:00 AM EDT from Last 3 Months or Most Recently Relevant to Health Maintenance Results * US Pelvis Transvaginal (06/14/2024 5:22 PM EDT) Anatomical Region Laterality Modality Pelvis Ultrasound 06/14/2024 5:22 PM EDT Narrative 06/14/2024 5:24 PM EDT ? [facility] ?[address] ?[place] [address] ? Ultrasound Report ? Signed ? Patient: Hadley,Simran ?MR#: [id number] ?? 2 ? : 1995 ?Acct:[id number] ? Age/Sex: 29 / F ?ADM Date: 04/25/25 ? Loc: HO.US ? Attending Dr: Joe Pimentel MD ? Ordering Physician: Joe Pimentel MD ?? Date of Service: 06/10/24 ?? Procedure(s): US pelvic and transvaginal ?? Accession Number(s): [id number] ? cc: Bijal Mejia MD; Joe Pimentel MD ? CLINICAL HISTORY: N93.9 - Abnormal uterine and vaginal bleeding, unspecified ? US pelvis transabdominal and transvaginal with Doppler ? Comparison: None ? Findings: ?? Transabdominal scanning performed for overall anatomy. Transvaginal ?? scanning performed for additional detail. ? Anteverted uterus is 9.1 cm length. ?? Normal myometrium. ?? Endometrium 14 mm thickness. ? Right ovary 2.3 x 2.1 x 1.9 cm. ?? Left ovary 2.9 x 1.8 x 3.0 cm. ?? Normal color Doppler with arterial/venous spectral tracing of both ?? ovaries. ? No free fluid. ? IMPRESSION: ?? 1. Normal pelvic ultrasound with Doppler. No evidence of ovarian torsion. ? This document has been electronically signed by: Chano Giraldo MD on ?? 06/14/2024 17:22:26 ? Dictated By: ?Chano Giraldo MD ? Signed By: ?<Electronically signed by Chano Giraldo MD in OV> ? 06/14/24 1723 ? DD/ 1722 ? TD/TT: 06/14/24 1722 ? Tube Repairer: ? Procedure Note Raudel Frye - 06/14/2024 [place] [id number] Ultrasound Report Signed Patient: Sabrina Hadley#: [id number] 2 : 1995Acct:[id number] Age/Sex: M Date: 06/10/24 Loc: HO.US Attending Dr: Joe Pimentel MD Ordering Physician: Joe Pimentel MD Date of Service: 06/10/24 Procedure(s): US pelvic and transvaginal Accession Number(s): [id number] cc: Bijal Mejia MD; Joe Pimentel MD CLINICAL HISTORY: N93.9 - Abnormal uterine and vaginal bleeding,unspecified US pelvis transabdominal and transvaginal with Doppler Comparison: None Findings: Transabdominal scanning performed for overall anatomy. Transvaginal scanning performed for additional detail. Anteverted uterus is 9.1 cm length. Normal myometrium. Endometrium 14 mm thickness. Right ovary 2.3 x 2.1 x 1.9 cm. Left ovary 2.9 x 1.8 x 3.0 cm. Normal color Doppler with arterial/venous spectral tracing of both ovaries. No free fluid. IMPRESSION: 1. Normal pelvic ultrasound with Doppler. No evidence of ovarian torsion. This document has been electronically signed by: Chano Giraldo MD on 06/14/2024 17:22:26 Dictated By: Chano Giraldo MD Signed By: <Electronically signed by Chano Giraldo MD in OV> 06/14/24 1723 DD/ 1722 TD/TT: 06/14/24 1722 Tube Repairer: us [facility] External Provider IMG US PROCEDURES Final Result * HPV DNA, Low/High Risk (05/10/2024 2:01 PM EDT) HPV High Risk Negative Negative [facility] HPV Genotype 16 Negative Negative [facility] HPV Genotype 18 Negative Negative [facility] Comment:HPV testing performe d at [facility] (CLIA#[id number]), [address] [place] [address].Testing for HPV was performed using the Kandy [...] 2:01 PM EDT 05/11/2024 7:30 AM EDT Generic External Data Provider LAB BLOOD ORDERAB LES Final Result [facility] [address] [place] [phone] * Pap Smear (05/10/2024 2:01 PM EDT) 05/10/2024 2:01 PM EDT 05/11/2024 7:30 AM EDT Narrative [facility] - 05/16/2024 8:31 AM EDT ----- ------- Name: Simran Hadley ?Age/Sex: 29/F ? : 1995 Unit#: [id number] ?? Attend Dr: Joe Pimentel MD ?Re05/10/24 ?Status: DEP REF ? Location: HO.LNP ?Disch: ? ----- ------- SPEC : [id number] ? RECD: 05/11/24-729 ? STATUS: ??SOUT ? REQ NUM: [id number] ? JED: 05/10/24-1401 ? SUBM DR: Joe [...] Copies To: ?? Bijal Mejia MD ?? [facility] ?? [address] [facility] ?? [place] [address] ?? [phone] ?? Joe Pimentel MD ?? [facility] ?? [address] [facility] [address] ?? [place] [address] ?? [phone] ----- ------- Signed (signature on file) LEYLA Williamson (ASCP) 05/16/24 0831 ? ----- ------- ? END OF REPORT ? us Generic External Data Provider LAB CYTOLOGY BEVERLY BORJAS Final Result [facility] [address] [place] [address] [phone] * Chlamydia/N. Gonorrhoeae RNA, TMA, Urogenitial (05/10/2024 1:02 PM EDT) CT PCR NOT DETECTED Not Detect. [facility] Comment:A not detected test result does [...] psychologicalconsequences. NG PCR NOT DETECTED Not Detect. [facility] Comment:A not detected test result does [...] PM EDT 05/10/2024 3:08 PM EDT Narrative [facility] - 05/10/2024 6:33 PM EDT Vaginal us Generic External Data Provider LAB MICROBIOLOGY - GENERAL ORDERABLES Final Result Performing Organization Address [facility] Co de Phone Number [facility] [address] [place] [phone] * (ABNORMAL) Lipid Panel with Reflex to Direct LDL (01/27/2023 9:58 AM EST) Triglycerides 83 <150 mg/dL [facility] Comment:Desirable Triglyceri de: less than 150 mg/dLBorderline High Triglyceride 150-199 mg/dLHigh Triglyceride: 200-499 mg/dLVery High Triglyceride: greater than or equal to 5OO mg/dL Cholesterol 150 <200 mg/dL [facility] Comment:Desirable Cholestero l: less than 200 mg/dLBorderline High Cholesterol: 200-239 mg/dLHigh Cholesterol: greater than 239 mg/dL LDL Cholesterol Calculated 95 <100 mg/dL [facility] Comment:Desirable LDL: less than 100 mg/dLNear Optimal/Above Optimal LDL: 110- 129 mg/dLBorderline High LDL: 130-159 mg/dLHigh LDL: 160-189 mg/dLVery High LDL: greater than or equal to 190 mg/dL HDL Cholesterol 39(L) >40 mg/dL [facility] Comment:Desirable HDL: great er than 40 mg/dL Note: This HDL assay may give artificially low results in patients with liver disease. Blood 01/27/2023 9:58 AM EST 01/27/2023 11:12 AM EST us Bijal Mejia MD LAB BLOOD ORDERABLES Final Resul t Performing Organization Address City/[facility]/ZIP Co de Phone Number [facility] [address] [place] [address] [phone] * HEPATITIS C AB W/REFL TO HCV RNA, QN, PCR (07/18/2021 12:00 AM EDT) HEPATITIS C ANTIBODY NON-REACT RIMMA NON-REACT RIMMA [facility] INDEX 0.05 <1.00 [facility] Comment: ?? HCV antibody was non-reactive. There is no laboratory ?? evidence of HCV infection. ?? In most cases, no further action is required. However, if recent HCV exposure is suspected, a test for HCV RNA (test code 06280) is suggested. ?? For additional information please refer to http://[employer]Vox/faq/YRJ51s3 (This link is being provided for informational/ educational purposes only.) ?? 07/18/2021 Bijal Mejia MD HISTORICAL/NON ORDERABLE LABS Fi nal Result [facility] [address] * HIV 1/2 ANTIGEN/ANTIBODY,FOURTH GENERATION W/RFL (07/18/2021 12:00 AM EDT) HIV-1/2 ANTIGEN AND ANTIBODIES, 4TH GENERATION W/ REFLEX NON-REACT RIMMA NON-REACT RIMMA [facility] Comment: HIV-1 antigen and [...] ? For additional information please refer to http://[employer]Vox/faq/KCV203 (This link is being provided for informational/ educational purposes only.) ? The performance of this assay has not been clinically validated in patients less than 2 years old. ?? 07/18/2021 us Bijal Mejia MD LAB BLOOD ORDERABLES Final Resul t [facility] [address] [place] [address], from Last 3 Months or Most Recently Relevant to Health Maintenance Insurance [facility] < 65 [place] [id number] Care Teams Elastic Tape Inserter Relationship Specialty Start Date End Date Bijal Mejia MD [address] [place] [address] PCP - General Family Medicine 02/16/18 Puma Sorto FNP [address] [place] [address] Nurse Practitioner Family Medicine 01/06/23
--- OUTSIDE RECORDS SUMMARY | 2024-06-30 12:37 | XMS_ITS | Encounter Summary ---
Author Organization [employer] Address [address] [place] [address] Care Team Providers Care Mophead Trimmer And Wrapper Name Role Phone Bijal Mejia MD Primary Care Provider [phone] Puma Sorto Unavailable Unavailable Reason for Referral * Imaging (Routine) - Closed Specialty Diagnoses / Procedures Referred By Mina t Referred To Contact Radiology Diagnoses Chronic nonintractable headache, unspecified headache type Papilledema Procedures MR Brain w/o Contrast Bijal Mejia MD [address] [place] [address] Phone: tel: fax: [facility] [address] [place] [address] Phone: tel: fax: Referral ID Status Reason Start Date Expiration Date Visits Re quested Visits Authorized [id number] Closed 07/22/2023 07/21/2024 1 1 Encounter Details Date Type Department Care Team (Late st Contact Info) Description 07/22/2023 Orders Only [facility] [address] [place], [place] [phone] Bijal Mejia MD [address] [place] [address], [place] [phone] Anemia, unspecified type (Primary Dx); Chronic nonintractable [...] Description 07/04/2024 3:30 PM EDT Office Visit [facility] [address] [place] [address] Bijal Mejia MD [address] [place] [address] 08/03/2024 10:15 AM EDT Office Visit [facility] [address] [place] [address] Bijal Mejia MD [address] [place] [address] documented as of this encounter Procedures Procedure [...] Vitamin B12 486 200 - 900 pg/mL [facility] Comment:NORMAL 200-900 PG/ML INDETERMINATE 160-199 PG/ML DEFICIENT < 160 PG/ML Folate 4.5 > or = 4.0 ng/mL [facility] Comment:Reference Values:> o r = 4.0 ng/mL< 4.0 ng/mL suggests folate deficiency Methotrexate, aminopterin and folinic acid(leucovorin) are chemotherapeutic agents whose molecularstructures are similar to folate; therefore, the Architectfolate assay cannot be used for patients using these drugs. 07/29/2023 10:4 3 AM EDT 07/29/2023 11:15 AM EDT us Bijal Mejia MD LAB BLOOD ORDERABLES Final Resul t [facility] [address] [facility] [place] [address] [phone] * (ABNORMAL) Iron And Total Iron Binding Capacity (07/29/2023 10:43 AM EDT) Pathologist [facility] Iron 24(L) 30 - 160 mcg/dL [facility] Total Iron Binding Capacity 341 228 - 428 mcg/dL [facility] Percent Iron Saturation 7(L) 15 - 50 % [facility] Unsaturated Iron Binding 317 ug/dL [facility] Blood Venous blood specimen / Unknown 07/29/2023 10:43 AM EDT 07/29/2023 11:15 AM EDT Bijal Mejia MD LAB BLOOD ORDERABLES Final Resul t Performing Organization Address [facility]/ZIP Co de Phone Number [facility] [address] [place] [phone] * (ABNORMAL) Ferritin (07/29/2023 10:43 AM EDT) [facility] Ferritin 8(L) 10 - 122 ng/mL [facility] Blood Venous blood specimen / Unknown 07/29/2023 10:43 AM EDT 07/29/2023 11:15 AM EDT Bijal Mejia MD LAB BLOOD ORDERABLES Final Resul t Performing Organization Address City/[facility]/ZIP Co de Phone Number [facility] [address] [place] [phone] * (ABNORMAL) CBC auto differential (07/29/2023 10:43 AM EDT) [facility] White Blood Count 12.1(H) 4.8 - 10.8 X10*3/uL [facility] Red Blood Count 4.28 4.20 - 5.50 X10*6/uL [facility] Hemoglobin 9.8(L) 12.0 - 16.0 g/dl [facility] Hematocrit 33.1(L) 37.0 - 47.0 % [facility] Mean Corpuscular Volume 77.3(L) 80.0 - 98.0 fL [facility] Mean Corpuscular Hemoglobin 22.9(L) 27.0 - 33.0 pg [facility] Mean Corpuscular HGB Conc 29.6(L) 31.0 - 35.0 g/dl [facility] Red Cell Distribution Width 18.6(H) 11.0 - 16.0 % [facility] Platelet Count 350 160 - 400 X10*3/uL [facility] Mean Platelet Volume 10.0 9.4 - 12.3 fL [facility] Neutrophils Percent Auto 58.5 45 - 73 % [facility] Imm Gran Pct Auto 0.4 0.0 - 0.4 % [facility] Lymphocytes Percent Auto 29.8 20 - 40 % [facility] Monocytes Percent Auto 6.0 2 - 11 % [facility] Eosinophils Percent Auto 4.7(H) 0 - 4 % [facility] Basophils Percent Auto 0.6 0 - 2 % [facility] NRBC Pct Auto 0.0 0.0 - 0.2 /100WBC [facility] Neutrophils Absolute Auto 7.1 2.0 - 8.3 x10*3/uL [facility] Imm Gran Abs Auto 0.05(H) 0.00 - 0.03 X10*3/uL [facility] Lymphocytes Absolute Auto 3.6 1.2 - 4.9 X10*3/uL [facility] Monocytes Absolute Auto 0.7 0.1 - 1.2 X10*3/uL [facility] Eosinophils Absolute Auto 0.6(H) 0.0 - 0.4 X10*3/uL [facility] Basophils Absolute Auto 0.1 0.0 - 0.2 X10*3/uL [facility] NRBC Abs Auto 0.000 0.0 - 0.012 X10*3/uL [facility] Blood Venous blood specimen / Unknown 07/29/2023 10:43 AM EDT 07/29/2023 11:15 AM EDT us Bijal Mejia MD LAB BLOOD ORDERABLES Final Resul t Performing Organization Address City/[facility]/ZIP Co de Phone Number [facility] [address] [place] [phone] * Comprehensive Metabolic Panel (07/29/2023 10:43 AM EDT) Sodium 139 135 - 145 mmol/L [facility] Potassium 3.7 3.3 - 5.1 mmol/L [facility] Chloride 105 96 - 108 mmol/L [facility] Carbon Dioxide 26 22 - 29 mmol/L [facility] Anion Gap 12 12 - 20 [facility] Urea Nitrogen (BUN) 11 9 - 16 mg/dL [facility] Creatinine, Serum 0.65 0.5 - 1.4 mg/dL [facility] Estimated Glomerular Filt Rate >60 [facility] Comment:NOTE: For -Am erican individuals, multiply the result by 1.210.Chronic Kidney Disease: Estimated GFR < 60 mL/min/1.98x8Eyzged Kidney Disease: Estimated GFR < 15 mL/min/1.73m2 Glucose 102 60 - 115 mg/dL [facility] Calcium 9.5 8.4 - 10.2 mg/dL [facility] Bilirubin, Total 0.3 0.0 - 1.0 mg/dL [facility] Aspartate Amino Transferase 17 5 - 31 U/L [facility] Alanine Aminotransferase 26 0 - 31 U/L [facility] Total Protein 7.9 6.5 - 8.0 g/dL [facility] Albumin Level 3.9 3.5 - 5.0 g/dL [facility] Alkaline Phosphatase 95 39 - 117 U/L [facility] Blood Venous blood specimen / Unknown 07/29/2023 10:43 AM EDT 07/29/2023 11:15 AM EDT Bijal Mejia MD LAB BLOOD ORDERABLES Final Resul t Performing Organization Address City/[facility]/ZIP Co de Phone Number [facility] [address] [place] [address] [phone] * MR Brain w/o Contrast (07/02/2023) [...] documented as of this encounter Care Teams Mophead Trimmer And Wrapper Relationship Specialty Start Date End Date Bijal Mejia MD [address] [place] [phone] PCP - General Family Medicine 02/16/18 Puma Sorto FNP [address] [place] [address] Nurse Practitioner Family Medicine 01/06/23 documented as of this encounter
--- OUTSIDE RECORDS SUMMARY | 2024-06-30 12:37 | XMS_ITS | Encounter Summary ---
Author Organization [employer] Address [address] [place] [address] Care Team Providers Care Bowling Pin Refinisher Name Role Phone Bijal Mejia MD Primary Care Provider [phone] Puma Sorto Unavailable Unavailable Reason for Visit * Reason Onset Date Comments Appointment Request 04/20/2023 Encounter Details Date Type Department Care Team ([facility] st Contact Info) Description 04/20/2023 Telephone [facility] [address] [place] [address] Bijal Mejia MD [address] [place], [place] [phone] Appointment Request Social History Tobacco Use Types [...] Description 07/04/2024 3:30 PM EDT Office Visit [facility] [address] [place] [address] Bijal Mejia MD [address] [place] [address] 08/03/2024 10:15 AM EDT Office Visit [address] [address] Bijal Mejia MD [address] [place] [address] documented as of this encounter Visit Diagnoses Not on filedocumented in this encounter Additional Health Concerns Assessment Noted Time PHQ-9 Depression Total Score: 8 04/16/19 24 2:34 PM EST documented as of this encounter Care Teams Bowling Pin Refinisher Relationship Specialty Start Date End Date Bijal Mejia MD [address] [place] [address] PCP - General Family Medicine 02/16/18 Puma Sorto FNP [address] [place] [address] Nurse Practitioner Family Medicine 01/06/23 documented as of this encounter
--- OUTSIDE RECORDS SUMMARY | 2024-06-30 12:37 | XMS_ITS | Encounter Summary ---
Author Organization [employer] Address [address] [place] [address] Care Team Providers Care Customer Relations Specialist Name Role Phone Bijal Mejia MD Primary Care Provider [phone] Puma Sorto Unavailable Unavailable Encounter Details Date Type Department Care Team (Late Contact Info) Description 09/11/2022 Orders Only [facility] PEDS [address] [place] [address] Zoya Maldonado LPN Social History Tobacco Use [...] Encounters Date Type Department Care Team (Late Contact Info) Description 07/04/2024 3:30 PM EDT Office Visit [facility] MEDICINE [address] [place] [address] [phone] Bijal Mejia MD [address] [place] [address] [phone] 08/03/2024 10:15 AM EDT Office Visit [facility] [address] [place] [address] [phone] Bijal Mejia MD [address] [place] [address] documented as of this encounter Visit Diagnoses Not on filedocumented in this encounter Additional Health Concerns Assessment Noted Time PHQ-9 Depression Total Score: 4 03/18/19 23 1:44 PM EST documented as of this encounter Care Teams Customer Relations Specialist Relationship Specialty Start Date End Date Bijal Mejia MD [address] [place] [address] PCP - General Family Medicine 02/16/18 Puma Sorto FNP [address] [place] [address] Nurse Practitioner Family Medicine 01/06/23 documented as of this encounter
--- OUTSIDE RECORDS SUMMARY | 2024-06-30 12:37 | XMS_ITS | Encounter Summary ---
Author Organization [employer] Address [address] [place] [address] Care Team Providers Care Junior Project Manager Name Role Phone Bijal Mejia MD Primary Care Provider [phone] Puma Sorto Unavailable Unavailable Reason for Visit * Reason Onset Date Comments Med Refill 04/25/2024 Encounter Details Date Type Department Care Team ([facility] st Contact Info) Description 04/25/2024 Refill [facility] [address] [place], [place] [phone] Bijal Mejia MD [address] [place], [place] [phone] Social History Tobacco Use Types Packs/Day Years [...] Description 07/04/2024 3:30 PM EDT Office Visit [facility] [address] [place] [address] Bijal Mejia MD [address] [place] [address] 08/03/2024 10:15 AM EDT Office Visit [facility] [address] [place] [address] Bijal Mejia MD [address] [place] [address] documented as of this encounter Visit Diagnoses Not on filedocumented in this encounter Additional Health Concerns Assessment Noted Time PHQ-9 Depression Total Score: 7 07/30/19 24 1:24 PM EDT documented as of this encounter Care Teams Junior Project Manager Relationship Specialty Start Date End Date Bijal Mejia MD [address] [place] [address] PCP - General Family Medicine 02/16/18 Puma Sorto FNP [address] [place] [address] Nurse Practitioner Family Medicine 01/06/23 documented as of this encounter
--- OUTSIDE RECORDS SUMMARY | 2024-06-30 12:37 | XMS_ITS | Encounter Summary ---
Author Organization [employer] Address [address] [place] [address] Care Team Providers Care Admin Secretary Name Role Phone Bijal Mejia MD Primary Care Provider [phone] Puma Sorto Unavailable Unavailable Encounter Details Date Type Department Care Team (Late st Contact Info) Description 09/05/2022 Orders Only [facility] MEDICINE [address] [place] [address] [phone] Tara Amin LPN Social History Tobacco Use [...] Description 07/04/2024 3:30 PM EDT Office Visit [facility] [address] [place] [address] [phone] Bijal Mejia MD [address] [place] [address] [phone] 08/03/2024 10:15 AM EDT Office Visit [facility] [address] [place] [address] [phone] Bijal Mejia MD [address] [place] [address] documented as of this encounter Visit Diagnoses Not on filedocumented in this encounter Additional Health Concerns Assessment Noted Time PHQ-9 Depression Total Score: 4 03/18/19 23 1:44 PM EST documented as of this encounter Care Teams Admin Secretary Relationship Specialty Start Date End Date Bijal Mejia MD [address] [place] [address] PCP - General Family Medicine 02/16/18 Puma Sorto FNP [address] [place] [address] Nurse Practitioner Family Medicine 01/06/23 documented as of this encounter
--- OUTSIDE RECORDS SUMMARY | 2024-06-30 12:37 | XMS_ITS | Encounter Summary ---
Author Organization [employer] Address [address] [place] [address] 7 [place] [address] Care Team Providers Care Driver Starting Gate Name Role Phone Bijal Mejia MD Primary Care Provider [phone] Puma Sorto Unavailable Unavailable Encounter Details Date Type Department Care Team ([facility] st Contact Info) Description 07/29/2023 Orders Only [facility] [address] [place], [place] [phone] Bijal Mejia MD [address] [place], [place] [phone] Social History Tobacco Use Types Packs/Day Years [...] PM EDT documented as of this encounter Functional Status * Over the past 2 weeks, how often have you been bothered by any of the following problems? Question Answer Date of Assessment Author Patient Health Questionnaire -2 Score 0 07/30/2023 1:24 PM EDT Dawn Monsivais MA * If you checked off any problems on this questionnaire so far, Question Answer Date of Assessment Author How difficult have these problems made it for you to do your work, take care of things at home, or get along with other people? Somewhat difficult 07/30/2023 1:24 PM EDT Dawn Monsivais MA * Over the past 2 weeks, how often have you been bothered by any of the following problems? Question Answer Date of Assessment Author Little interest or pleasure in doing things Not at all 07/30/2023 1:24 PM EDT Caridad Monsivais MA Feeling down, depressed, or hopeless Not at all 07/30/2023 1:24 PM EDT Caridad Monsivais MA Trouble falling or staying asleep, or sleeping too much Nearly every day 07/30/2023 1:24 PM EDT Caridad Monsivais MA Feeling tired or having little energy More than half the days 07/30/2023 1:24 PM CONT Caridad Monsivais MA Poor appetite or overeating Not at all 07/30/2023 1:24 PM EDT Caridad Monsivais MA Feeling bad about yourself - or that you are a failure or have let yourself or your family down Not at all 07/30/2023 1:24 PM EDT Caridad Monsivais MA Trouble concentrating on things, such as reading the newspaper or watching television More than half the days 07/30/2023 1:24 PM EDT Caridad oMnsivais MA Moving or speaking so slowly that other people could have noticed? Or the opposite - being so fidgety or restless that you have been moving around a lot more than usual. Not at all 07/30/2023 1:24 PM EDT Caridad Monsivais MA Thoughts that you would be better off or hurting yourself in some way Not at all 07/30/2023 1:24 PM EDT Caridad Monsivais MA Patient Health Questionnaire-9 Score 7 07/30/2023 1:24 PM EDT Caridad Monsivais MA documented as of this encounter Plan of Treatment Upcoming Encounters Date Type Department Care Team (Late st Contact Info) Description 07/04/2024 3:30 PM EDT Office Visit [facility] [address] [place] [address] Bijal Mejia MD [address] [place] [address] 08/03/2024 10:15 AM EDT Office Visit [address] [address] Bijal Mejia MD [address] [place] [address] documented as of this encounter Visit Diagnoses Not on filedocumented in this encounter Additional Health Concerns Assessment Noted Time PHQ-9 Depression Total Score: 18 024 3:30 PM EDT documented as of this encounter Care Teams Driver Starting Gate Relationship Specialty Start Date End Date Bijal Mejia MD [address] [place] [address] PCP - General Family Medicine 02/16/18 Puma Sorto FNP [address] [place] [address] Nurse Practitioner Family Medicine 01/06/23 documented as of this encounter
--- OUTSIDE RECORDS SUMMARY | 2024-06-30 12:37 | XMS_ITS | Encounter Summary ---
Author Organization [employer] Address [address] [place] [address]397 Care Team Providers Care Quality Assurance Engineer Name Role Phone Bijal Mejia MD Primary Care Provider [phone] Puma Sorto Unavailable Unavailable Reason for Visit * Reason Onset Date Comments Med Refill 06/02/2024 Encounter Details Date Type Department Care Team ([facility] st Contact Info) Description 06/02/2024 Refill [facility] MED[facility]INE [address] [place], [place] [phone] Bijal Mejia MD [address] [place], [place] [phone] Social History Tobacco Use Types Packs/Day Years [...] Description 07/04/2024 3:30 PM EDT Office Visit [facility] [address] [place] [address] Bijal Mejia MD [address] [place] [address] 08/03/2024 10:15 AM EDT Office Visit [address] [address] Bijal Mejia MD [address] [place] [address] documented as of this encounter Visit Diagnoses Not on filedocumented in this encounter Additional Health Concerns Assessment Noted Time PHQ-9 Depression Total Score: 10 025 4:27 PM EDT documented as of this encounter Care Teams Quality Assurance Engineer Relationship Specialty Start Date End Date Bijal Mejia MD [address] [place] [address] PCP - General Family Medicine 02/16/18 Puma Sorto FNP [address] [place] [address] Nurse Practitioner Family Medicine 01/06/23 documented as of this encounter
== END 2024-06-30 12:04 | disposition home or self-care (01) ==
LOC: HO.HWS 11:30
PROVIDERS: PCP Family Medicine; Visit Provider Obstetrics & Gynecology
DX: N93.9 Abnormal uterine and vaginal bleeding, unspecified (principal); R79.89 Other specified abnormal findings of blood chemistry
CPT/HCPCS: 99213

== ENCOUNTER → 2024-06-30 11:30 | Outpatient (BNVA) | payer OTHER, SELFPAY | PROVIDERS: PCP Family Medicine; Visit Provider Obstetrics & Gynecology | DX: N93.9 Abnormal uterine and vaginal bleeding, unspecified (principal); R79.89 Other specified abnormal findings of blood chemistry | CPT/HCPCS: 99212 ==

== ENCOUNTER 2024-07-07 13:03 | Outpatient (REF) | payer OTHER, SELFPAY ==
[2024-07-07 14:16] LABS: TSH reflex Free T4 0.13 uIU/mL (0.32-4.0)
[2024-07-07 14:53] LABS: Free T4 (Free Thyroxine) 1.31 ng/dL (0.71-1.85)
== END 2024-07-07 13:04 | disposition home or self-care (01) ==
LOC: HO.LAB 13:03
PROVIDERS: PCP Family Medicine; Visit Provider Family Medicine
DX: E03.9 Hypothyroidism, unspecified (principal)
CPT/HCPCS: 36415; 84439; 84443

== ENCOUNTER 2024-09-16 13:19 | Outpatient (REF) | payer OTHER, SELFPAY ==
[2024-09-19 13:33] LABS: TS Negative Control Passed; TS Panel A 0; TS Panel B 0; TS Positive Control Passed; TSpotTB Negative (Negative)
== END 2024-09-16 13:20 | disposition home or self-care (01) ==
LOC: HO.HHCL 13:19
PROVIDERS: Visit Provider Family Medicine
DX: Z11.1 Encounter for screening for respiratory tuberculosis (principal); E03.9 Hypothyroidism, unspecified
CPT/HCPCS: 36415; 84443; 86481

== ENCOUNTER 2025-02-02 13:44 | Outpatient (AMB) | payer OTHER, MEDICAID, SELFPAY ==
--- NOTE | 2025-02-02 14:01 | A.OFFVIS_ITS ---
Intake Visit Reasons: 6m follow up migraine Allergies sulfamethoxazole (From [facility]) Allergy (Mild, Verified 08/04/24 13:38) LIVER PROBLEMS trimethoprim (From [facility]) Allergy (Mild, Verified 08/04/24 13:38) LIVER PROBLEMS HPI Comments Details: 29 years old right-handed woman with IIH ( With bipolar disorder, obesity, chronic headaches, papilledema on eye exam, and CSF opening pressure of 35cm with normal CSF ([place] [facility] [place] She is presenting for a follow-up visit for management of increased intracranial pressure. She has successfully lost weight, with her current weight being 235 pounds, down from 260 pounds at her last visit. A recent ophthalmology evaluation confirmed her optic discs are normal, with no swelling noted. However, visual field testing suggested a possible blind spot, although the patient believes this may be an artifact from her first time taking the test. She has been taking her prescribed medication for this condition. [facility] Medical History Intracranial hypertension Bipolar disease, chronic Thyroid disease GERD (gastroesophageal reflux disease) Asthma Anxiety Hemorrhoids with complication Surgical History No pertinent past surgical history Social History (System 08/04/24 @ 13:38 by Aurelia Hodge) Household Members: Family Alcohol intake: current Alcohol intake frequency: holidays/special occasions only Patient Tobacco Use Status: Never used Tobacco service: No Current occupational status: student Female Reproductive History Menstrual Age of Menarche: 10 Review of Systems Narrative - Constitutional: Reports weight loss. - Eyes: Reports a possible blind spot found on a recent eye exam. - Denies double vision or loss of vision. - Neurological: Denies headaches. Physical Exam Neuro Other: Mental Status: Alert and oriented to person, place, and time. Normal attention. Normal spontaneous speech, fluency, and comprehension. Cranial Nerves: CN II: Visual zimmerman full to confrontation, visual acuity intact. CN III, IV, : Pupils equal, round, reactive to light and accommodation. Extraocular movements are normal. CN V: Facial sensation is normal. CN VII: Facial movements symmetrical. CN VIII: Hearing intact to bedside conversation is normal. CN IX, X: Palate elevates symmetrically. CN XI: Shoulder shrug and head turn symmetrical. CN XII: Tongue midline without atrophy or fasciculations. Fundoscopy is normal. Extrapyramidal: Full facial expressions and blinking. No rigidity. Movements are appropriate w ith no tremor or abnormality. Speech: Normal; no dysarthria or tremor. Assessment & Plan Assessment & Plan (1) Idiopathic intracranial hypertension: Comment: [place] [facility] [place]: OP 35cm, WBCs 1, RBCs 0, Glu 65, Pro 23.9, OCB neg. Code(s): G93.2 - Benign intracranial hypertension Category: Medical Plan Impression recommendations: 29 years old woman with obesity and related idiopathic intracranial hypertension. Now her fundoscopy was normal and she was not having any symptoms. She has lost significant weight. She was reassured and educated and was advised to continue her journey to words losing more weight. I have stopped her acetazolamide, which can be restarted if needed. Her next eye appointment is in September and I would see her back afterwards or around that time. I discussed the patient's excellent progress with weight loss, emphasizing that it is the garcia to managing her condition. We reviewed her recent ophthalmology report, which showed normal optic discs without swelling. I advised her to stop taking acetazolamide, explaining that this medication can lose its effect over time and that giving the brain a rest from it is a good strategy. She was reassured that as long as she continues on this positive track with weight loss, her prognosis is excellent. I recommended she continue with her ophthalmology follow-up and scheduled a return visit to my clinic in six months. Coding Level of Care Code Est Pt Level 4 (23002) Diagnoses Idiopathic intracranial hypertension G93.2
--- OUTSIDE RECORDS SUMMARY | 2025-02-02 17:56 | XMS_ITS | Encounter Summary ---
Author Organization [employer] Address [address] [place] [address] Care Team Providers Care Profile Grinder Name Role Phone Bijal Mejia MD Primary Care Provider [phone] Puma Sorto Unavailable Unavailable Reason for Visit * Reason Onset Date Comments Appointment Request 04/20/2023 Encounter Details Date Type Department Care Team ([facility] st Contact Info) Description 04/20/2023 Telephone [facility] [address] [place], [place] [phone] Bijal Mejia MD [address] [place], [place] [phone] Appointment Request Social History Tobacco Use Types [...] 02/20/2022 12:34 PM EST Sexual Orientation Straight 12/02/2024 12 :06 PM EDT documented as of this encounter Miscellaneous Notes * Telephone Encounter - Kelly Sanders - 04/20/2023 8:59 AM EST Tc from pt requesting to r/s PAP appt . documented in this encounter Plan of Treatment Upcoming Encounters Date Type Department Care Team (Late st Contact Info) Description 02/07/2025 10:45 AM EST Office Visit [facility] [address] [place] [address] Bijal Mejia MD [address] [place] [address] 05/02/2025 3:30 PM EDT Office Visit [facility] OPTOM[facility]RY [address] [place] [address] Donny, Марина, OD [address] [place] [address] documented as of this encounter Visit Diagnoses Not on filedocumented in this encounter Additional Health Concerns Assessment Noted Time PHQ-9 Depression Total Score: 8 04/16/19 24 2:34 PM EST documented as of this encounter Care Teams Profile Grinder Relationship Specialty Start Date End Date Bijal Mejia MD [address] [place] [address]41 PCP - General Family Medicine 02/16/18 Puma Sorto FNP [address] [place] [address] Nurse Practitioner Family Medicine 01/06/23 documented as of this encounter
--- OUTSIDE RECORDS SUMMARY | 2025-02-02 17:56 | XMS_ITS | Encounter Summary ---
Author Organization [employer] Address [address] [place] [address]77 Care Team Providers Care Goldsmith Apprentice Name Role Phone Bijal Mejia MD Primary Care Provider [phone] Puma Sorto Unavailable Unavailable Encounter Details Date Type Department Care Team (Late Contact Info) Description 09/05/2022 Orders Only [facility] [address] [place], [place] [phone] Tara Amin LPN Social History Tobacco Use [...] Description 02/07/2025 10:45 AM EST Office Visit [facility] [address] [place] [address] Bijal Mejia MD 230 [place], [place] [phone] 05/02/2025 3:30 PM EDT Office Visit [facility] OPT[facility] [address] [place] [address] Марина Hines, OD 230 [place], [place] [phone] documented as of this encounter Visit Diagnoses Not on filedocumented in this encounter Additional Health Concerns Assessment Noted Time PHQ-9 Depression Total Score: 4 03/18/19 23 1:44 PM EST documented as of this encounter Care Teams Goldsmith Apprentice Relationship Specialty Start Date End Date Bijal Mejia MD 230 [place] [address] PCP - General Family Medicine 02/16/18 Puma Sorto FNP [address] [place] [address] Nurse Practitioner Family Medicine 01/06/23 documented as of this encounter
--- OUTSIDE RECORDS SUMMARY | 2025-02-02 17:56 | XMS_ITS | Encounter Summary ---
Author Organization [employer] Address [address] [place] [address] [place] [address] Care Team Providers Care Fire Production Operator Name Role Phone Bijal Mejia MD Primary Care Provider [phone] Puma Sorto Unavailable Unavailable Reason for Visit * Reason Comments Med Refill Encounter Details Date Type Department Care Team (Late st Contact Info) Description 07/02/2024 Refill [facility] MED[facility]INE [address] [place], [place] [phone] Bijal Mejia MD [address] [place], [place] [phone] Social History Tobacco Use Types Packs/Day Years [...] Description 02/07/2025 10:45 AM EST Office Visit [facility] MEDICINE [address] [place] [address] Bijal Mejia MD [address] [place] [address] 05/02/2025 3:30 PM EDT Office Visit [facility] OPTOMETRY [address] [place] [address] Donny, Марина, OD [address] [place] [address] documented as of this encounter Visit Diagnoses Not on filedocumented in this encounter Additional Health Concerns Assessment Noted Time PHQ-9 Depression Total Score: 10 025 4:27 PM EDT documented as of this encounter Care Teams Fire Production Operator Relationship Specialty Start Date End Date Bijal Mejia MD [address] [place] [address] [phone] PCP - General Family Medicine 02/16/18 Puma Sorto FNP [address] [place] [address] Nurse Practitioner Family Medicine 01/06/23 documented as of this encounter
--- OUTSIDE RECORDS SUMMARY | 2025-02-02 17:56 | XMS_ITS | Encounter Summary ---
Author Organization [employer] Address [address] [place] [address]797 Care Team Providers Care Computer Installer Name Role Phone Bijal Mejia MD Primary Care Provider [phone] Puma Sorto Unavailable Unavailable Reason for Visit * Reason Onset Date Comments Med Change Request Prior Authorization 01/26/2023 Encounter Details Date Type Department Care Team (Late st Contact Info) Description 01/26/2023 Refill [facility]INE [address] [place], [place] [phone] Bijal Mejia MD [address] [place] [address] Social History Tobacco Use Types Packs/Day Years [...] EST CHACHA req for Asmanex submitted through [facility]; awaiting decision. documented in this encounter Plan of Treatment Upcoming Encounters Date Type Department Care Team (Late st Contact Info) Description 02/07/2025 10:45 AM EST Office Visit [facility] MEDICINE [address] [place] [address] Bijal Mejia MD [address] [place] [address] 05/02/2025 3:30 PM EDT Office Visit [facility] OPTOMETRY [address] [place] [address] Donny, Марина, OD [address] [place] [address] documented as of this encounter Visit Diagnoses Not on filedocumented in this encounter Additional Health Concerns Assessment Noted Time PHQ-9 Depression Total Score: 3 01/23/20 23 3:38 PM EST documented as of this encounter Care Teams Computer Installer Relationship Specialty Start Date End Date Bijal Mejia MD [address] [place] [address] PCP - General Family Medicine 02/16/18 Puma Sorto FNP [address] [place] [address] Nurse Practitioner Family Medicine 01/06/23 documented as of this encounter
--- OUTSIDE RECORDS SUMMARY | 2025-02-02 17:56 | XMS_ITS | Clinical Summary ---
Author Organization [employer] Address [address] [place] [address] [place] [address] Care Team Providers Care Forensic Locksmith Name Role Phone Bijal Mejia MD Primary Care Provider [phone] Puma Sorto Unavailable Unavailable Allergies Active Allergy Reactions Criticality Noted Date Comments Sulfamethoxazole 09/23/2012 Trimethoprim 09/23/2012 Medications * This document contains information received from the source organization and may not represent a complete record from that organization. hydrocortisone (Anusol-HC) 2.5 % rectal creamIndications :Hemorrhoids, unspecified hemorrhoid type Insert into the rectum 2 times daily. 28 g 1 4 Active docusate sodium (Colace) 100 MG capsule Take 1 capsule (100 mg) by mouth if needed in the morning and at bedtime for constipation. 60 capsule 5 4 Active loratadine (Claritin) 10 MG tablet Take 1 tablet (10 mg) by mouth Once per day. 90 tablet 3 4 Active omeprazole (PriLOSEC) [address] capsule TAKE 1 CAPSULE BY MOUTH EVERY DAY NEEDED FOR HEARTBURN 90 capsule 3 5 Active simethicone (Mylicon,Gas-X) 180 MG [...] MOUTH TWICE A DAY NEEDED 4 Active sertraline (Zoloft) 100 MG tablet 5 Active albuterol 108 (90 Base) MCG/ACT inhaler INHALE 2 PUFFS BY MOUTH EVERY 4 HOURS IF NEEDED FOR WHEEZING OR SHORTNESS OF BREATH. MAX 8 PUFFS/DAY 18 g 3 5 Active fluticasone furoate (Arnuity Ellipta) 200 MCG/ACT inhaler TAKE 1 PUFF BY MOUTH ONCE A DAY. RINSE MOUTH AFTER USE. 30 each 2 5 Active levothyroxine (Synthroid, Levoxyl) 175 MCG tablet TAKE 1 TABLET BY MOUTH EVERY DAY 90 tablet 1 5 Active lamoTRIgine (LaMICtal) 200 MG tablet Take 1 tablet by mouth Once per day. 5 Active Active Problems Problem Noted Date Diagnosed Date IBS (irritable bowel syndrome) 05/20/2024 Assessment & Plan (05/20/2024 2:55 PM EDT): -previously seeing GI - continue dicyclomine and simethicone prn Abnormal uterine bleeding (AUB) 05/16/2024 Assessment & Plan (05/20/2024 2:49 PM EDT): - iron deficiency anemia - cotest on 04/20/24 double negative - seen by Dr. Pimentel, [facility]OUS[facility]. AUB full work-up started. Intracranial hypertension 01/28/2024 Assessment & Plan (08/19/2024 10:20 AM EDT): - Chronic headache - Dr. Hines, technical healthcare consultant, examined her and patient had papilledema in July 2023 - MRI ion 08/02/23 was normal (done at [facility]) - Following with neurologist Dr. Trimble Lumbar puncture by Dr. Trimble on 03/16/24. Opening pressure 34 cm H2O - Started on acetazolamide by Dr. Trimble after the LP - Continue acetazolamide - Pt will continue working on weight loss by life style modifications Assessment & Plan (07/04/2024 4:37 PM EDT): - Chronic headache - Dr. Hines, technical healthcare consultant, examined her and patient had papilledema in July 2023 - MRI ion 08/02/23 was normal (done at [facility]) - Following up with neurologist Dr. Trimble Lumbar puncture by Dr. Trimble on 03/16/24. Opening pressure 34 cm H2O - Started on Diamox by Dr. Trimble - Pt will continue working on weight loss by life style modifications Assessment & Plan (05/16/2024 5:20 PM EDT): - Chronic headache - Dr. Hines, technical healthcare consultant, examined her and patient had papilledema in July 2023 - MRI ion 08/02/23 was normal (done at [facility]) - Following up with neurologist Dr. Trimble Lumbar puncture by Dr. Trimble on 03/16/24. Opening pressure 34 cm H2O - Started on Diamox by Dr. Trimble - Pt will continue working on weight loss by life style modifications Assessment & Plan (01/28/2024 5:51 PM EST): - Chronic headache - Dr. Hines, technical healthcare consultant, examined her and patient had papilledema in July 2023 - MRI ion 08/02/23 was normal (done at [facility]) - Evaluated by neurologist, Dr. [...] PM EST): - evaluated by Dr. Waller, [facility] general surgery on 01/11/24 - internal and [...] hypertension / pseudotumor cerebri. - Following with [facility] Eye care and neurologist - Continue acetazolamide Assessment & Plan (01/28/2024 5:55 PM EST): - MRI normal in July 2023 - Following with [facility] Eye care Assessment & Plan (11/11/2023 10:17 AM EDT): Saw Ophthalmology on 07/22/23, had Optic Nerve Study showing Papilledema. Advised to refer to Neurology and obtain MR. MR Brain on 08/02/23 IMPRESSION: Unremarkable MR Brain without contrast. Referred to Neurology 11/11/23 to evaluate for possible normal pressure hydrocephalus. Chronic nonintractable headache 11/11/2023 Assessment & Plan (08/03/2024 12:05 PM EDT): - continue non-pharmacological measure - [...] modification - continue acetazolamide Assessment & Plan (05/20/2024 2:45 PM EDT): [...] supplementation - receiving iron infusion currently at [facility] - Evaluated by HOUSING INSTALLER for AUB - Up coming appointment with Tara Assessment & Plan (01/28/2024 6:15 PM EST): - iron deficiency (heavy menstruation) - patient has a difficulty taking iron supplementation and is interested in iron infusion - refer to hematology service for iron Elevated blood pressure read ing in office without diagnosis of hypertension 01/27/2023 Assessment & Plan (08/19/2024 10:17 AM EDT): -Goal BP< 130/80 per ACC/AHA guideline -Elevated BP today -Stage 1 hypertension category in April 2024 -Home blood pressure measurements are normal -Continue working on lifestyle modifications Assessment & Plan (05/16/2024 9:06 AM EDT): [...] omeprazole Mood disorder 03/18/2022 Assessment & Plan (08/19/2024 10:27 AM EDT): - behavioral health service provider: [facility]. Psych nurse practitioner Kizzy EVERETT - current dx: Bipolar type II, PTSD - differential dx: anxiety; depression; ADHD - current medication: lamotrigine 150 mg daily; sertraline 100 mg daily - previously tried buspirone, SSRI, clonidine, lurasidonne, and aripiprazole - continue current treatment plan Assessment & Plan (07/04/2024 4:37 PM EDT): - current dx: Bipolar type II, PTSD - differential dx: anxiety; depression; ADHD - current medication: lamotrigine 150 mg daily; sertraline 25 mg daily - previously tried buspirone, SSRI, clonidine, lurasidonne, and aripiprazole - continue current treatment plan Assessment & Plan (05/20/2024 2:53 PM EDT): [...] retiring, patient will be transferred to new [facility] prescriber. She is aware that this clinician will not be an employee of [facility] and gives permission to share PHI. [...] & Plan (01/27/2023 11:28 AM EST): - [facility] provider: [facility] clinician - most likely Bipolar Type II - Continue Aripiprazole 20 mg daily. (Puma has been entertaining an alternative that is metabolically-neutral medication such as Latuda and Geodon). - Continue Clonidine 0.1 mg at bedtime or BID - Pt is not taking Buspirone 30 mg prn - follow up with [facility] providers as scheduled Assessment & Plan [...] Allergic rhinitis 05/29/2014 01/21/2023 Assessment & Plan (08/19/2024 10:17 AM EDT): - continue loratadine and flonase Assessment & Plan (01/28/2024 5:51 PM EST): - continue loratadine and flonase Hypothyroidism 11/19/2012 01/21/2023 Assessment & Plan (08/19/2024 10:19 AM EDT): - current replacement levothyroxine 175 mcg, 1/2 tablet 1 day out of week, and 1 tablet for the rest of the week - Most recent TSH on 06/30/24 was 0.1 with free T4 =1.21 ng/dl - Will repeat lab and adjust levothyroxine dose accordingly Assessment & Plan (07/04/2024 4:35 PM EDT): - current replacement levothyroxine 175 mcg daily - Most recent TSH on 06/30/24 was 0.1 with free T4 =1.21 ng/dl - Will repeat lab and adjust levothyroxine dose accordingly Assessment & Plan (05/20/2024 2:55 PM EDT): [...] 01/21/2023 Asthma 09/23/2012 01/21/2023 Assessment & Plan (08/19/2024 10:22 AM EDT): - currently on mometasone ICS for maintenance and albuterol prn for rescue - consider MART - consider PFT in the future Assessment & Plan (05/16/2024 9:06 AM EDT): [...] PCOS Obesity 09/23/2012 01/21/2023 Assessment & Plan (08/03/2024 12:05 PM EDT): - patient has made a progress with lifestyle modifications - she is motivated to achieve healthy weight by lifestyle modifications, rather than medication or surgery - encouraged to continue working on lifestyle modifications. Assessment & Plan (07/04/2024 4:35 PM EDT): - patient has made a progress with lifestyle modifications - she is motivated to achieve healthy weight by lifestyle modifications, rather than medication or surgery - encouraged to continue working on lifestyle modifications. Assessment & Plan (05/20/2024 2:50 PM EDT): [...] Encounters Date Type Department Care Team Description 01/31/2025 Travel 01/23/2025 1:00 PM EST Office Visit [facility] OPT[facility] [address] [place] [address] Donny, Марина, OD Papilledema associated with increased intracranial pressure (Primary Dx); Ocular headache 01/23/2025 Travel 01/19/2025 Travel 01/10/2025 Refill [facility] [address] [place] [address] Bijal Mejia MD 12/09/2024 1:30 PM EDT Office Visit [facility] OPTOM[facility]RY [address] [place] [address] Donny, Марина, OD Papilledema associated with increased intracranial pressure (Primary Dx); Regular astigmatism of both eyes 12/09/2024 Travel 12/02/2024 Travel from Last 3 Months Immunizations Immunization [...] Orientation Straight 12/02/2024 12 :06 PM EDT Last Filed Vital Signs Vital Sign Reading Time Taken Comments Blood Pressure 122/88 08/03/2024 10:46 AM EDT Pulse 76 08/03/2024 10:26 AM EDT Temperature 36.2 C (97.1 F) 08/03/2024 10:26 AM EDT Respiratory Rate 23 08/03/2024 10:26 AM EDT Oxygen Saturation 98% 08/03/2024 10:26 AM EDT Inhaled Oxygen Concentration - - Weight 119 kg (261 lb 6.4 oz) 08/03/2024 10:26 A M EDT Height 154.9 cm (5' 1 ) 08/03/2024 10:26 AM EDT Body Mass Index 49.39 08/03/2024 10:26 AM EDT Plan of Treatment Upcoming Encounters Date Type Department Care Team (Late st Contact Info) Description 02/07/2025 10:45 AM EST Office Visit [facility] [address] [place] [address] Bijal Mejia MD [address] [place] [address] 05/02/2025 3:30 PM EDT Office Visit [facility] OPTOMETRY [address] [place] [address] Марина Hines, OD [address] [place] [address] Health Maintenance Due Date Last Done Comments Alcohol/Substance Use Screening 2007 Family Planning (PISQ) 2010 COVID-19 Vaccine ( season) 2024 11/11/2023, 01/26/2023, 02/19/2022, Additional history exists Influenza Vaccine (#1) 2024 , 01/26/2023, 11/04/2021, Additional history exists Depression Monitoring 11/15/2024 05/16/2024, 025 SDOH Screening 05/09/2025 05/09/2024 Tobacco Screening 12/26/2025 12/26/2024 Disability Screening 01/31/2026 01/31/2025 Pap Smear 05/11/2027 05/10/2024 Lipid Panel 01/28/2028 [...] Years) and At-Risk Patients (6 to 49) Years Completed 01/26/2023 Meningococcal B Vaccine Aged Out No l onger eligible based on patient's age to complete this topic RSV under 20 months Aged Out No longe r eligible based on patient's age to complete this topic Rotavirus Vaccines Aged Out No longer eligible based on patient's age to complete this topic Procedures Procedure Name Priority Date/Time Associated Diagnosis Comments OCT, OPTIC NERVE - OU - BOTH EYES Routine 12/09/2024 1:30 PM EDT Papilledema associated with increased intracranial pressure PAP SMEAR Routine 05/10/2024 2:01 PM EDT LIPID PANEL WITH REFLEX TO [...] Recently Relevant to Health Maintenance Results * OCT, Optic Nerve - OU - Both Eyes (12/09/2024 1:30 PM EDT) Narrative Марина Hines, OD - 12/23/2024 1:23 PM EST Images from the original result were not included. OCT OPTIC NERVE INTERPRETATION Optical Coherence Tomography Interpretation Report Test Details: Measurements: OD OS C/D Horizontal 0.00 0.20 C/D Vertical 0.00 0.25 Disc area 3.65 mm 2 2.24 mm 2 RNFL Average 99 microns 106 microns Test findings: OD: Definite RNFL thinning in superior quadrant, Borderline RNFL thinning of nasal quadrant, normal RNFL thickness in temporal and inferior quadrants. OS: Normal RNFL thickness in all quadrants Impression and Plan: Much decreased papilledema of right optic nerve. Stable appearing left optic nerve. Will have her return 1 month for updated visual field testing. us Марина Hines OD OPHTH TOMOGRAPHY Final Result * Pap Smear (05/10/2024 2:01 PM EDT) 05/10/2024 2:01 PM EDT 05/11/2024 7:30 AM EDT [facility] - 05/16/2024 8:31 AM EDT ----- ------- Name: Simran Hadley Age/Sex: 29/F : 1995 Unit#: [id number] Attend Dr: Joe Pimentel MD Re05/10/24 Status: DEP REF Location: [facility] Disch: ----- ------- SPEC : [id number] RECD: 05/11/24 STATUS: BEBE REAlyssa NUM: [id number] JED: 05/10/24-140 [facility] DR: Joe Pimentel MD ENTERED: 05/11/243456 SP TYPE: Pap Smr OT DR: Bijal Mejia MD ORDERED: Pap Smear Interpretation Satisfactory for evaluation. Negative for intraepithelial lesion or malignancy. No endocervical cells seen. HPV High Risk: Negative HPV Genotyping 16: Negative HPV Genotyping 18: Negative Clinical Information LMP:Unknown date Previous PAP test:Unknown date/findings Material Received ThinPrep-Cervical Copies To: Bijal Mejia MD [facility] [address] [place] [address] Joe Pimentel MD [facility] Women[facility] Services [address] [place] [address] ----- ------- Signed (signature on file) LEYLA Williamson (ASCP) 05/16/24 0831 ----- ------- END OF REPORT us Generic External Data Provider LAB CYTOLOGY BEVERLY BORJAS Final Result [facility] [address] [place], [place] [phone] * (ABNORMAL) Lipid Panel with Reflex to Direct LDL (01/27/2023 9:58 AM EST) Triglycerides 83 <150 mg/dL [facility] Comment:Desirable Triglyceri de: less than 150 mg/dLBorderline High Triglyceride 150-199 mg/dLHigh Triglyceride: 200-499 mg/dLVery High Triglyceride: greater than or equal to 5OO mg/dL Cholesterol 150 <200 mg/dL [facility] Comment:Desirable Cholestero l: less than 200 mg/dLBorderline High Cholesterol: 200-239 mg/dLHigh Cholesterol: greater than 239 mg/dL LDL Cholesterol Calculated 95 <100 mg/dL [facility] Comment:Desirable LDL: less than 100 mg/dLNear Optimal/Above Optimal LDL: 110- 129 mg/dLBorderline High LDL: 130-159 mg/dLHigh LDL: 160-189 mg/dLVery High LDL: greater than or equal to 190 mg/dL HDL Cholesterol 39(L) >40 mg/dL [facility] Comment:Desirable HDL: great er than 40 mg/dL Note: This HDL assay may give artificially low results in patients with liver disease. Blood 01/27/2023 9:58 AM EST 01/27/2023 11:12 AM EST Bijal Mejia MD LAB BLOOD ORDERABLES Final Resul t Performing Organization Address [facility] Co de Phone Number [facility] [address] [place] [address] [phone] * HEPATITIS C AB W/REFL TO HCV RNA, QN, PCR (07/18/2021 12:00 AM EDT) HEPATITIS C ANTIBODY NON-REACT RIMMA NON-REACT RIMMA [facility] INDEX 0.05 <1.00 [facility] Comment: HCV antibody was non-reactive. There is no laboratory evidence of HCV infection. In most cases, no further action is required. However, if recent HCV exposure is suspected, a test for HCV RNA (test code 97697) is suggested. For additional information please refer to http://education.Popcuts.Tech.eu/faq/ORY26k1 (This link is being provided for informational/ educational purposes only.) 07/18/2021 us Bijal Mejia MD HISTORICAL/NON ORDERABLE LABS Fi nal Result Performing Organization Address [facility] Co de Phone Number [facility] [address] * HIV 1/2 ANTIGEN/ANTIBODY,FOURTH GENERATION W/RFL (07/18/2021 12:00 AM EDT) HIV-1/2 ANTIGEN AND ANTIBODIES, 4TH GENERATION W/ REFLEX NON-REACT RIMMA NON-REACT RIMMA [facility] Comment: HIV-1 antigen and HIV-1/HIV-2 antibodies were not detected. There is no laboratory evidence of HIV infection. PLEASE NOTE: This information has been disclosed to you from records whose confidentiality may be protected by state law. If your state requires such protection, then the state law prohibits you from making any further disclosure of the information without the specific written consent of the person to whom it pertains, or as otherwise permitted by law. A general authorization for the release of medical or other information is NOT sufficient for this purpose. For additional information please refer to http://education.Fanear/faq/IWM977 (This link is being provided for informational/ educational purposes only.) The performance of this assay has not been clinically validated in patients less than 2 years old. 07/18/2021 us Bijal Mejia MD LAB BLOOD ORDERABLES Final Resul t [facility] [address] from Last 3 Months or Most Recently Relevant to Health Maintenance Insurance [facility] ONE CARE < 65 [place] [id number] Care Teams Forensic Locksmith Relationship Specialty Start Date End Date Bijal Mejia MD [address] [place] [address] PCP - General Family Medicine 02/16/18 Puma Sorto FNP [address] [place] [address] Nurse Practitioner Family Medicine 01/06/23
--- OUTSIDE RECORDS SUMMARY | 2025-02-02 17:56 | XMS_ITS | Encounter Summary ---
Author Organization [employer] Address [address] [place] [address] Care Team Providers Care Dry Cans Operator Name Role Phone Bijal Mejia MD Primary Care Provider [phone] Puma Sorto Unavailable Unavailable Encounter Details Date Type Department Care Team (Late Contact Info) Description 09/11/2022 Orders Only [facility] [address] [place], [place] [phone] Zoya Maldonado LPN Social History Tobacco Use [...] Description 02/07/2025 10:45 AM EST Office Visit [facility] MEDIC[facility] [address] [place], [place] [phone] Bijal Mejia MD [address] [place], [place] [phone] 05/02/2025 3:30 PM EDT Office Visit [facility] OPTOMETRY [address] [place] [address] Марина Hines, OD [address] [place] [address] documented as of this encounter Visit Diagnoses Not on filedocumented in this encounter Additional Health Concerns Assessment Noted Time PHQ-9 Depression Total Score: 4 03/18/19 23 1:44 PM EST documented as of this encounter Care Teams Dry Cans Operator Relationship Specialty Start Date End Date Bijal Mejia MD [address] [place] [address] PCP - General Family Medicine 02/16/18 Puma Sorto FNP [address] [place] [address] Nurse Practitioner Family Medicine 01/06/23 documented as of this encounter
--- OUTSIDE RECORDS SUMMARY | 2025-02-02 17:56 | XMS_ITS | Encounter Summary ---
Author Organization [employer] Address [address] [place] [address] [place] [address] Care Team Providers Care Terrazzo Polisher Name Role Phone Bijal Mejia MD Primary Care Provider [phone] Puma Sorto Unavailable Unavailable Reason for Visit * Reason Comments Med Refill Encounter Details Date Type Department Care Team ([facility] st Contact Info) Description 01/10/2025 Refill [facility] [address] [place], [place] [phone] Bijal Mejia MD [address] [place], [place] [phone] Social History Tobacco Use Types Packs/Day Years [...] Description 02/07/2025 10:45 AM EST Office Visit [facility] [address] [place] [address] Bijal Mejia MD [address] [place] [address] 05/02/2025 3:30 PM EDT Office Visit [facility] OPTOMETRY [address] [place] [address] Donny, Марина, OD [address] [place] [address] documented as of this encounter Visit Diagnoses Not on filedocumented in this encounter Additional Health Concerns Assessment Noted Time PHQ-9 Depression Total Score: 10 025 4:27 PM EDT documented as of this encounter Care Teams Terrazzo Polisher Relationship Specialty Start Date End Date Bijal Mejia MD [address] [place] [address] [phone] PCP - General Family Medicine 02/16/18 Puma Sorto FNP [address] [place] [address] Nurse Practitioner Family Medicine 01/06/23 documented as of this encounter
--- OUTSIDE RECORDS SUMMARY | 2025-02-02 17:56 | XMS_ITS | Encounter Summary ---
Author Organization [employer] Address [address] [place] [address] [address] [place] [address] Care Team Providers Care Engineering Surveyor Name Role Phone Bijal Mejia MD Primary Care Provider [phone] Puma Sorto Unavailable Unavailable Encounter Details Date Type Department Care Team (Latest Contact Info) Description 01/31/2025 Travel Social History Tobacco Use Types Packs/Day [...] Description 02/07/2025 10:45 AM EST Office Visit [facility] [address] [place] [address] Bijal Mejia MD [address] [place] [address] 05/02/2025 3:30 PM EDT Office Visit [facility] OPTOMET[facility] [address] [place] [address] Donny, Марина, OD [address] [place] [address] documented as of this encounter Visit Diagnoses Not on filedocumented in this encounter Additional Health Concerns Assessment Noted Time PHQ-9 Depression Total Score: 10 025 4:27 PM EDT documented as of this encounter Care Teams Engineering Surveyor Relationship Specialty Start Date End Date Bijal Mejia MD [address] [place] [address] PCP - General Family Medicine 02/16/18 Puma Sorto FNP [address] [place] [address] Nurse Practitioner Family Medicine 01/06/23 documented as of this encounter
--- OUTSIDE RECORDS SUMMARY | 2025-02-02 17:56 | XMS_ITS | Encounter Summary ---
Author Organization [employer] Address [address] [place] [address] Care Team Providers Care Fire Sprinkler Inspector Name Role Phone Bijal Mejia MD Primary Care Provider [phone] Puma Sorto Unavailable Unavailable Reason for Visit * Reason Onset Date Comments Med Refill 04/25/2024 Encounter Details Date Type Department Care Team ([facility] st Contact Info) Description 04/25/2024 Refill [facility] [address] [place], [place] [phone] Bijal Mejia MD [address] [place] [address] Social History Tobacco Use Types Packs/Day Years [...] Description 02/07/2025 10:45 AM EST Office Visit [facility] [address] [place] [address] Bijal Mejia MD [address] [place] [address] 05/02/2025 3:30 PM EDT Office Visit [facility] OPTOMETRY [address] [place] [address] Donny, Марина, OD [address] [place] [address] documented as of this encounter Visit Diagnoses Not on filedocumented in this encounter Additional Health Concerns Assessment Noted Time PHQ-9 Depression Total Score: 7 07/30/19 24 1:24 PM EDT documented as of this encounter Care Teams Fire Sprinkler Inspector Relationship Specialty Start Date End Date Bijal Mejia MD [address] [place] [id number] PCP - General Family Medicine 02/16/18 Puma Sorto FNP [address] [place] [address] Nurse Practitioner Family Medicine 01/06/23 documented as of this encounter
--- OUTSIDE RECORDS SUMMARY | 2025-02-02 17:56 | XMS_ITS | Encounter Summary ---
Author Organization [employer] Address [address] [place] [id number] Care Team Providers Care Microbiology Quality Control Technician Name Role Phone Bijal Mejia MD Primary Care Provider [phone] Puma Sorto Unavailable Unavailable Reason for Referral * Imaging (Routine) - Closed Specialty Diagnoses / Procedures Referred By Mina espinoza Referred To Contact Radiology Diagnoses Chronic nonintractable headache, unspecified headache type Papilledema Procedures MR Brain w/o Contrast Bijal Mejia MD [address] [place] [address] Phone: tel: fax: [facility] [address] [place] [address] Phone: tel: fax: Referral ID Status Reason Start Date Expiration Date Visits Re quested Visits Authorized [id number] Closed 07/22/2023 07/21/2024 1 1 Encounter Details Date Type Department Care Team (Late st Contact Info) Description 07/22/2023 Orders Only [facility] [address] [place], [place] [phone] Bijal Mejia MD [address] [place], [place] [phone] Anemia, unspecified type (Primary Dx); Chronic nonintractable [...] Description 02/07/2025 10:45 AM EST Office Visit [facility] [address] [place] [address] Bijal Mejia MD [address] [place] [address] 05/02/2025 3:30 PM EDT Office Visit [facility] [address] [place] [address] Марина Hines, OD [address] [place] [address] documented as of this encounter Procedures Procedure [...] Vitamin B12 486 200 - 900 pg/mL [facility] Comment:NORMAL 200-900 PG/ML INDETERMINATE 160-199 PG/ML DEFICIENT < 160 PG/ML Folate 4.5 > or = 4.0 ng/mL [facility] Comment:Reference Values:> o r = 4.0 ng/mL< 4.0 ng/mL suggests folate deficiency Methotrexate, aminopterin and folinic acid(leucovorin) are chemotherapeutic agents whose molecularstructures are similar to folate; therefore, the Architectfolate assay cannot be used for patients using these drugs. 07/29/2023 10:4 3 AM EDT 07/29/2023 11:15 AM EDT us Bijal Mejia MD LAB BLOOD ORDERABLES Final Resul t [facility] [address] [place] [phone] [phone] * (ABNORMAL) Iron And Total Iron Binding Capacity (07/29/2023 10:43 AM EDT) Pathologist [facility] Iron 24(L) 30 - 160 mcg/dL [facility] Total Iron Binding Capacity 341 228 - 428 mcg/dL [facility] Percent Iron Saturation 7(L) 15 - 50 % [facility] Unsaturated Iron Binding 317 ug/dL [facility] Blood Venous blood specimen / Unknown 07/29/2023 10:43 AM EDT 07/29/2023 11:15 AM EDT Bijal Mejia MD LAB BLOOD ORDERABLES Final Resul t Performing Organization Address [facility]/ZIP Co de Phone Number [facility] [address] [place] [phone] * (ABNORMAL) Ferritin (07/29/2023 10:43 AM EDT) [facility] Ferritin 8(L) 10 - 122 ng/mL [facility] Blood Venous blood specimen / Unknown 07/29/2023 10:43 AM EDT 07/29/2023 11:15 AM EDT Bijal Mejia MD LAB BLOOD ORDERABLES Final Resul t Performing Organization Address [facility] Co de Phone Number [facility] [address] [place] [phone] * (ABNORMAL) CBC auto differential (07/29/2023 10:43 AM EDT) [facility] White Blood Count 12.1(H) 4.8 - 10.8 X10*3/uL [facility] Red Blood Count 4.28 4.20 - 5.50 X10*6/uL [facility] Hemoglobin 9.8(L) 12.0 - 16.0 g/dl [facility] Hematocrit 33.1(L) 37.0 - 47.0 % [facility] Mean Corpuscular Volume 77.3(L) 80.0 - 98.0 fL [facility] Mean Corpuscular Hemoglobin 22.9(L) 27.0 - 33.0 pg [facility] Mean Corpuscular HGB Conc 29.6(L) 31.0 - 35.0 g/dl [facility] Red Cell Distribution Width 18.6(H) 11.0 - 16.0 % [facility] Platelet Count 350 160 - 400 X10*3/uL [facility] Mean Platelet Volume 10.0 9.4 - 12.3 fL [facility] Neutrophils Percent Auto 58.5 45 - 73 % [facility] Imm Gran Pct Auto 0.4 0.0 - 0.4 % [facility] Lymphocytes Percent Auto 29.8 20 - 40 % [facility] Monocytes Percent Auto 6.0 2 - 11 % [facility] Eosinophils Percent Auto 4.7(H) 0 - 4 % [facility] Basophils Percent Auto 0.6 0 - 2 % [facility] NRBC Pct Auto 0.0 0.0 - 0.2 /100WBC [facility] Neutrophils Absolute Auto 7.1 2.0 - 8.3 x10*3/uL [facility] Imm Gran Abs Auto 0.05(H) 0.00 - 0.03 X10*3/uL [facility] Lymphocytes Absolute Auto 3.6 1.2 - 4.9 X10*3/uL [facility] Monocytes Absolute Auto 0.7 0.1 - 1.2 X10*3/uL [facility] Eosinophils Absolute Auto 0.6(H) 0.0 - 0.4 X10*3/uL [facility] Basophils Absolute Auto 0.1 0.0 - 0.2 X10*3/uL [facility] NRBC Abs Auto 0.000 0.0 - 0.012 X10*3/uL [facility] Blood Venous blood specimen / Unknown 07/29/2023 10:43 AM EDT 07/29/2023 11:15 AM EDT us Bijal Mejia MD LAB BLOOD ORDERABLES Final Resul t [facility] [address] [place] [phone] * Comprehensive Metabolic Panel (07/29/2023 10:43 AM EDT) Sodium 139 135 - 145 mmol/L [facility] Potassium 3.7 3.3 - 5.1 mmol/L [facility] Chloride 105 96 - 108 mmol/L [facility] Carbon Dioxide 26 22 - 29 mmol/L [facility] Anion Gap 12 12 - 20 [facility] Urea Nitrogen (BUN) 11 9 - 16 mg/dL [facility] Creatinine, Serum 0.65 0.5 - 1.4 mg/dL [facility] Estimated Glomerular Filt Rate >60 [facility] Comment:NOTE: For -Am erican individuals, multiply the result by 1.210.Chronic Kidney Disease: Estimated GFR < 60 mL/min/1.01j7Cmjotm Kidney Disease: Estimated GFR < 15 mL/min/1.73m2 Glucose 102 60 - 115 mg/dL [facility] Calcium 9.5 8.4 - 10.2 mg/dL [facility] Bilirubin, Total 0.3 0.0 - 1.0 mg/dL [facility] Aspartate Amino Transferase 17 5 - 31 U/L [facility] Alanine Aminotransferase 26 0 - 31 U/L [facility] Total Protein 7.9 6.5 - 8.0 g/dL [facility] Albumin Level 3.9 3.5 - 5.0 g/dL [facility] Alkaline Phosphatase 95 39 - 117 U/L [facility] Blood Venous blood specimen / Unknown 07/29/2023 10:43 AM EDT 07/29/2023 11:15 AM EDT us Bijal Mejia MD LAB BLOOD ORDERABLES Final Resul t Performing Organization Address [facility]/ZIP Co de Phone Number [facility] [address] [place] [phone] * MR Brain w/o Contrast (07/02/2023) [...] documented as of this encounter Care Teams Microbiology Quality Control Technician Relationship Specialty Start Date End Date Bijal Mejia MD [address] [place] [address] PCP - General Family Medicine 02/16/18 Puma Sorto FNP [address] [place] [address] Nurse Practitioner Family Medicine 01/06/23 documented as of this encounter
--- OUTSIDE RECORDS SUMMARY | 2025-02-02 17:56 | XMS_ITS | Encounter Summary ---
Author Organization [employer] Address [address] [place] [address] Care Team Providers Care Archeology Faculty Member Name Role Phone Bijal Mejia MD Primary Care Provider [phone] Puma Sorto Unavailable Unavailable Reason for Visit * Reason Onset Date Comments Med Refill 06/02/2024 Encounter Details Date Type Department Care Team ([facility] st Contact Info) Description 06/02/2024 Refill [facility] [address] [place], [place] [phone] Bijal Mejia MD [address] [place] [address] Social History Tobacco Use Types Packs/Day Years [...] Description 02/07/2025 10:45 AM EST Office Visit [facility] [address] [place] [address] Bijal Mejia MD [address] [place] [address] 05/02/2025 3:30 PM EDT Office Visit [facility] [address] [place] [address] Donny, Марина, OD [address] [place] [address] documented as of this encounter Visit Diagnoses Not on filedocumented in this encounter Additional Health Concerns Assessment Noted Time PHQ-9 Depression Total Score: 10 025 4:27 PM EDT documented as of this encounter Care Teams Archeology Faculty Member Relationship Specialty Start Date End Date iBjal Mejia MD [address] [place] [phone] PCP - General Family Medicine 02/16/18 Puma Sorto FNP [address] [place] [address], [place] [address] Nurse Practitioner Family Medicine 01/06/23 documented as of this encounter
--- OUTSIDE RECORDS SUMMARY | 2025-02-02 17:56 | XMS_ITS | Encounter Summary ---
Author Organization [employer] Address [address] [place] [address] [address] [place] [address] Care Team Providers Care Family Physician Name Role Phone Bijal Mejia MD Primary Care Provider [phone] Puma Sorto Unavailable Unavailable Encounter Details Date Type Department Care Team ([facility] st Contact Info) Description 02/02/2023 Orders Only [facility] [address] [place], [place] [phone] Bijal Mejia MD [address] [place], [place] [phone] Anemia, unspecified type (Primary Dx) Social History [...] Description 02/07/2025 10:45 AM EST Office Visit [facility] [address] [place] [address] Bijal Mejia MD [address] [place] [address] 05/02/2025 3:30 PM EDT Office Visit [facility] [address] [place] [address] Donny, Марина, OD [address] [place] [address] documented as of this encounter Procedures Procedure [...] Vitamin B12 443 200 - 900 pg/mL [facility] Comment:NORMAL 200-900 PG/M L INDETERMINATE 160-199 PG/ML DEFICIENT < 160 PG/ML Folate 8.8 > or = 4.0 ng/mL [facility] Comment:Reference Values:> o r = 4.0 ng/mL< 4.0 ng/mL suggests folate deficiency Methotrexate, aminopterin and folinic acid(leucovorin) are chemotherapeutic agents whose molecularstructures are similar to folate; therefore, the Architectfolate assay cannot be used for patients using these drugs. 02/27/2023 11:5 2 AM EST 02/27/2023 11:52 AM EST us Bijal Mejia MD LAB BLOOD ORDERABLES Final Resul t Performing Organization Address [facility]/ZIP Co de Phone Number [facility] [address] [place] [phone] * (ABNORMAL) Iron And Total Iron Binding Capacity (02/27/2023 11:52 AM EST) Iron 45 30 - 160 mcg/dL [facility] Comment:Moderate Hemolysis Total Iron Binding Capacity 325 228 - 428 mcg/dL [facility] Percent Iron Saturation 14(L) 15 - 50 % [facility] Unsaturated Iron Binding 280 ug/dL [facility] Blood Venous blood specimen / Unknown 02/27/2023 11:52 AM EST 02/27/2023 11:52 AM EST us Bijal Mejia MD LAB BLOOD ORDERABLES Final Resul t Performing Organization Address [facility] Co de Phone Number [facility] [address] [place] [phone] * Ferritin (02/27/2023 11:52 AM EST) Ferritin 15 10 - 122 ng/mL [facility] Blood Venous blood specimen / Unknown 02/27/2023 11:52 AM EST 02/27/2023 11:52 AM EST Bijal Mejia MD LAB BLOOD ORDERABLES Final Resul t Performing Organization Address [facility] Co de Phone Number [facility] [address] [place] [phone] documented in this encounter Visit Diagnoses Diagnosis Anemia, unspecified type- Primary documented in this encounter Additional Health Concerns Assessment Noted Time PHQ-9 Depression Total Score: 3 01/23/20 23 3:38 PM EST documented as of this encounter Care Teams Family Physician Relationship Specialty Start Date End Date Bijal Mejia MD [address] [place] [address] PCP - General Family Medicine 02/16/18 Puma Sorto FNP [address] [place] [address] Nurse Practitioner Family Medicine 01/06/23 documented as of this encounter
--- OUTSIDE RECORDS SUMMARY | 2025-02-02 17:56 | XMS_ITS | Encounter Summary ---
Author Organization [employer] Address [address] [place] [address] 7 [place] [address] Care Team Providers Care Cemetery Vault Installer Name Role Phone Bijal Mejia MD Primary Care Provider [phone] Puma Sorto Unavailable Unavailable Encounter Details Date Type Department Care Team ([facility] st Contact Info) Description 07/29/2023 Orders Only [facility] [address] [place], [place] [phone] Bijal Mejia MD [address] [place], [place] [phone] Social History Tobacco Use Types Packs/Day Years [...] t he electric, gas, oil or water [employer] threatened to shut off services in your [...] 1:24 PM EDT Dawn Monsivais MA * How difficult have these problems made it for you to do your work, take care of things at home, or get along with other people? Answer Date of Assessment Author Somewhat difficult 07/30/2023 1:24 PM EDT Caridad Corona [place] * Over the past 2 weeks, how often have you been bothered by any of the following problems? Question Answer Date of Assessment Author Little interest or pleasure in doing things Not at all 07/30/2023 1:24 PM CONT Caridad Monsivais MA Feeling down, depressed, or [...] overeating Not at all 07/30/2023 1:24 PM CONT Caridad Monsivais MA Feeling bad about yourself - or that you are a failure or have let yourself or your family down Not at all 07/30/2023 1:24 PM CONT Caridad Monsivais MA Trouble concentrating on things, such as reading the newspaper or watching television More than half the days 07/30/2023 1:24 PM EDT Caridad Monsivais MA Moving or speaking so slowly that [...] Description 02/07/2025 10:45 AM EST Office Visit [facility] [address] [place] [address] Bijal Mejia MD [address] [place] [address] 05/02/2025 3:30 PM EDT Office Visit [facility] [address] [place] [address] Марина Hines, OD [address] [place] [address] documented as of this encounter Visit Diagnoses Not on filedocumented in this encounter Additional Health Concerns Assessment Noted Time PHQ-9 Depression Total Score: 18 024 3:30 PM EDT documented as of this encounter Care Teams Cemetery Vault Installer Relationship Specialty Start Date End Date Bijal Mejia MD [address] [place] [address] PCP - General Family Medicine 02/16/18 Puma Sorto FNP [address] [place] [phone] Nurse Practitioner Family Medicine 01/06/23 documented as of this encounter
== END 2025-02-02 14:11 | disposition home or self-care (01) ==
LOC: HO.HSM 13:45
PROVIDERS: PCP Family Medicine; Referring Provider Family Medicine; Visit Provider Psychiatry & Neurology Neurology
DX: G93.2 Benign intracranial hypertension (principal)
CPT/HCPCS: 99214

== ENCOUNTER → 2025-02-02 13:44 | Outpatient (BNVA) | payer OTHER, SELFPAY | PROVIDERS: PCP Family Medicine; Referring Provider Family Medicine; Visit Provider Psychiatry & Neurology Neurology | DX: G93.2 Benign intracranial hypertension (principal) | CPT/HCPCS: 99212 ==